=== PATIENT | female | born 1995 | race Caucasian/White ===

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

== ENCOUNTER → 2017-01-07 | Outpatient (CLI) | payer OTHER ==
[~2017-01-07] MED LIST changes: +BCPILLS PO; -ONDA4TAB10 SL
--- NOTE | 2017-01-07 17:21 | DIAGNOSTIC IMAGING REPORT ---
LEFT LOWER EXTREMITY VENOUS DOPPLER CLINICAL HISTORY: Left leg pain. COMPARISON STUDY: No previous studies for comparison. TECHNIQUE: Sonography of the deep venous system of the left lower extremity was performed. Compression and augmentation were evaluated. FINDINGS: The common femoral, superficial femoral and popliteal veins were compressible. Augmentation was normal. Flow was shown within the deep calf vessels. IMPRESSION: No evidence of deep venous thrombus within the left lower extremity. Electronically signed by: Darrian Jacobson M.D. 01/07/2017 5:20 PM Dictated Date/Time: 01/07/2017 5:15 PM
--- NOTE | 2017-01-07 17:36 | DIAGNOSTIC IMAGING REPORT ---
LEFT KNEE 4 VIEWS CLINICAL HISTORY: Left leg pain. FINDINGS: AP, crosstable lateral, tunnel, and sunrise views of left knee are obtained. No prior studies are available for comparison at the time of dictation. The skeletal structures are well mineralized. No fracture is seen. The joint spaces of the knee are well-maintained. There is no evidence of osteochondral defect on the tunnel image. No joint effusion is identified. The overlying soft tissues are within normal limits. IMPRESSION: Unremarkable radiographic assessment of the left knee. Electronically signed by: Werner Elder M.D. 01/07/2017 5:35 PM Dictated Date/Time: 01/07/2017 5:34 PM
== END | disposition home or self-care (01) ==
LOC: C.ULTR 16:47
PROVIDERS: ATTEND Student in an Organized Health Care Education/Training Program
DX: M25.562 Pain in left knee (principal); M79.605 Pain in left leg

== ENCOUNTER 2017-06-26 00:10 | Inpatient (IN) | payer OTHER ==
[~2017-06-26] VITALS: Ht 160 cm; Wt 63.4 kg
--- NOTE | 2017-06-26 01:10 | EMERGENCY ROOM VISIT NOTE ---
History Report prepared by Isaiah: Shree Orlando Under the Supervision of: Dr. Rachna Vernon D.O. First contact with patient: 00:24 Chief Complaint: LEG PAIN,LEG INJURY Stated Complaint: PAIN IN LFT LEG,KNEE CAP DOWN AND BACKSIDE History of Present Illness The patient is a 21 year old female who presents to the Emergency Room with complaints of constant, severe, left leg pain beginning four days ago. She currently rates her discomfort a 10/10 in severity. The patient states her pain starts above the left knee and radiates into her calf. She reports she has tried taking ibuprofen, but it is not helping. The patient notes bending her knee worsens her symptoms. She states she is experiencing numbness that radiates to her toes. The patient reports after showering, the painful area was red. She notes she has experienced six episodes of similar discomfort in the past 2 years. The patient states she was evaluated by her PCP and had an X-ray and US the last episode she had in January. She reports the US and x-ray were negative for clots. The patient notes she is still able to walk. She denies popping or locking of the knee, swelling, recent trauma, fevers, and chills. The patient notes she was hit in the knee with a softball six years ago before the first episode. Source of History: patient Onset: 4 days ago Position: leg (left) Symptom Intensity: severe Timing: constant Modifying Factors (Worsening): movement (bending it) Associated Symptoms: + numbness (radiates to her toes), No fevers, No chills Note: Associated symptoms: red discoloration to the painful area after showering Denies: popping or locking of the knee, swelling, recent trauma Review of Systems See HPI for pertinent positives & negatives. A total of 10 systems reviewed and were otherwise negative. Past Medical & Surgical Medical Problems: (1) Acute URI (2) Left leg swelling (3) Otitis externa of right ear (4) Septic arthritis (5) Swelling of joint of left knee Family History Diabetes mellitus FH: cancer Hypertension Social History Smoking Status: Current Every Day Smoker Alcohol Use: none Drug Use: none Marital Status: single Housing Status: lives with family Occupation Status: unemployed Current/Historical Medications Scheduled Sertraline (Zoloft), 50 MG PO DAILY Allergies Coded Allergies: No Known Allergies (Unverified , 07/28/16) Physical Exam Vital Signs Date Time Temp Pulse Resp B/P (MAP) Pulse Ox O2 Delivery O2 Flow Rate FiO2 06/26/17 03:30 106 15 119/71 100 Room Air 06/26/17 00:14 36.5 108 20 120/79 98 Room Air Physical Exam HEENT: Head - normocephalic and atraumatic Pupils are equal, round, and reactive to light. Extraocular eye muscles are intact, and sclera are anicteric. Nose - moist nasal mucosa without discharge. Mouth - moist buccal mucosa. Oropharynx is nonerythematous and there is no tonsillar exudate or edema noted. Neck: Supple; no JVD, nuchal rigidity, cervical lymphadenopathy. Heart: Regular rate and rhythm. No murmurs appreciated. Lungs: Clear to auscultation bilaterally with no wheezes, rales, or rhonchi. Abdomen: Soft, completely nontender, nondistended, with good bowel sounds. There are no palpable pulsatile masses or hepatosplenomegaly. There is no guarding, rigidity, or rebound noted. Extremities: No evidence of cyanosis or clubbing. There are easily palpable peripheral pulses.There is obvious edema to the left knee And pain with palpation. There is an effusion in the left knee. Tenderness to palpation in the popliteal fossa and the medial aspect of the left knee. Left calf is very edematous, tense, and painful. Skin: warm and dry with good turgor and no rashes. Medical Decision & Procedures ER Provider Diagnostic Interpretation: Radiology results as stated below per my review and the radiologist's interpretation: US VENOUS LEFT LOWER EXTREMITY: Prior 01/07/17 No DVT in the left lower extremity. Prominent nodes in the left groin. Likely within normal limits, with fatty morales. Multiple complex fluid collections. Distal left thigh to the medial knee in the area of pain: 8x2x6 cm. Left popliteal fossa 4x2x3 cm. Intramuscular collection from the distal left popliteal fossa region to the proximal calf 8x1x1 cm. DDX includes abscesses, hematoma, other complex fluid collections. Correlate and consider follow-up. Radiologist: Lexie Vergara MD Study ready at 0240 and initial results transmitted at 0247. Laboratory Results 06/26/17 01:04 Red Blood Count 4.30, Mean Corpuscular Volume 88.4, Mean Corpuscular Hemoglobin 30.9, Mean Corpuscular Hemoglobin Concent 35.0, Mean Platelet Volume 9.8, Neutrophils (%) (Auto) 77.6, Lymphocytes (%) (Auto) 14.1, Monocytes (%) (Auto) 7.2, Eosinophils (%) (Auto) 0.3, Basophils (%) (Auto) 0.5, Neutrophils # (Auto) 9.10, Lymphocytes # (Auto) 1.66, Monocytes # (Auto) 0.85, Eosinophils # (Auto) 0.03, Basophils # (Auto) 0.06 Test 06/26/17 01:04 White Blood Count 11.74 K/uL (4.8-10.8) Red Blood Count 4.30 M/uL (4.2-5.4) Hemoglobin 13.3 g/dL (12.0-16.0) Hematocrit 38.0 % (37-47) Mean Corpuscular Volume 88.4 fL (80-100) Mean Corpuscular Hemoglobin 30.9 pg (25-34) Mean Corpuscular Hemoglobin Concent 35.0 g/dl (32-36) Platelet Count 340 K/uL (130-400) Mean Platelet Volume 9.8 fL (7.4-10.4) Neutrophils (%) (Auto) 77.6 % Lymphocytes (%) (Auto) 14.1 % Monocytes (%) (Auto) 7.2 % Eosinophils (%) (Auto) 0.3 % Basophils (%) (Auto) 0.5 % Neutrophils # (Auto) 9.10 K/uL (1.4-6.5) Lymphocytes # (Auto) 1.66 K/uL (1.2-3.4) Monocytes # (Auto) 0.85 K/uL (0.11-0.59) Eosinophils # (Auto) 0.03 K/uL (0-0.5) Basophils # (Auto) 0.06 K/uL (0-0.2) RDW Standard Deviation 38.4 fL (36.4-46.3) RDW Coefficient of Variation 12.0 % (11.5-14.5) Immature Granulocyte % (Auto) 0.3 % Immature Granulocyte # (Auto) 0.04 K/uL (0.00-0.02) Erythrocyte Sedimentation Rate 24 mm/hr (0-21) C-Reactive Protein 1.06 mg/dl (0-0.29) Lyme Disease IgG Antibody POS (NEG) Laboratory results per my review. Medications Administered Medications (Trade) Dose Ordered Sig/Abelino Route Start Time Stop Time Status Last Admin Dose Admin Ketorolac Tromethamine (Toradol Inj) 30 mg NOW STAT IV 06/26/17 01:13 06/26/17 01:16 DC 06/26/17 01:26 30 MG Oxycodone/ Acetaminophen (Percocet 5-325mg Tab) 1 tab NOW STAT PO 06/26/17 01:13 06/26/17 01:16 DC 06/26/17 01:26 1 TAB Hydromorphone HCl (Dilaudid Inj) 0.5 mg NOW STAT IV 06/26/17 03:31 06/26/17 03:32 DC 06/26/17 03:36 0.5 MG Ceftriaxone Sodium (Rocephin Inj) 1 gm NOW STAT IV 06/26/17 04:05 06/26/17 04:10 DC 06/26/17 05:17 1 GM Vancomycin HCl 1000 mg/Sodium Chloride 270 ml @ 125 mls/hr NOW STAT IV 06/26/17 04:05 06/26/17 06:14 DC 06/26/17 06:08 125 MLS/HR Procedure 0113: Ordered Oxycodone/Acetaminophen 1 tab PO, Toradol Inj 30mg IV 0331: Ordered Hydromorphone HCl 0.5mg IV 0405: Ordered Vancomycin HCl 1000mg/Sodium Chloride 270ml @ 125mls/hr IV, Rocephin Inj 1gm IV ED Course 0034: Past medical records reviewed. The patient was evaluated in room A02 by the medical student under my supervision. 0055: The patient was evaluated in room A02 by me. A complete history and physical examination were performed. Nursing notes and previous electronic medical records were reviewed. IV lock was established and labs were drawn as above. I also completed a bedside ultrasound that showed obvious joint effusion. I was unable to test ligaments or ROM of the left knee secondary to pain. 0113: Ordered Oxycodone/Acetaminophen 1 tab PO, Toradol Inj 30mg IV. The patient went for a DVT study through ultrasound.. 0328: The patient has had increased pain and will be receiving Dilaudid. 0331: Ordered Hydromorphone HCl 0.5mg IV. I reviewed the results of the ultrasound with the patient and her mother. 0351: I discussed the case with Dr. Yuan, Orthopedics. It is recommended that medicine admit the patient and consult orthopedics. He recommended treating the patient with antibiotics presuming this may be infectious. 0402: Upon reevaluation, I discussed findings and results with her. She is much more comfortable. She verbalized agreement of the treatment plan. The patient will be evaluated for further management and care. 0405: Ordered Vancomycin HCl 1000mg/Sodium Chloride 270ml @ 125mls/hr IV, Rocephin Inj 1gm IV 0406: I discussed the patient's case [facility] The patient will be evaluated for further management and care. Medical Decision The patient is a 21 year old female who presents to the ED with constant left leg pain. Differential diagnosis includes septic arthritis, GOUT, Liang's cyst, bursitis, ligamentous injury, meniscus injury, DVT. Lab results show: WBC of 11.7, stable H&H, SED rate of 24, C-reactive protein of 1.06 This is a 21 old female patient presents to the emergency department with significant discomfort in her left knee. She has obvious edema and decreased range of motion secondary to pain. Ultrasound was performed at the bedside which showed an obvious joint effusion. She went for formal ultrasound of the left lower extremity to rule out DVT. This was negative for DVT but showed multiple complex fluid collections. There appeared to be some involvement or fluid collection within muscle. This was concerning for myositis or significant abscess. I discussed the case with orthopedics and they recommended IV antibiotics and admission to the hospital for further care. I [facility] the [facility] and [facility] will evaluate for further management. The patient did finally get relief of her discomfort with the IV analgesia that I administered. Medication Reconcilliation Current Medication List: was personally reviewed by me Blood Pressure Screening Patient's blood pressure: Normal blood pressure Blood pressure disposition: Did not require urgent referral Consults Time Called: [phone] Consulting Physician: Dr. Yuan, Orthopedics Returned Call: [phone] I discussed the case with Dr. Yuan, Orthopedics. It is recommended that medicine be consulted and treat the patient as if it is infectious. Additional Consults: Time Called: 401 Consulted Physician: Jacqueline Chaidez Hospitalist Returned Call: [phone] Additional Comments: I discussed the patient's case with Jacqueline Chaidez Hospitalist. The patient will be evaluated for further management and care. Impression Primary Impression: Swelling of joint of left knee Additional Impression: Knee effusion, left Scribe Attestation The scribe's documentation has been prepared under my direction and personally reviewed by me in its entirety. I confirm that the note above accurately reflects all work, treatment, procedures, and medical decision making performed by me. Departure Information Dispostion Being Evaluated By Hospitalist Referrals No Doctor, Assigned (PCP) Patient Instructions My [facility] Problem Qualifiers
[2017-06-26] MEDS ORDERED: KETOROLAC TROMETHAMINE 30 MG/ML VIAL IV STA (01:13)
[2017-06-26] MEDS ORDERED: OXYCODONE/ACETAMINOPHEN 5-325 TAB PO STA (01:13)
[2017-06-26 01:47] LABS: BASO % 0.5 %; BASO ABS # 0.06 K/uL (0-0.2); EOS % 0.3 %; EOS ABS # 0.03 K/uL (0-0.5); HEMOGLOBIN 13.3 g/dL (12.0-16.0); IG# 0.04 K/uL (0.00-0.02); LYMPH % 14.1 %; LYMPH ABS # 1.66 K/uL (1.2-3.4); MEAN CELL VOLUME 88.4 fL (80-100); MEAN CORPUSCULAR HEMOGLOBIN 30.9 pg (25-34); MEAN PLATELET VOLUME 9.8 fL (7.4-10.4); MONO % 7.2 %; MONO ABS # 0.85 K/uL (0.11-0.59); NEUT % 77.6 %; PLATELET COUNT 340 K/uL (130-400); RED CELL DISTRIBUTION WIDTH SD 38.4 fL (36.4-46.3); WHITE BLOOD COUNT 11.74 K/uL (4.8-10.8)
[2017-06-26] MEDS ORDERED: HYDROmorphone INJ 0.5 MG/0.5 ML SYR IV STA ×2 (03:31→05:05)
[2017-06-26] MEDS ORDERED: SERT50TA PO (04:05)
[2017-06-26] MEDS ORDERED: CEFTRIAXONE SOD INJ 1 GM ADDVIAL IV STA (04:05)
[2017-06-26] MEDS ORDERED: VANCOMYCIN IV 1,000 MG in SODIUM CHLORIDE 0.9% 250ML 250 ML IV STA (04:05)
[2017-06-26] MEDS ORDERED: VANCOMYCIN CONSULT ACTIVE PRN ×2 (04:15→15:11)
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
[2017-06-26] MEDS ORDERED: IV FLUIDS COMPLETED PRN (05:30)
[2017-06-26 05:59] LABS: ALBUMIN 3.4 gm/dl (3.4-5.0); CALCIUM 8.7 mg/dl (8.5-10.1); CREATININE 0.64 mg/dl (0.60-1.20); POTASSIUM 3.2 mmol/L (3.5-5.1)
[2017-06-26 06:00] VITALS: BP 103/62; PULSE 72; TEMP 36.7; O2SAT 98; Ht 160 cm; Wt 63.4 kg
[2017-06-26 06:02] LABS: TOTAL PROTEIN 6.9 gm/dl (6.4-8.2)
[2017-06-26] MEDS: ACETAMINOPHEN 325 MG TAB PO PRN (06:29)
[2017-06-26] MEDS ORDERED: INFLUENZA VIRUS QUAD VACCINE 0.5 ML SYR IM. ONE (07:00)
[2017-06-26] MEDS ORDERED: INFLUENZA ADMINISTRATION CHARGE ONE (07:00)
[2017-06-26 07:06] VITALS: BP 91/52; PULSE 71; TEMP 36.5; O2SAT 99
--- NOTE | 2017-06-26 07:15 | DIAGNOSTIC IMAGING REPORT ---
L VENOUS DOPP LOWER EXT UNILAT CLINICAL HISTORY: 21 years-old Female presenting with eval for dvt, no history of recent injury. TECHNIQUE: Real-time grayscale and color and spectral Doppler ultrasound imaging of the veins of the left lower extremity was performed. Compression and augmentation were also utilized. COMPARISON: 01/07/2017. FINDINGS: Left: Common femoral vein: Patent. Greater saphenous vein: Patent. Deep femoral vein: Patent. Femoral vein: Patent. Popliteal vein: Patent. Calf veins: Patent. Other: Multiple prominent benign-appearing lymph nodes in the left inguinal region and left popliteal fossa. A 2.6 x 4.3 x 1.5 cm hypoechoic complex lesion in the popliteal fossa demonstrates no internal vascularity on color Doppler. A 7.8 x 1.0 x 1.2 cm elongated hypoechoic collection in the left popliteal fossa immediately adjacent to the vascular bundle is avascular on color Doppler and is likely subjacent to the proximal gastrocnemius. Additionally, in the anterior medial left knee at the region of pain, an anechoic collection with internal complexity evidence by polypoid septae measures 8.0 x 1.8 x 6.4 cm. IMPRESSION: 1. No evidence of deep venous thrombosis. 2. Reactive benign-appearing lymph nodes in the left groin and left popliteal fossa. 3. Findings concerning for hematoma in the left popliteal fossa. 4. Additional avascular complex lesion in the popliteal fossa is indeterminate. 5. Primarily anechoic collection in the anterior distal thigh may represent the suprapatellar recess of the knee joint in the presence of a large knee joint effusion and synovitis. Recommend MRI of the knee with and without contrast for further evaluation. The report will be called/faxed according to standard departmental protocol. Electronically signed by: Jorge Graf M.D. 06/26/2017 7:13 AM Dictated Date/Time: 06/26/2017 7:08 AM
[2017-06-26] MEDS ORDERED: GADAVIST IV PRN (09:15)
--- NOTE | 2017-06-26 09:41 | DIAGNOSTIC IMAGING REPORT ---
LOWER EXT JOINT COMBO CLINICAL HISTORY: 21 years-old Female presenting with left leg swelling, left knee pain and swelling started 06/22/2017, no known injury. TECHNIQUE: Multisequence, multiplanar MR imaging of the left knee was performed before and after the administration of intravenous contrast. IV contrast: 6 mL of Gadavist. COMPARISON: Correlation made to ultrasound performed earlier the same day as well as plain radiographs from 01/07/2017. FINDINGS: Localizer images: Unremarkable. Bone marrow: Normal bone marrow signal intensity. No bony edema. Articular cartilage: Articular cartilage preserved. Menisci: Medial and lateral menisci intact. Cruciate ligaments: Anterior and posterior cruciate ligaments intact. Collateral ligament: Medial collateral ligament intact. Lateral collateral ligament complex including the biceps femoris tendon, fibular collateral ligament, popliteal tendon, and iliotibial band intact. Superficial edema noted along the distal aspect of the iliotibial band. Quadriceps and patellar tendons: Quadriceps and patellar tendons intact. Knee joint effusion: Large knee joint effusion. Intense synovial enhancement and mild synovial thickening suggests synovitis. The fluid noted deep to the medial head of the gastrocnemius likely represents extension of synovial fluid as this appears to connect to the knee joint (series 11 image 17). However, this portion of synovial outpouching is irregular with mild surrounding vague enhancement suggesting inflammation. Prominent popliteal cyst. Muscle: Intramuscular edema noted in the medial head of the gastrocnemius extending from the origin at the femur distally involving a large portion of the visualized muscle belly. Extensive surrounding interfascial fluid. The tendon at the origin of the medial gastrocnemius head is intact. The myotendinous junction remains intact though demonstrates the greatest degree of surrounding intramuscular edema. The lateral gastrocnemius is essentially normal. IMPRESSION: 1. Findings consistent with large knee joint effusion with possible synovitis. This is nonspecific. Differential considerations include trauma, inflammatory arthropathy, or infection. Infection is felt to be less likely given the absence of any bone marrow edema. Aspiration could be considered as clinically indicated. 2. Extensive intramuscular edema within the medial gastrocnemius may imply muscle strain in the setting of overuse or trauma. No evidence of myotendinous or tendinous tear. If there is no history of overuse or trauma, muscular edema may be reactive to adjacent inflammatory change at the knee joint. 3. Prominent popliteal cyst with greater extension of a synovial outpouching deep to the medial gastrocnemius than is usually observed. Inflammatory change surrounds this portion. It is uncertain if this represents rupture of a popliteal cyst with secondary inflammatory change, or this outpouching is consequent to the large joint effusion with joint inflammatory change. No solid mass. The report will be called/faxed according to standard departmental protocol. Electronically signed by: Jorge Graf M.D. 06/26/2017 9:40 AM Dictated Date/Time: 06/26/2017 9:24 AM
--- NOTE | 2017-06-26 10:04 | DIAGNOSTIC IMAGING REPORT ---
KNEE 4 OR MORE VIEWS CLINICAL HISTORY: 21 years-old Female presenting with left knee swelling. TECHNIQUE: Frontal, sunrise, tunnel, and lateral views of the left knee were obtained. COMPARISON: MR from earlier the same day. FINDINGS: No acute fracture or malalignment. Large knee joint effusion. Diffuse soft tissue swelling. No patellar subluxation. No degenerative change. IMPRESSION: Large knee joint effusion without acute osseous injury. Electronically signed by: Jorge Graf M.D. 06/26/2017 10:02 AM Dictated Date/Time: 06/26/2017 10:02 AM
[2017-06-26] MEDS ORDERED: NURSING VERBAL MED ORDER ONE ×2 (10:45→11:00)
[2017-06-26] MEDS ORDERED: TRAMADOL HCL 50 MG TAB PO PRN (11:00)
[2017-06-26] MEDS: MoRPHine SULFATE 2 MG/ML CARP IV PRN ×2 (13:22→18:09)
[2017-06-26] MEDS ORDERED: ETHYL CHLORIDE AER SPR 100 ML CAN EXT ONE (13:30)
--- NOTE | 2017-06-26 14:22 | Orthopedic Consultation ---
Orthopedic Consultation Date of Consultation: Jun 26, 2017. Attending Physician: Gerald Hinton MD Reason for Consultation: Left knee pain History of Present Illness The patient is a 21-year-old female who presents for evaluation for chronic atraumatic left knee pain which began in January 2017. Previously seen [facility] x-rays performed which were negative at that time. Initial symptoms lasted for a couple weeks she reports. Pain returned this previous Friday and has progressively gotten worse. She reports swelling of the knee, but denies trauma, fevers, chills, nausea, vomiting, diarrhea. She has pain and difficulty bearing weight. She denies numbness tingling to the left lower extremity. She denies previous surgery. Denies prior rash or tick bite. Past Medical/Surgical History Medical Problems: (1) Closed head injury Status: Acute (2) Concussion Status: Acute (3) Headache Status: Acute (4) Neck pain Status: Acute Family History Diabetes mellitus FH: cancer Hypertension Social History Smoking Status: Current Every Day Smoker Drug Use: none Marital Status: single Housing Status: lives with family Occupation Status: student Allergies Coded Allergies: No Known Allergies (Unverified , 07/28/16) Home Medications Scheduled Sertraline (Zoloft), 50 MG PO DAILY Current Inpatient Medications Current Inpatient Medications Medications (Trade) Dose Ordered Sig/Abelino Route Start Time Stop Time Status Last Admin Dose Admin Acetaminophen (Tylenol Tab) 325 mg Q4H PRN PO 06/26/17 05:15 07/26/17 05:14 Miscellaneous (Iv Fluids Completed) 1 ea PRN PRN N/A 06/26/17 05:30 06/26/18 05:29 Gadobutrol (Gadavist) 6 mmol UD PRN IV 06/26/17 09:15 06/30/17 09:14 Tramadol HCl (Ultram Tab) `1-2 tabs for pain 1 tab ... Q4H PRN PO 06/26/17 11:00 07/26/17 10:59 06/26/17 10:58 100 MG Morphine Sulfate (MoRPHine SULFATE INJ) 2 mg Q4HWA PRN IV 06/26/17 13:00 07/10/17 12:59 06/26/17 13:22 2 MG Review of Systems Review of systems negative with the exception of those mentioned in the HPI above. Physical Exam Date Time Temp Pulse Resp B/P (MAP) Pulse Ox O2 Delivery O2 Flow Rate FiO2 06/26/17 07:52 Room Air 06/26/17 07:06 36.5 71 14 91/52 (65) 99 Room Air 06/26/17 06:00 36.7 72 18 103/62 98 Room Air 06/26/17 05:33 70 15 119/66 95 06/26/17 05:21 71 15 119/66 97 Room Air 06/26/17 03:30 106 15 119/71 100 Room Air 06/26/17 00:14 36.5 108 20 120/79 98 Room Air No apparent distress, alert and oriented 3. Left lower extremity is neurovascularly sensory intact grossly. Positive EHL/ FHL/GS/TA, range of motion limited secondary to pain, 0-45 of flexion. No erythema, large effusion. Skin normal and temperature to touch. Compartments soft nontender. Laboratory Results Last 24 Hours Test 06/26/17 01:04 06/26/17 05:29 06/26/17 13:40 White Blood Count 11.74 K/uL Red Blood Count 4.30 M/uL Hemoglobin 13.3 g/dL Hematocrit 38.0 % Mean Corpuscular Volume 88.4 fL Mean Corpuscular Hemoglobin 30.9 pg Mean Corpuscular Hemoglobin Concent 35.0 g/dl Platelet Count 340 K/uL Mean Platelet Volume 9.8 fL Neutrophils (%) (Auto) 77.6 % Lymphocytes (%) (Auto) 14.1 % Monocytes (%) (Auto) 7.2 % Eosinophils (%) (Auto) 0.3 % Basophils (%) (Auto) 0.5 % Neutrophils # (Auto) 9.10 K/uL Lymphocytes # (Auto) 1.66 K/uL Monocytes # (Auto) 0.85 K/uL Eosinophils # (Auto) 0.03 K/uL Basophils # (Auto) 0.06 K/uL RDW Standard Deviation 38.4 fL RDW Coefficient of Variation 12.0 % Immature Granulocyte % (Auto) 0.3 % Immature Granulocyte # (Auto) 0.04 K/uL Erythrocyte Sedimentation Rate 24 mm/hr C-Reactive Protein 1.06 mg/dl Sodium Level 138 mmol/L Potassium Level 3.2 mmol/L Chloride Level 107 mmol/L Carbon Dioxide Level 25 mmol/L Anion Gap 6.0 mmol/L Blood Urea Nitrogen 12 mg/dl Creatinine 0.64 mg/dl Est Creatinine Clear Calc Drug Dose 127.9 ml/min Estimated GFR () 149.9 Estimated GFR (Non- 129.4 BUN/Creatinine Ratio 17.9 Random Glucose 97 mg/dl Calcium Level 8.7 mg/dl Total Bilirubin 0.7 mg/dl Aspartate Amino Transf (AST/SGOT) 11 U/L Alanine Aminotransferase (ALT/SGPT) 12 U/L Alkaline Phosphatase 73 U/L Total Protein 6.9 gm/dl Albumin 3.4 gm/dl Globulin 3.5 gm/dl Albumin/Globulin Ratio 1.0 Assessment & Plan 21 yo female with chronic atraumatic left knee pain, effusion. I indicated the patient for a arthrocentesis of her left knee, risks/benefits were explained to the patient in detail. Verbal consent was obtained at that time. Under sterile conditions 38 cc of bright yellow cloudy fluid, with obvious precipitate was aspirated from the left knee. The patient tolerated the procedure well and noted relief in her symptoms as well as increase range of motion to 90 of flexion. Synovial fluid sent for cell count, Gram stain culture, fungal, crystals, Lyme. Based on the patient's physical exam and clinical presentation differentials include aseptic synovitis, gout, Lyme and septic arthritis which is less likely. -Pain control -Maintain NPO -Will f/u lab results once available -Trend inflammatory labs I reviewed the patient's imaging and the results are noted below. Thank you for the consultation. Results LOWER EXT JOINT COMBO CLINICAL HISTORY: 21 years-old Female presenting with left leg swelling, left knee pain and swelling started 06/22/2017, no known injury. TECHNIQUE: Multisequence, multiplanar MR imaging of the left knee was performed before and after the administration of intravenous contrast. IV contrast: 6 mL of Gadavist. COMPARISON: Correlation made to ultrasound performed earlier the same day as well as plain radiographs from 01/07/2017. FINDINGS: Localizer images: Unremarkable. Bone marrow: Normal bone marrow signal intensity. No bony edema. Articular cartilage: Articular cartilage preserved. Menisci: Medial and lateral menisci intact. Cruciate ligaments: Anterior and posterior cruciate ligaments intact. Collateral ligament: Medial collateral ligament intact. Lateral collateral ligament complex including the biceps femoris tendon, fibular collateral ligament, popliteal tendon, and iliotibial band intact. Superficial edema noted along the distal aspect of the iliotibial band. Quadriceps and patellar tendons: Quadriceps and patellar tendons intact. Knee joint effusion: Large knee joint effusion. Intense synovial enhancement and mild synovial thickening suggests synovitis. The fluid noted deep to the medial head of the gastrocnemius likely represents extension of synovial fluid as this appears to connect to the knee joint (series 11 image 17). However, this portion of synovial outpouching is irregular with mild surrounding vague enhancement suggesting inflammation. Prominent popliteal cyst. Muscle: Intramuscular edema noted in the medial head of the gastrocnemius extending from the origin at the femur distally involving a large portion of the visualized muscle belly. Extensive surrounding interfascial fluid. The tendon at the origin of the medial gastrocnemius head is intact. The myotendinous junction remains intact though demonstrates the greatest degree of surrounding intramuscular edema. The lateral gastrocnemius is essentially normal. IMPRESSION: 1. Findings consistent with large knee joint effusion with possible synovitis. This is nonspecific. Differential considerations include trauma, inflammatory arthropathy, or infection. Infection is felt to be less likely given the absence of any bone marrow edema. Aspiration could be considered as clinically indicated. 2. Extensive intramuscular edema within the medial gastrocnemius may imply muscle strain in the setting of overuse or trauma. No evidence of myotendinous or tendinous tear. If there is no history of overuse or trauma, muscular edema may be reactive to adjacent inflammatory change at the knee joint. 3. Prominent popliteal cyst with greater extension of a synovial outpouching deep to the medial gastrocnemius than is usually observed. Inflammatory change surrounds this portion. It is uncertain if this represents rupture of a popliteal cyst with secondary inflammatory change, or this outpouching is consequent to the large joint effusion with joint inflammatory change. No solid mass.
[2017-06-26] MEDS ORDERED: POTASSIUM CHLORIDE 10 MEQ TABCR PO ONE (15:00)
[2017-06-26] MEDS ORDERED: PIPERACILL/TAZOBAC CONSULT ACTIVE PRN (15:15)
[2017-06-26] MEDS ORDERED: VANCOMYCIN IV 1,500 MG in SODIUM CHLORIDE 0.9% 500ML 500 ML IV ONE (15:30)
[2017-06-26 15:33] VITALS: BP 100/61; PULSE 73; TEMP 36.6; O2SAT 97
[2017-06-26] MEDS: NSS + 20MEQ KCL 1000ML 1,000 ML IV SCH (15:51)
[2017-06-26] MEDS ORDERED: PIPERACILL/TAZOBAC IV 3.375 GM in DEXTROSE 5% 100ML IV ONE (16:00)
--- NOTE | 2017-06-26 16:20 | Pharmacy Progress Note ---
Pharmacy Abx Dose Short Note Date of Service Jun 26, 2017. Assessment & Plan Assessment 21 year old female receiving Vancomycin and Zosyn for treatment of possible septic arthritis. Day # 1 of antimicrobial therapy. * No prior history of surgery or known tick bite. * Pt is afebrile * WBC=11.7 * Blood and joint fluid cultures pending Plan Vancomycin * Loading dose: 1500mg (25mg/kg) IV x 1 * Maintenance dose: 1 gm IV q 8 hours. * Goal trough for septic arthritis: 15-20mcg/mL * Trough level ordered for 06/27 @2130 Zosyn * 3.375 gm IV x 1 * 3.375 gm IV extended interval infusion q 8 hours Pharmacy will continue to follow and will adjust dose/frequency as necessary. Thank you.
[2017-06-26 19:06] VITALS: TEMP 36.6
[2017-06-26] MEDS ORDERED: DiphenhydrAMINE HCL 50 MG/ML VIAL IV STA (19:23)
[2017-06-26] MEDS ORDERED: CONSULT PHARMACY STA (19:23)
[2017-06-26] MEDS ORDERED: DiphenhydrAMINE HCL 50 MG/ML VIAL IV PRN (19:30)
[2017-06-26] MEDS ORDERED: DiphenhydrAMINE HCL 50 MG/ML VIAL ONE (19:45)
--- NOTE | 2017-06-26 19:47 | Progress Note ---
Medicine Progress Note Date & Time of Visit: Jun 26, 2017 at 19:37. Subjective seen resting in bed, mother and grandmother at bedside s/p arthrocentesis states left knee pain is moderate denies fever/chills denies other symptoms Objective Last 8 Hrs Date Time Temp Pulse Resp B/P (MAP) Pulse Ox O2 Delivery O2 Flow Rate FiO2 06/26/17 19:06 36.6 06/26/17 15:33 36.6 73 18 100/61 (74) 97 Room Air Physical Exam: General- oriented x 3, not in distress, speaks in sentences with no effort Head- atraumatic Eyes- PERRL, EOMI, anicteric ENT- oropharynx clear Neck- supple, no JVD Lungs- clear breath sounds bilaterally, no rales/wheezes Heart- regular rhythm; no murmur, normal rate Abdomen- normal bowel sounds, soft, nontender Extremities- (+) moderate edema, mild warmth, mild tenderness of the left knee no pretibial edema, no calf tenderness; peripheral pulses intact Neuro- alert, oriented x 3;no gross focal deficits Skin- warm & dry Laboratory Results: Last 24 Hours Test 06/26/17 01:04 06/26/17 05:29 06/26/17 13:40 White Blood Count 11.74 K/uL Red Blood Count 4.30 M/uL Hemoglobin 13.3 g/dL Hematocrit 38.0 % Mean Corpuscular Volume 88.4 fL Mean Corpuscular Hemoglobin 30.9 pg Mean Corpuscular Hemoglobin Concent 35.0 g/dl Platelet Count 340 K/uL Mean Platelet Volume 9.8 fL Neutrophils (%) (Auto) 77.6 % Lymphocytes (%) (Auto) 14.1 % Monocytes (%) (Auto) 7.2 % Eosinophils (%) (Auto) 0.3 % Basophils (%) (Auto) 0.5 % Neutrophils # (Auto) 9.10 K/uL Lymphocytes # (Auto) 1.66 K/uL Monocytes # (Auto) 0.85 K/uL Eosinophils # (Auto) 0.03 K/uL Basophils # (Auto) 0.06 K/uL RDW Standard Deviation 38.4 fL RDW Coefficient of Variation 12.0 % Immature Granulocyte % (Auto) 0.3 % Immature Granulocyte # (Auto) 0.04 K/uL Erythrocyte Sedimentation Rate 24 mm/hr C-Reactive Protein 1.06 mg/dl Lyme Disease IgG Antibody POS Lyme Disease IgM Antibody NEG Sodium Level 138 mmol/L Potassium Level 3.2 mmol/L Chloride Level 107 mmol/L Carbon Dioxide Level 25 mmol/L Anion Gap 6.0 mmol/L Blood Urea Nitrogen 12 mg/dl Creatinine 0.64 mg/dl Est Creatinine Clear Calc Drug Dose 127.9 ml/min Estimated GFR () 149.9 Estimated GFR (Non- 129.4 BUN/Creatinine Ratio 17.9 Random Glucose 97 mg/dl Calcium Level 8.7 mg/dl Total Bilirubin 0.7 mg/dl Aspartate Amino Transf (AST/SGOT) 11 U/L Alanine Aminotransferase (ALT/SGPT) 12 U/L Alkaline Phosphatase 73 U/L Total Protein 6.9 gm/dl Albumin 3.4 gm/dl Globulin 3.5 gm/dl Albumin/Globulin Ratio 1.0 Synovial Fluid Source KNEE Synovial Fluid Color YELLOW Synovial Fluid Appearance CLOUDY Synovial Fluid WBC 30549 /uL Synovial Fluid RBC < 3000 /uL Synovial Fluid Polynuclear WBCs % 91.8 % Synovial Fluid Mononuclear WBCs % 8.2 % Synovial Fluid Crystals Date/Time Source Procedure Growth Status 06/26/17 04:59 Blood Blood Culture Pending Received 06/26/17 04:55 Blood Blood Culture Pending Received 06/26/17 13:40 Joint Fluid/Space (Synovial) Knee Left Fungal Smear - Final Resulted 06/26/17 13:40 Joint Fluid/Space (Synovial) Knee Left Fungal Culture Pending Resulted 06/26/17 13:40 Joint Fluid/Space (Synovial) Knee Left Gram Stain - Final Resulted 06/26/17 13:40 Joint Fluid/Space (Synovial) Knee Left Bacterial Culture Pending Resulted Assessment & Plan 21 year old female presenting with progressive left knee swelling... POSSIBLE LEFT KNEE SEPTIC ARTHRITIS s/p Arthrocentesis 06/26/17 synovial fluid studies showing possible septic arthritis Vanco + Zosyn restarted , given at 4pm and 6pm at around 715 pm, patient reported generalized pruritus, also has facial erythema patient examined at bedside after getting [employer] message not in distress, but has generalized pruritus, no rash noted, no sob/tongue swelling/lip swelling - Vanco and Zosyn discontinued Benadryl 12.5mg IV stat ordered Dapto and Aztreonam ordered - patient also received 2nd dose of Morphine at 6pm, possible cause of pruritus ? Morphine discontinued changed to Toradol and Ofirmev IV - ID consulted appreciate Ortho recommendations discussed with patient and her mother plan of care at length they are agreeable and comfortable with plan of care all questions answered Current Inpatient Medications: Current Inpatient Medications Medications (Trade) Dose Ordered Sig/Abelino Route Start Time Stop Time Status Last Admin Dose Admin Acetaminophen (Tylenol Tab) 325 mg Q4H PRN PO 06/26/17 05:15 07/26/17 05:14 Miscellaneous (Iv Fluids Completed) 1 ea PRN PRN N/A 06/26/17 05:30 06/26/18 05:29 Gadobutrol (Gadavist) 6 mmol UD PRN IV 06/26/17 09:15 06/30/17 09:14 Tramadol HCl (Ultram Tab) `1-2 tabs for pain 1 tab ... Q4H PRN PO 06/26/17 11:00 07/26/17 10:59 06/26/17 10:58 100 MG Morphine Sulfate (MoRPHine SULFATE INJ) 2 mg Q4HWA PRN IV 06/26/17 13:00 07/10/17 12:59 06/26/17 18:09 2 MG Potassium Chloride/Sodium Chloride 1,000 ml @ 80 mls/hr [id number] IV 06/26/17 14:30 07/26/17 14:29 06/26/17 15:51 80 MLS/HR Sertraline HCl (Zoloft Tab) 50 mg DAILY PO 06/27/17 09:00 07/27/17 08:59 Diphenhydramine HCl (Benadryl Inj) 12.5 mg NOW STAT IV 06/26/17 19:23 06/26/17 19:24 UNV Diphenhydramine HCl (Benadryl Inj) 12.5 mg Q6H PRN IV 06/26/17 19:30 07/26/17 19:29 UNV Miscellaneous Information (Pharmacy Consult) 1 ea NOW STAT N/A 06/26/17 19:23 06/26/17 19:24 UNV
[2017-06-26] MEDS ORDERED: DAPTOMYCIN CONSULT ACTIVE PRN (20:00)
[2017-06-26] MEDS ORDERED: AZTREONAM CONSULT ACTIVE PRN (20:00)
[2017-06-26] MEDS: AZTREONAM 2000 MG in DEXTROSE 5% 100 ML IV SCH (20:34)
[2017-06-26] MEDS: DAPTOMYCIN IV SCH (20:34)
[2017-06-26] MEDS ORDERED: PIPERACILL/TAZOBAC IV 3.375 GM in DEXTROSE 5% 100ML IV SCH (22:00)
[2017-06-26] MEDS ORDERED: VANCOMYCIN IV 1,000 MG in SODIUM CHLORIDE 0.9% 250ML 250 ML IV SCH (22:00)
[2017-06-26] MEDS ORDERED: METOCLOPRAMIDE HCL INJ 5 MG/ML 2 ML VIAL IV. STA (22:04)
[2017-06-26] MEDS: ACETAMINOPHEN IV 650 MG in EMPTY BAG 0 ML IV PRN (22:08)
[2017-06-26] MEDS: ONDANSETRON INJ 2 MG/ML 2 ML VIAL IV PRN (22:10)
[2017-06-26 23:07] VITALS: BP 97/58; PULSE 107; TEMP 37; O2SAT 98
[2017-06-27] MEDS: ACETAMINOPHEN IV 650 MG in EMPTY BAG 0 ML IV PRN ×2 (04:39→11:13)
[2017-06-27] MEDS: AZTREONAM 2000 MG in DEXTROSE 5% 100 ML IV SCH (04:43)
[2017-06-27] MEDS: ONDANSETRON INJ 2 MG/ML 2 ML VIAL IV PRN ×2 (04:51→10:56)
[2017-06-27] MEDS: NSS + 20MEQ KCL 1000ML 1,000 ML IV SCH ×2 (04:51→18:39)
[2017-06-27 07:30] VITALS: BP 96/58; PULSE 92; TEMP 36.5; O2SAT 99
[2017-06-27 07:46] LABS: CREATININE 0.77 mg/dl (0.60-1.20)
[2017-06-27] MEDS: KETOROLAC TROMETHAMINE 15 MG/ML VIAL IV PRN (08:20)
--- NOTE | 2017-06-27 08:53 | Progress Note ---
Medicine Progress Note Date & Time of Visit: Jun 27, 2017 at 08:49. Subjective sen resting in bed, mother at bedside had nausea overnight pruritus resolved, no rash developed reports mild frontal headache left knee pain is improved compared to yesterday, can move left knee better no chest pain, dyspnea, or other symptoms Objective Last 8 Hrs Date Time Temp Pulse Resp B/P (MAP) Pulse Ox O2 Delivery O2 Flow Rate FiO2 06/27/17 07:30 36.5 92 16 96/58 (71) 99 Room Air Physical Exam: General- oriented x 3, not in distress, speaks in sentences with no effort Head- atraumatic Eyes- anicteric Neck- no JVD Lungs- clear breath sounds bilaterally Heart- regular rhythm; no murmur, normal rate Abdomen- normal bowel sounds, soft, nontender Extremities- (+) mild edema, mild warmth,very mild tenderness of the left knee-- > Improved no pretibial edema, no calf tenderness; peripheral pulses intact Neuro- alert, oriented x 3;no gross focal deficits Skin- warm & dry Laboratory Results: Last 24 Hours Test 06/26/17 13:40 06/27/17 06:46 06/27/17 08:33 Synovial Fluid Source KNEE Synovial Fluid Color YELLOW Synovial Fluid Appearance CLOUDY Synovial Fluid WBC 19620 /uL Synovial Fluid RBC < 3000 /uL Synovial Fluid Polynuclear WBCs % 91.8 % Synovial Fluid Mononuclear WBCs % 8.2 % Synovial Fluid Crystals Creatinine 0.77 mg/dl Est Creatinine Clear Calc Drug Dose 105.4 ml/min Estimated GFR () 129.7 Estimated GFR (Non- 111.9 Date/Time Source Procedure Growth Status 06/26/17 13:40 Joint Fluid/Space (Synovial) Knee Left Fungal Smear - Final Resulted 06/26/17 13:40 Joint Fluid/Space (Synovial) Knee Left Fungal Culture Pending Resulted 06/26/17 13:40 Joint Fluid/Space (Synovial) Knee Left Gram Stain - Final Resulted 06/26/17 13:40 Joint Fluid/Space (Synovial) Knee Left Bacterial Culture Pending Resulted Assessment & Plan 21 year old female presenting with progressive left knee swelling... POSSIBLE LEFT KNEE SEPTIC ARTHRITIS s/p Arthrocentesis 06/26/17 synovial fluid studies showing possible septic arthritis 06/26: Vanco + Zosyn restarted , given at 4pm and 6pm at around 715 pm, patient reported generalized pruritus, also has facial erythema patient examined at bedside after getting [employer] message not in distress, but has generalized pruritus, no rash noted, no sob/tongue swelling/lip swelling - Vanco and Zosyn discontinued Benadryl 12.5mg IV stat ordered Dapto and Aztreonam ordered - patient also received 2nd dose of Morphine at 6pm, possible cause of pruritus ? Morphine discontinued changed to Toradol and Ofirmev IV 06/26: afebrile knee pain and edema improving blood cultures pending synovial fluid cultures pending continue Dapto + Aztreonam IV Day 2 awaiting ID recommendations - ID consulted appreciate Ortho recommendations PRURITUS patient received Vanco, Zosyn, Morphine prior to developing pruritus resolved with Benadryl and discontinuing above medications monitor discussed with patient and her mother plan of care at length they are agreeable and comfortable with plan of care all questions answered Dispo pending anticipate d/c home IV vs. PO antibiotics per ID Current Inpatient Medications: Current Inpatient Medications Medications (Trade) Dose Ordered Sig/Abelino Route Start Time Stop Time Status Last Admin Dose Admin Acetaminophen (Tylenol Tab) 325 mg Q4H PRN PO 06/26/17 05:15 07/26/17 05:14 Miscellaneous (Iv Fluids Completed) 1 ea PRN PRN N/A 06/26/17 05:30 06/26/18 05:29 Gadobutrol (Gadavist) 6 mmol UD PRN IV 06/26/17 09:15 06/30/17 09:14 Potassium Chloride/Sodium Chloride 1,000 ml @ 80 mls/hr [id number] IV 06/26/17 14:30 07/26/17 14:29 06/27/17 04:51 80 MLS/HR Sertraline HCl (Zoloft Tab) 50 mg DAILY PO 06/27/17 09:00 07/27/17 08:59 Diphenhydramine HCl (Benadryl Inj) 12.5 mg Q6H PRN IV 06/26/17 19:30 07/26/17 19:29 Ketorolac Tromethamine (Toradol Inj) 15 mg Q6H PRN IV 06/26/17 19:45 07/01/17 19:44 06/27/17 08:20 15 MG Acetaminophen 650 mg/Empty Bag 65 ml @ 260 mls/hr Q6H PRN IV 06/26/17 19:45 07/26/17 19:44 06/27/17 04:39 260 MLS/HR Daptomycin (Consult) 1 ea UD PRN N/A 06/26/17 20:00 07/26/17 19:59 Aztreonam (Consult) 1 ea UD PRN N/A 06/26/17 20:00 07/26/17 19:59 Daptomycin 380 mg/ Syringe 7.6 ml @ 3.8 mls/min Q24H IV 06/26/17 20:00 08/07/17 19:59 06/26/17 20:34 3.8 MLS/MIN Aztreonam 2000 mg/ Dextrose 110 ml @ 110 mls/hr Q8H IV 06/26/17 21:00 08/07/17 20:59 06/27/17 04:43 110 MLS/HR Ondansetron HCl (Zofran Inj) 4 mg Q4H PRN IV 06/26/17 21:15 07/26/17 21:14 06/27/17 04:51 4 MG
[2017-06-27] MEDS: SERTRALINE HCL 50 MG TAB PO SCH (08:58)
[2017-06-27 09:13] LABS: BASO % 0.1 %; BASO ABS # 0.01 K/uL (0-0.2); EOS % 0.6 %; EOS ABS # 0.06 K/uL (0-0.5); HEMATOCRIT 32.3 % (37-47); HEMOGLOBIN 11.3 g/dL (12.0-16.0); IG# 0.02 K/uL (0.00-0.02); LYMPH % 9.6 %; LYMPH ABS # 1.02 K/uL (1.2-3.4); MEAN CELL VOLUME 90.5 fL (80-100); MEAN CORPUSCULAR HEMOGLOBIN 31.7 pg (25-34); MEAN PLATELET VOLUME 10.2 fL (7.4-10.4); MONO % 6.6 %; NEUT % 82.9 %; NEUT ABS # 8.77 K/uL (1.4-6.5); PLATELET COUNT 263 K/uL (130-400); RED CELL DISTRIBUTION WIDTH CV 11.9 % (11.5-14.5); WHITE BLOOD COUNT 10.58 K/uL (4.8-10.8)
[2017-06-27 09:17] LABS: CALCIUM 8.5 mg/dl (8.5-10.1); CREATININE 0.78 mg/dl (0.60-1.20); POTASSIUM 4.3 mmol/L (3.5-5.1)
--- NOTE | 2017-06-27 11:09 | Progress Note ---
Progress Note Date of Service Jun 27, 2017. Progress Note ID Consult Dictated #[id number] A/P: 1. Left knee effusion -Concerning for lyme, especially with + screen -Change to rocephin and follow culture results -thank you
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
[2017-06-27] MEDS: CEFTRIAXONE SOD INJ 2,000 MG in DEXTROSE 5% 50ML 50 ML IV SCH (12:35)
[2017-06-27 15:09] VITALS: BP 100/58; PULSE 84; TEMP 36.8; O2SAT 98
[2017-06-27] MEDS: DAPTOMYCIN IV SCH (19:41)
[2017-06-27] MEDS ORDERED: VANCOMYCIN TROUGH ONE (21:30)
[2017-06-27 22:58] VITALS: BP 96/57; PULSE 93; TEMP 37.1; O2SAT 98
[2017-06-28] MEDS: ACETAMINOPHEN 325 MG TAB PO PRN ×2 (00:36→07:09)
[2017-06-28] MEDS: NSS + 20MEQ KCL 1000ML 1,000 ML IV SCH ×2 (05:34→18:50)
[2017-06-28 06:15] LABS: BASO % 0.4 %; BASO ABS # 0.03 K/uL (0-0.2); EOS % 0.9 %; EOS ABS # 0.07 K/uL (0-0.5); HEMATOCRIT 31.3 % (37-47); HEMOGLOBIN 10.6 g/dL (12.0-16.0); IG# 0.01 K/uL (0.00-0.02); LYMPH % 19.6 %; MEAN CELL VOLUME 89.4 fL (80-100); MEAN CORPUSCULAR HEMOGLOBIN 30.3 pg (25-34); MEAN CORPUSCULAR HGB CONC 33.9 g/dl (32-36); MEAN PLATELET VOLUME 9.3 fL (7.4-10.4); MONO % 12.9 %; MONO ABS # 0.99 K/uL (0.11-0.59); NEUT % 66.1 %; NEUT ABS # 5.05 K/uL (1.4-6.5); PLATELET COUNT 278 K/uL (130-400); RED CELL DISTRIBUTION WIDTH CV 11.9 % (11.5-14.5); RED CELL DISTRIBUTION WIDTH SD 38.8 fL (36.4-46.3); WHITE BLOOD COUNT 7.65 K/uL (4.8-10.8)
[2017-06-28 07:00] LABS: CALCIUM 8.5 mg/dl (8.5-10.1); CREATININE 0.65 mg/dl (0.60-1.20)
[2017-06-28] MEDS: SERTRALINE HCL 50 MG TAB PO SCH (08:25)
[2017-06-28 08:41] VITALS: BP 109/73; PULSE 80; TEMP 36.7; O2SAT 99
[2017-06-28] MEDS: CEFTRIAXONE SOD INJ 2,000 MG in DEXTROSE 5% 50ML 50 ML IV SCH (11:19)
[2017-06-28 15:32] VITALS: BP 98/63; PULSE 74; TEMP 37; O2SAT 99
[2017-06-28] MEDS: KETOROLAC TROMETHAMINE 15 MG/ML VIAL IV PRN (16:17)
[2017-06-28] MEDS ORDERED: CYCLOBENZAPRINE HCL 5 MG TAB PO PRN (18:30)
[2017-06-28] MEDS ORDERED: CYCLOBENZAPRINE HCL 5 MG TAB PO ONE (18:45)
--- NOTE | 2017-06-28 19:48 | DIAGNOSTIC IMAGING REPORT ---
L VENOUS DOPP LOWER EXT UNILAT CLINICAL HISTORY: r/o dvt pain TECHNIQUE: Ultrasound COMPARISON STUDY: 06/26/2017 FINDINGS: Study remains negative for deep venous fibrosis. There is a complex cystic area posterior to the medial knee measuring 4.5 x 2.0 cm. An intramuscular hematoma is again noted and appears to be similar compared to the prior study. A complex cystic collection anterior to the knee remains similar. IMPRESSION: 1. Study remains negative for deep venous thrombosis. 2. Several scattered hematomas and/or cystic regions generally similar compared to the prior exam. The above report was generated using voice recognition software. It may contain grammatical, syntax or spelling errors. Electronically signed by: Willis Tanner M.D. 06/28/2017 7:46 PM Dictated Date/Time: 06/28/2017 7:44 PM
[2017-06-28] MEDS: DAPTOMYCIN IV SCH (20:01)
[2017-06-28 23:00] VITALS: BP 97/59; PULSE 78; TEMP 37.1; O2SAT 98
[2017-06-29] MEDS: NSS + 20MEQ KCL 1000ML 1,000 ML IV SCH (05:15)
[2017-06-29 05:52] LABS: BASO % 0.1 %; BASO ABS # 0.01 K/uL (0-0.2); EOS % 1.5 %; HEMOGLOBIN 10.2 g/dL (12.0-16.0); IG# 0.01 K/uL (0.00-0.02); LYMPH % 21.2 %; LYMPH ABS # 1.45 K/uL (1.2-3.4); MEAN CELL VOLUME 89.3 fL (80-100); MEAN CORPUSCULAR HEMOGLOBIN 30.4 pg (25-34); MEAN PLATELET VOLUME 9.5 fL (7.4-10.4); MONO % 15.3 %; MONO ABS # 1.05 K/uL (0.11-0.59); NEUT % 61.8 %; NEUT ABS # 4.23 K/uL (1.4-6.5); PLATELET COUNT 267 K/uL (130-400); RED CELL DISTRIBUTION WIDTH CV 11.9 % (11.5-14.5); WHITE BLOOD COUNT 6.85 K/uL (4.8-10.8)
[2017-06-29 06:24] LABS: BLOOD UREA NITROGEN 4 mg/dl (7-18); CALCIUM 8.6 mg/dl (8.5-10.1); CARBON DIOXIDE 24 mmol/L (21-32); CREATININE 0.56 mg/dl (0.60-1.20); GLUCOSE 91 mg/dl (70-99); POTASSIUM 3.8 mmol/L (3.5-5.1); SODIUM 139 mmol/L (136-145)
--- NOTE | 2017-06-29 07:00 | Progress Note ---
Subjective Date of Service: Jun 29, 2017. Subjective afebrile, tolerating abx. wound culture with gpc, final pending, blood cultures negative, lyme pcr/wb pending. Problem List Medical Problems: (1) Closed head injury Status: Acute (2) Concussion Status: Acute (3) Headache Status: Acute (4) Knee effusion, left Status: Acute (5) Neck pain Status: Acute Objective Vital Signs Date Time Temp Pulse Resp B/P (MAP) Pulse Ox O2 Delivery O2 Flow Rate FiO2 06/28/17 23:45 Room Air 06/28/17 23:00 37.1 78 16 97/59 (72) 98 Room Air 06/28/17 15:32 37.0 74 18 98/63 (75) 99 Room Air 06/28/17 15:20 Room Air 06/28/17 08:41 36.7 80 18 109/73 (85) 99 Room Air 06/28/17 07:15 Room Air Laboratory Results Item Value Date Time Gram Stain - Final Resulted 06/26/17 1340 Joint Fluid/Space (Synovial) Knee Left Blood Culture - Preliminary Resulted 06/26/17 0459 Blood NO GROWTH TO DATE. Blood Culture - Preliminary Resulted 06/26/17 0455 Blood NO GROWTH TO DATE. Last 24 Hours Test 06/29/17 05:25 White Blood Count 6.85 K/uL Red Blood Count 3.36 M/uL Hemoglobin 10.2 g/dL Hematocrit 30.0 % Mean Corpuscular Volume 89.3 fL Mean Corpuscular Hemoglobin 30.4 pg Mean Corpuscular Hemoglobin Concent 34.0 g/dl Platelet Count 267 K/uL Mean Platelet Volume 9.5 fL Neutrophils (%) (Auto) 61.8 % Lymphocytes (%) (Auto) 21.2 % Monocytes (%) (Auto) 15.3 % Eosinophils (%) (Auto) 1.5 % Basophils (%) (Auto) 0.1 % Neutrophils # (Auto) 4.23 K/uL Lymphocytes # (Auto) 1.45 K/uL Monocytes # (Auto) 1.05 K/uL Eosinophils # (Auto) 0.10 K/uL Basophils # (Auto) 0.01 K/uL RDW Standard Deviation 39.0 fL RDW Coefficient of Variation 11.9 % Immature Granulocyte % (Auto) 0.1 % Immature Granulocyte # (Auto) 0.01 K/uL Sodium Level 139 mmol/L Potassium Level 3.8 mmol/L Chloride Level 108 mmol/L Carbon Dioxide Level 24 mmol/L Anion Gap 7.0 mmol/L Blood Urea Nitrogen 4 mg/dl Creatinine 0.56 mg/dl Est Creatinine Clear Calc Drug Dose 144.9 ml/min Estimated GFR () > 150.0 Estimated GFR (Non- 135.2 BUN/Creatinine Ratio 7.3 Random Glucose 91 mg/dl Calcium Level 8.6 mg/dl Assessment and Plan (1) Septic arthritis Assessment & Plan: continue abx, await final cultures.
[2017-06-29 07:41] VITALS: BP 97/60; PULSE 60; TEMP 36.9; O2SAT 99
[2017-06-29] MEDS: SERTRALINE HCL 50 MG TAB PO SCH (08:31)
--- NOTE | 2017-06-29 08:56 | Orthopedic Progress Note ---
Orthopedic Progress Note Date of Service Jun 29, 2017. Subjective Reports: feeling well, Denies: chest pain, SOB, nausea / vomiting, light headedness, calf pain Additional Notes: KNEE PAIN IMPROVING. NO PAIN WITH ROM, NO FEVER. GRAM STAIN CAME BACK GRAM + COCCI THIS AM. ALSO SYNOVIAL FLUID LYME PCR DETECTED. Objective calves soft nontender, N/V intact, capillary refill less than 2 sec., A&O x3, toes mobile NO KNEE EFFUSION. NO ERYTHEMA. ROM INTACT WITH MINIMAL PAIN. Date Time Temp Pulse Resp B/P (MAP) Pulse Ox O2 Delivery O2 Flow Rate FiO2 06/29/17 07:41 36.9 60 18 97/60 (72) 99 Room Air 06/28/17 23:45 Room Air 06/28/17 23:00 37.1 78 16 97/59 (72) 98 Room Air 06/28/17 15:32 37.0 74 18 98/63 (75) 99 Room Air 06/28/17 15:20 Room Air Laboratory Results 24 Hours: Test 06/29/17 05:25 White Blood Count 6.85 K/uL Red Blood Count 3.36 M/uL Hemoglobin 10.2 g/dL Hematocrit 30.0 % Mean Corpuscular Volume 89.3 fL Mean Corpuscular Hemoglobin 30.4 pg Mean Corpuscular Hemoglobin Concent 34.0 g/dl Platelet Count 267 K/uL Mean Platelet Volume 9.5 fL Neutrophils (%) (Auto) 61.8 % Lymphocytes (%) (Auto) 21.2 % Monocytes (%) (Auto) 15.3 % Eosinophils (%) (Auto) 1.5 % Basophils (%) (Auto) 0.1 % Neutrophils # (Auto) 4.23 K/uL Lymphocytes # (Auto) 1.45 K/uL Monocytes # (Auto) 1.05 K/uL Eosinophils # (Auto) 0.10 K/uL Basophils # (Auto) 0.01 K/uL Additional Notes: GRAM STAIN Final 06/26/17-1453 RESULT MANY WBCs SEEN NO ORGANISMS SEEN OR AER/HELLEN CULT Preliminary 06/28/17-1432 Organism 1 GRAM POSITIVE COCCI QUANITY RARE SENS SENSITIVITY TO FOLLOW Assessment & Plan Assessment: LEFT KNEE PAIN/EFFUSION- RESOLVING Plan: KNEE PAIN- - GRAM STAIN SHOWING GRAM + COCCI. CONTAMINATE? WILL WAIT ON FINAL CULTURES - NPO FOR TOMORROW PRECAUTION. PATIENT CURRENTLY AFEBRILE AND WITHOUT PAIN - + LYME PCR DETECTED - ID ON BOARD. WILL AWAIT THEIR INPUT. - CONTINUE IV DAPTO AND CEFTRIAXONE FOR NOW
--- NOTE | 2017-06-29 11:06 | Progress Note ---
Medicine Progress Note Date & Time of Visit: Jun 29, 2017 at 11:03. Subjective delayed entry date of service as noted above seen resting in bed, comfortable states pain is improving able to ambulate better no fever/chills denies other symptoms Objective Last 8 Hrs Date Time Temp Pulse Resp B/P (MAP) Pulse Ox O2 Delivery O2 Flow Rate FiO2 06/29/17 08:00 Room Air 06/29/17 07:41 36.9 60 18 97/60 (72) 99 Room Air Physical Exam: General- oriented x 3, not in distress, speaks in sentences with no effort Head- atraumatic Neck- no JVD Lungs- clear breath sounds bilaterally, no rales/wheezes Heart- regular rhythm; no murmur, normal rate Abdomen- normal bowel sounds, soft, nontender Extremities- (+) mild edema, mild warmth,very mild tenderness of the left knee-- > improving no pretibial edema, no calf tenderness; peripheral pulses intact Neuro- alert, oriented x 3;no gross focal deficits Skin- warm & dry Laboratory Results: Last 24 Hours Test 06/29/17 05:25 White Blood Count 6.85 K/uL Red Blood Count 3.36 M/uL Hemoglobin 10.2 g/dL Hematocrit 30.0 % Mean Corpuscular Volume 89.3 fL Mean Corpuscular Hemoglobin 30.4 pg Mean Corpuscular Hemoglobin Concent 34.0 g/dl Platelet Count 267 K/uL Mean Platelet Volume 9.5 fL Neutrophils (%) (Auto) 61.8 % Lymphocytes (%) (Auto) 21.2 % Monocytes (%) (Auto) 15.3 % Eosinophils (%) (Auto) 1.5 % Basophils (%) (Auto) 0.1 % Neutrophils # (Auto) 4.23 K/uL Lymphocytes # (Auto) 1.45 K/uL Monocytes # (Auto) 1.05 K/uL Eosinophils # (Auto) 0.10 K/uL Basophils # (Auto) 0.01 K/uL RDW Standard Deviation 39.0 fL RDW Coefficient of Variation 11.9 % Immature Granulocyte % (Auto) 0.1 % Immature Granulocyte # (Auto) 0.01 K/uL Sodium Level 139 mmol/L Potassium Level 3.8 mmol/L Chloride Level 108 mmol/L Carbon Dioxide Level 24 mmol/L Anion Gap 7.0 mmol/L Blood Urea Nitrogen 4 mg/dl Creatinine 0.56 mg/dl Est Creatinine Clear Calc Drug Dose 144.9 ml/min Estimated GFR () > 150.0 Estimated GFR (Non- 135.2 BUN/Creatinine Ratio 7.3 Random Glucose 91 mg/dl Calcium Level 8.6 mg/dl Assessment & Plan 21 year old female presenting with progressive left knee swelling... POSSIBLE LEFT KNEE SEPTIC ARTHRITIS s/p Arthrocentesis 06/26/17 synovial fluid studies showing possible septic arthritis lyme pending afebrile clinically improving on Dapto + Ceftriaxone IV ff up cultures ID and Ortho on board PRURITUS patient received Vanco, Zosyn, Morphine prior to developing pruritus resolved with Benadryl and discontinuing above medications monitor discussed with patient and her mother plan of care at length they are agreeable and comfortable with plan of care all questions answered Dispo pending anticipate d/c home IV vs. PO antibiotics per ID Current Inpatient Medications: Current Inpatient Medications Medications (Trade) Dose Ordered Sig/Abelino Route Start Time Stop Time Status Last Admin Dose Admin Acetaminophen (Tylenol Tab) 325 mg Q4H PRN PO 06/26/17 05:15 07/26/17 05:14 06/28/17 07:09 325 MG Miscellaneous (Iv Fluids Completed) 1 ea PRN PRN N/A 06/26/17 05:30 06/26/18 05:29 Gadobutrol (Gadavist) 6 mmol UD PRN IV 06/26/17 09:15 06/30/17 09:14 Sertraline HCl (Zoloft Tab) 50 mg DAILY PO 06/27/17 09:00 07/27/17 08:59 06/29/17 08:31 50 MG Diphenhydramine HCl (Benadryl Inj) 12.5 mg Q6H PRN IV 06/26/17 19:30 07/26/17 19:29 Ketorolac Tromethamine (Toradol Inj) 15 mg Q6H PRN IV 06/26/17 19:45 07/01/17 19:44 06/28/17 16:17 15 MG Acetaminophen 650 mg/Empty Bag 65 ml @ 260 mls/hr Q6H PRN IV 06/26/17 19:45 07/26/17 19:44 06/27/17 11:13 260 MLS/HR Daptomycin (Consult) 1 ea UD PRN N/A 06/26/17 20:00 07/26/17 19:59 Daptomycin 380 mg/ Syringe 7.6 ml @ 3.8 mls/min Q24H IV 06/26/17 20:00 08/07/17 19:59 06/28/17 20:01 3.8 MLS/MIN Ondansetron HCl (Zofran Inj) 4 mg Q4H PRN IV 06/26/17 21:15 07/26/17 21:14 06/27/17 10:56 4 MG Ceftriaxone Sodium 2000 mg/ Dextrose 70 ml @ 100 mls/hr Q24H IV 06/27/17 11:30 08/08/17 11:29 06/28/17 11:19 100 MLS/HR Cyclobenzaprine HCl (Flexeril Tab) 5 mg BID PRN PO 06/28/17 18:30 07/28/17 18:29
--- NOTE | 2017-06-29 11:15 | Progress Note ---
Medicine Progress Note Date & Time of Visit: Jun 29, 2017 at 11:06. Subjective seen resting in bed, comfortable her mother was at the bedside was having calf pain yesterday, Doppler US : no DVT today, patient states left knee pain is about the same as yesterday no fever/chills headache resolving no other symptoms Objective Last 8 Hrs Date Time Temp Pulse Resp B/P (MAP) Pulse Ox O2 Delivery O2 Flow Rate FiO2 06/29/17 08:00 Room Air 06/29/17 07:41 36.9 60 18 97/60 (72) 99 Room Air Physical Exam: General- oriented x 3, not in distress, speaks in sentences with no effort Head- atraumatic Neck- no JVD Lungs- clear breath sounds bilaterally, no rales/wheezes Heart- regular rhythm; no murmur, normal rate Abdomen- normal bowel sounds, soft, nontender Extremities- (+) mild edema, mild warmth, no tenderness of the left knee no pretibial edema, no calf tenderness; peripheral pulses intact Neuro- alert, oriented x 3;no gross focal deficits Skin- warm & dry Laboratory Results: Last 24 Hours Test 06/29/17 05:25 White Blood Count 6.85 K/uL Red Blood Count 3.36 M/uL Hemoglobin 10.2 g/dL Hematocrit 30.0 % Mean Corpuscular Volume 89.3 fL Mean Corpuscular Hemoglobin 30.4 pg Mean Corpuscular Hemoglobin Concent 34.0 g/dl Platelet Count 267 K/uL Mean Platelet Volume 9.5 fL Neutrophils (%) (Auto) 61.8 % Lymphocytes (%) (Auto) 21.2 % Monocytes (%) (Auto) 15.3 % Eosinophils (%) (Auto) 1.5 % Basophils (%) (Auto) 0.1 % Neutrophils # (Auto) 4.23 K/uL Lymphocytes # (Auto) 1.45 K/uL Monocytes # (Auto) 1.05 K/uL Eosinophils # (Auto) 0.10 K/uL Basophils # (Auto) 0.01 K/uL RDW Standard Deviation 39.0 fL RDW Coefficient of Variation 11.9 % Immature Granulocyte % (Auto) 0.1 % Immature Granulocyte # (Auto) 0.01 K/uL Sodium Level 139 mmol/L Potassium Level 3.8 mmol/L Chloride Level 108 mmol/L Carbon Dioxide Level 24 mmol/L Anion Gap 7.0 mmol/L Blood Urea Nitrogen 4 mg/dl Creatinine 0.56 mg/dl Est Creatinine Clear Calc Drug Dose 144.9 ml/min Estimated GFR () > 150.0 Estimated GFR (Non- 135.2 BUN/Creatinine Ratio 7.3 Random Glucose 91 mg/dl Calcium Level 8.6 mg/dl Assessment & Plan 21 year old female presenting with progressive left knee swelling... POSSIBLE LEFT KNEE SEPTIC ARTHRITIS VS. LYME ARTHRITIS s/p Arthrocentesis 06/26/17 synovial fluid lyme DNA (+) synovial fluid culture (+) Staph, rare afebrile clinically improving on Dapto + Ceftriaxone IV ff up cultures ID and Ortho on board PRURITUS patient received Vanco, Zosyn, Morphine prior to developing pruritus resolved with Benadryl and discontinuing above medications monitor discussed with patient and her mother plan of care at length they are agreeable and comfortable with plan of care all questions answered Dispo pending anticipate d/c home IV vs. PO antibiotics per ID Current Inpatient Medications: Current Inpatient Medications Medications (Trade) Dose Ordered Sig/Abelino Route Start Time Stop Time Status Last Admin Dose Admin Acetaminophen (Tylenol Tab) 325 mg Q4H PRN PO 06/26/17 05:15 07/26/17 05:14 06/28/17 07:09 325 MG Miscellaneous (Iv Fluids Completed) 1 ea PRN PRN N/A 06/26/17 05:30 06/26/18 05:29 Gadobutrol (Gadavist) 6 mmol UD PRN IV 06/26/17 09:15 06/30/17 09:14 Sertraline HCl (Zoloft Tab) 50 mg DAILY PO 06/27/17 09:00 07/27/17 08:59 06/29/17 08:31 50 MG Diphenhydramine HCl (Benadryl Inj) 12.5 mg Q6H PRN IV 06/26/17 19:30 07/26/17 19:29 Ketorolac Tromethamine (Toradol Inj) 15 mg Q6H PRN IV 06/26/17 19:45 07/01/17 19:44 06/28/17 16:17 15 MG Acetaminophen 650 mg/Empty Bag 65 ml @ 260 mls/hr Q6H PRN IV 06/26/17 19:45 07/26/17 19:44 06/27/17 11:13 260 MLS/HR Daptomycin (Consult) 1 ea UD PRN N/A 06/26/17 20:00 07/26/17 19:59 Daptomycin 380 mg/ Syringe 7.6 ml @ 3.8 mls/min Q24H IV 06/26/17 20:00 08/07/17 19:59 06/28/17 20:01 3.8 MLS/MIN Ondansetron HCl (Zofran Inj) 4 mg Q4H PRN IV 06/26/17 21:15 07/26/17 21:14 06/27/17 10:56 4 MG Ceftriaxone Sodium 2000 mg/ Dextrose 70 ml @ 100 mls/hr Q24H IV 06/27/17 11:30 08/08/17 11:29 06/28/17 11:19 100 MLS/HR Cyclobenzaprine HCl (Flexeril Tab) 5 mg BID PRN PO 06/28/17 18:30 07/28/17 18:29
[2017-06-29] MEDS: CEFTRIAXONE SOD INJ 2,000 MG in DEXTROSE 5% 50ML 50 ML IV SCH (11:32)
[2017-06-29 16:08] VITALS: BP 103/62; PULSE 76; TEMP 36.6; O2SAT 99
[2017-06-29] MEDS: DAPTOMYCIN IV SCH (19:45)
[2017-06-29 23:07] VITALS: BP 100/64; PULSE 78; TEMP 36.6; O2SAT 99
[2017-06-30] VITALS (7 sets, daily range): BP systolic 91–123; BP diastolic 51–81; PULSE 58–98; TEMP 36.3–36.9; O2SAT 98–100
[2017-06-30 06:03] LABS: BASO % 0.6 %; BASO ABS # 0.04 K/uL (0-0.2); EOS % 1.8 %; EOS ABS # 0.13 K/uL (0-0.5); HEMOGLOBIN 10.7 g/dL (12.0-16.0); IG# 0.01 K/uL (0.00-0.02); LYMPH % 20.4 %; LYMPH ABS # 1.47 K/uL (1.2-3.4); MEAN CELL VOLUME 88.8 fL (80-100); MEAN CORPUSCULAR HEMOGLOBIN 30.7 pg (25-34); MEAN CORPUSCULAR HGB CONC 34.5 g/dl (32-36); MEAN PLATELET VOLUME 9.4 fL (7.4-10.4); MONO % 12.3 %; MONO ABS # 0.89 K/uL (0.11-0.59); NEUT % 64.8 %; NEUT ABS # 4.68 K/uL (1.4-6.5); PLATELET COUNT 300 K/uL (130-400); RED CELL DISTRIBUTION WIDTH CV 11.7 % (11.5-14.5); RED CELL DISTRIBUTION WIDTH SD 37.8 fL (36.4-46.3); WHITE BLOOD COUNT 7.22 K/uL (4.8-10.8)
[2017-06-30 06:38] LABS: BLOOD UREA NITROGEN 6 mg/dl (7-18); CALCIUM 8.6 mg/dl (8.5-10.1); CARBON DIOXIDE 23 mmol/L (21-32); CREATININE 0.59 mg/dl (0.60-1.20); GLUCOSE 91 mg/dl (70-99); POTASSIUM 3.6 mmol/L (3.5-5.1); SODIUM 139 mmol/L (136-145)
--- NOTE | 2017-06-30 07:14 | Orthopedic Progress Note ---
Orthopedic Progress Note Date of Service Jun 30, 2017. Subjective Additional Notes: Patient states she is feeling somewhat better still with some pain on the left knee. Objective calves soft nontender, N/V intact Small to moderate effusion still present fairly warm to touch but no erythema and some pain with range of motion of the left knee. No overt gross infection is noted. Date Time Temp Pulse Resp B/P (MAP) Pulse Ox O2 Delivery O2 Flow Rate FiO2 06/29/17 23:30 Room Air 06/29/17 23:07 36.6 78 14 100/64 (76) 99 Room Air 06/29/17 16:08 36.6 76 18 103/62 (76) 99 Room Air 06/29/17 16:00 Room Air 06/29/17 08:00 Room Air 06/29/17 07:41 36.9 60 18 97/60 (72) 99 Room Air Laboratory Results 24 Hours: Test 06/30/17 05:46 White Blood Count 7.22 K/uL Red Blood Count 3.49 M/uL Hemoglobin 10.7 g/dL Hematocrit 31.0 % Mean Corpuscular Volume 88.8 fL Mean Corpuscular Hemoglobin 30.7 pg Mean Corpuscular Hemoglobin Concent 34.5 g/dl Platelet Count 300 K/uL Mean Platelet Volume 9.4 fL Neutrophils (%) (Auto) 64.8 % Lymphocytes (%) (Auto) 20.4 % Monocytes (%) (Auto) 12.3 % Eosinophils (%) (Auto) 1.8 % Basophils (%) (Auto) 0.6 % Neutrophils # (Auto) 4.68 K/uL Lymphocytes # (Auto) 1.47 K/uL Monocytes # (Auto) 0.89 K/uL Eosinophils # (Auto) 0.13 K/uL Basophils # (Auto) 0.04 K/uL Assessment & Plan Assessment: LEFT KNEE PAIN/EFFUSION- RESOLVING Plan: KNEE PAIN- Had a long discussion with the patient regarding her diagnosis and treatment plan. She appears to be diagnosed with Lyme disease which obviously can cause pain in the left knee as well as swelling but unfortunately she did have some staph growing whether or not this is a contaminant or not is difficult to tell therefore the best route of action would be to just perform an arthroscopic I&D because if so infected could be destructive and there is minimal harm or downside to doing arthroscopic irrigation and debridement. She understands that she was very happy with the conversation a willing to proceed with the operation today. I did discuss all the risk of the surgery with the patient in entirety as well as the benefits and she signed a consent this morning with me in the room as well as the nurse who witnessed. We will continue with antibiotics as per infectious disease and I would probably recommend depending on the sensitivities of this Staph, will defer to infectious disease for IV antibiotics and length of them.
[2017-06-30] MEDS: SERTRALINE HCL 50 MG TAB PO SCH (08:50)
--- NOTE | 2017-06-30 11:22 | Progress Note ---
Subjective Date of Service: Jun 30, 2017. Subjective Pt evaluation today including: conversation w/ patient, physical exam, chart review, lab review pt for OR today, staph species found on aspirate culture. lyme pcr + remains on ctx and dapto. blood cultures negative. afebrile. no pain, well controlled. able to walk. still with some swelling. no f/c. no n/v/d/abd pain. all remaining ros reviewed and are negative. Problem List Medical Problems: (1) Closed head injury Status: Acute (2) Concussion Status: Acute (3) Headache Status: Acute (4) Knee effusion, left Status: Acute (5) Neck pain Status: Acute Objective Vital Signs Date Time Temp Pulse Resp B/P (MAP) Pulse Ox O2 Delivery O2 Flow Rate FiO2 06/30/17 08:30 36.9 85 18 110/61 (77) 99 Room Air 06/30/17 08:25 Room Air 06/29/17 23:30 Room Air 06/29/17 23:07 36.6 78 14 100/64 (76) 99 Room Air 06/29/17 16:08 36.6 76 18 103/62 (76) 99 Room Air 06/29/17 16:00 Room Air Physical Exam General Appearance: WD/WN, no apparent distress Eyes: normal inspection, EOMI Neck: supple Respiratory/Chest: lungs clear, normal breath sounds, no respiratory distress Cardiovascular: regular rate, rhythm, no edema Abdomen: soft Extremities: non-tender, no pedal edema Neurologic/Psychiatric: alert, oriented x 3 Skin: normal color Comments: knee with no erythema or warmth, non tender Laboratory Results Item Value Date Time Gram Stain - Final Resulted 06/26/17 1340 Joint Fluid/Space (Synovial) Knee Left Blood Culture - Preliminary Resulted 06/26/17 0459 Blood NO GROWTH TO DATE. Blood Culture - Preliminary Resulted 06/26/17 0455 Blood NO GROWTH TO DATE. Body Fluid Lyme Disease DNA (PCR) Detected A 06/26/17 1340 Last 24 Hours Test 06/30/17 05:46 06/30/17 11:15 White Blood Count 7.22 K/uL Red Blood Count 3.49 M/uL Hemoglobin 10.7 g/dL Hematocrit 31.0 % Mean Corpuscular Volume 88.8 fL Mean Corpuscular Hemoglobin 30.7 pg Mean Corpuscular Hemoglobin Concent 34.5 g/dl Platelet Count 300 K/uL Mean Platelet Volume 9.4 fL Neutrophils (%) (Auto) 64.8 % Lymphocytes (%) (Auto) 20.4 % Monocytes (%) (Auto) 12.3 % Eosinophils (%) (Auto) 1.8 % Basophils (%) (Auto) 0.6 % Neutrophils # (Auto) 4.68 K/uL Lymphocytes # (Auto) 1.47 K/uL Monocytes # (Auto) 0.89 K/uL Eosinophils # (Auto) 0.13 K/uL Basophils # (Auto) 0.04 K/uL RDW Standard Deviation 37.8 fL RDW Coefficient of Variation 11.7 % Immature Granulocyte % (Auto) 0.1 % Immature Granulocyte # (Auto) 0.01 K/uL Sodium Level 139 mmol/L Potassium Level 3.6 mmol/L Chloride Level 106 mmol/L Carbon Dioxide Level 23 mmol/L Anion Gap 10.0 mmol/L Blood Urea Nitrogen 6 mg/dl Creatinine 0.59 mg/dl Est Creatinine Clear Calc Drug Dose 137.5 ml/min Estimated GFR () > 150.0 Estimated GFR (Non- 132.9 BUN/Creatinine Ratio 9.3 Random Glucose 91 mg/dl Calcium Level 8.6 mg/dl Assessment and Plan (1) Septic arthritis Assessment & Plan: continue abx, await final cultures. OR findings.
[2017-06-30] MEDS ORDERED: DEXAMETHASONE SOD INJ 4 MG/ML VIAL ONE (11:37)
[2017-06-30] MEDS ORDERED: PROPOFOL IV EMULSION 10 MG/ML 20 ML VIAL IV ONE (11:37)
[2017-06-30] MEDS ORDERED: FENTANYL CITRATE INJ 50 MCG/1 ML 2 ML VIAL ONE ×3 (11:37→13:28)
[2017-06-30] MEDS ORDERED: MIDAZOLAM HCL 1 MG/ML 2ML VIAL ONE (11:37)
[2017-06-30] MEDS ORDERED: ONDANSETRON INJ 2 MG/ML 2 ML VIAL ONE (11:37)
[2017-06-30] MEDS ORDERED: LIDOCAINE HCL 2% 2 ML VIAL (20MG/ML) ONE (11:37)
[2017-06-30] MEDS: CEFTRIAXONE SOD INJ 2,000 MG in DEXTROSE 5% 50ML 50 ML IV SCH (12:22)
[2017-06-30] MEDS ORDERED: SCOPOLAMINE 1.5 MG TDSY TD ONE (12:30)
[2017-06-30] MEDS ORDERED: BACITRACIN 50000 UNIT VIAL ONE (12:33)
[2017-06-30] MEDS ORDERED: BUPIVACAINE 0.25% 30 ML VIAL ONE (12:38)
[2017-06-30] MEDS ORDERED: KETOROLAC TROMETHAMINE 30 MG/ML VIAL ONE (12:55)
--- NOTE | 2017-06-30 13:10 | [facility] Operative Report ---
Operative Report Operative Date Jun 30, 2017. Pre-Operative Diagnosis Septic arthritis left knee Post-Operative Diagnosis Same Procedure(s) Performed Arthroscopic irrigation and debridement left knee with 6 L of saline solution with bacitracin. Surgeon Dale Fowler D.O. Estimated Blood Loss 5 cc Findings Gross purulence left knee Drains None Anesthesia Type General Complication(s) none Disposition no Recovery Room / PACU Description of Procedure pleasant female who has been having left knee pain swelling for a few days now. Came the emergency room had an aspiration of her left knee performed and found to have Lyme's disease as well as staph growing in her left knee. We were not sure whether or not she actually had a staph infection patient really had no fevers or chills no redness and a small to moderate effusion but regardless because there was some type of staph growing we went ahead and did the most prudent thing which is a do a prompt irrigation and debridement arthroscopically of the left knee. Patient was in complete agreement with the diagnosis and treatment plan and very happy to proceed with the operation. Patient brought to the operating room probably identified by myself anesthesia and nursing staff she was given a general anesthetic and intubated without difficulty. Placed on the operating room table in a supine position internal was applied left upper thigh the left legs were prepped and draped in standard orthopedic fashion. The main standard arthroscopic portals the camera was inserted and upon visual inspection I could easily see the cloudy fluid which appeared to be purulent in nature. Then placed an outflow portal and then with use of a multiple rose I performed debridement of the entire knee medial lateral gutters as well as suprapatellar pouch and debrided and irrigated with approximately 6 L of saline solution with bacitracin. 2 pictures were taken throughout the procedure scope was then removed closed the portals with nylon sutures, sterile dressings were applied and patient taken recovery room in stable condition. I attest to the content of the Intraoperative Record and any orders documented therein. Any exceptions are noted below.
[2017-06-30] MEDS ORDERED: ATROPINE SULFATE 0.1 MG/ML 5ML SYR IV PRN (13:45)
[2017-06-30] MEDS ORDERED: EpHEDrine SULFATE INJ 50 MG/ML AMP IV PRN (13:45)
[2017-06-30] MEDS ORDERED: ONDANSETRON INJ 2 MG/ML 2 ML VIAL IV PRN (13:45)
[2017-06-30] MEDS ORDERED: FENTANYL CITRATE INJ 50 MCG/1 ML 2 ML VIAL IV PRN (13:45)
--- NOTE | 2017-06-30 14:04 | Anesthesiology Progress Note ---
Anesthesia Post Op Note Date & Time Jun 30, 2017 at 13:44 Vital Signs Pain Intensity: 4 Vital Signs Past 12 Hours Date Time Temp Pulse Resp B/P (MAP) Pulse Ox O2 Delivery O2 Flow Rate FiO2 06/30/17 13:37 68 13 06/30/17 13:37 67 13 99/60 100 06/30/17 13:32 78 10 98/56 100 06/30/17 13:32 70 10 06/30/17 13:27 63 21 06/30/17 13:27 59 21 100 06/30/17 13:26 106/58 06/30/17 13:22 76 15 06/30/17 13:22 81 15 100 06/30/17 13:21 101/57 06/30/17 13:17 68 14 06/30/17 13:17 65 14 100 06/30/17 13:16 99/55 06/30/17 13:14 102/56 06/30/17 12:13 36.3 70 16 102/56 (73) 100 10 06/30/17 08:30 36.9 85 18 110/61 (77) 99 Room Air 06/30/17 08:25 Room Air Notes Mental Status: alert / awake / arousable, participated in evaluation Pt Amnestic to Procedure: Yes Nausea / Vomiting: adequately controlled Pain: adequately controlled Airway Patency, RR, SpO2: stable & adequate BP & HR: stable & adequate Hydration State: stable & adequate Anesthetic Complications: no major complications apparent
[2017-06-30] MEDS: KETOROLAC TROMETHAMINE 15 MG/ML VIAL IV PRN (15:10)
[2017-06-30] MEDS ORDERED: NURSING VERBAL MED ORDER ONE (15:45)
--- NOTE | 2017-06-30 15:55 | Progress Note ---
Medicine Progress Note Date & Time of Visit: Jun 30, 2017 at 15:47. Subjective s/p I&D Left knee resting in bed, mother at bedside patient is tearful, flat affect inquired what is her main symptom, patient refused to answer states left knee pain is about 9/10 no headache, chest pain, dyspnea no other symptoms Objective Last 8 Hrs Date Time Temp Pulse Resp B/P (MAP) Pulse Ox O2 Delivery O2 Flow Rate FiO2 06/30/17 15:20 36.3 66 17 105/65 (78) 99 Room Air 06/30/17 15:06 36.6 98 18 123/81 (95) 99 Room Air 06/30/17 14:50 Nasal Cannula 2.0 06/30/17 14:20 36.3 58 16 100/58 (72) 100 Nasal Cannula 2.0 06/30/17 14:20 100 Nasal Cannula 2.0 06/30/17 14:11 54 14 110/63 100 06/30/17 14:11 54 14 06/30/17 14:06 67 16 06/30/17 14:06 73 16 112/60 100 06/30/17 14:05 54 15 100 06/30/17 14:05 56 15 06/30/17 14:01 114/73 06/30/17 14:00 63 16 06/30/17 14:00 77 16 100 06/30/17 13:57 93/67 06/30/17 13:55 70 14 98 06/30/17 13:55 75 14 06/30/17 13:51 104/68 06/30/17 13:50 58 10 100 06/30/17 13:50 54 10 06/30/17 13:49 53 15 06/30/17 13:49 53 15 100 06/30/17 13:46 113/57 06/30/17 13:45 36.7 59 16 113/57 100 Nasal Cannula 10 06/30/17 13:44 60 21 06/30/17 13:44 55 21 100 06/30/17 13:43 68 10 06/30/17 13:43 78 10 99 06/30/17 13:41 118/67 06/30/17 13:38 72 16 06/30/17 13:38 79 16 100 06/30/17 13:37 68 13 06/30/17 13:37 67 13 99/60 100 06/30/17 13:32 78 10 98/56 100 06/30/17 13:32 70 10 06/30/17 13:27 63 21 06/30/17 13:27 59 21 100 06/30/17 13:26 106/58 06/30/17 13:22 76 15 06/30/17 13:22 81 15 100 06/30/17 13:21 101/57 06/30/17 13:17 68 14 06/30/17 13:17 65 14 100 06/30/17 13:16 99/55 06/30/17 13:14 102/56 06/30/17 12:13 36.3 70 16 102/56 (73) 100 10 06/30/17 08:30 36.9 85 18 110/61 (77) 99 Room Air 06/30/17 08:25 Room Air Physical Exam: General- oriented x 3, not in distress, speaks in sentences with no effort Head- atraumatic Neck- no JVD Lungs- clear breath sounds bilaterally, no rales/wheezes Heart- regular rhythm; no murmur, normal rate Abdomen- normal bowel sounds, soft, nontender Extremities- left leg with heavy dressing in place Neuro- alert, oriented x 3;no gross focal deficits Skin- warm & dry Laboratory Results: Last 24 Hours Test 06/30/17 05:46 06/30/17 11:27 White Blood Count 7.22 K/uL Red Blood Count 3.49 M/uL Hemoglobin 10.7 g/dL Hematocrit 31.0 % Mean Corpuscular Volume 88.8 fL Mean Corpuscular Hemoglobin 30.7 pg Mean Corpuscular Hemoglobin Concent 34.5 g/dl Platelet Count 300 K/uL Mean Platelet Volume 9.4 fL Neutrophils (%) (Auto) 64.8 % Lymphocytes (%) (Auto) 20.4 % Monocytes (%) (Auto) 12.3 % Eosinophils (%) (Auto) 1.8 % Basophils (%) (Auto) 0.6 % Neutrophils # (Auto) 4.68 K/uL Lymphocytes # (Auto) 1.47 K/uL Monocytes # (Auto) 0.89 K/uL Eosinophils # (Auto) 0.13 K/uL Basophils # (Auto) 0.04 K/uL RDW Standard Deviation 37.8 fL RDW Coefficient of Variation 11.7 % Immature Granulocyte % (Auto) 0.1 % Immature Granulocyte # (Auto) 0.01 K/uL Sodium Level 139 mmol/L Potassium Level 3.6 mmol/L Chloride Level 106 mmol/L Carbon Dioxide Level 23 mmol/L Anion Gap 10.0 mmol/L Blood Urea Nitrogen 6 mg/dl Creatinine 0.59 mg/dl Est Creatinine Clear Calc Drug Dose 137.5 ml/min Estimated GFR () > 150.0 Estimated GFR (Non- 132.9 BUN/Creatinine Ratio 9.3 Random Glucose 91 mg/dl Calcium Level 8.6 mg/dl Human Chorionic Gonadotropin, Qual NEG Assessment & Plan 21 year old female presenting with progressive left knee swelling... POSSIBLE LEFT KNEE SEPTIC ARTHRITIS VS. LYME ARTHRITIS s/p Arthrocentesis 06/26/17 synovial fluid (+) lyme DNA synovial fluid culture (+) Staph, rare s/p I&D of the Left Knee Joint 06/30/17 afebrile clinically improving on Dapto + Ceftriaxone IV ff up cultures ID and Ortho on board awaiting further recommendations by ID re: antibiotic regimen may need IV Ceftri via a pICC line x 28 days vs. PO Doxy PRURITUS patient received Vanco, Zosyn, Morphine prior to developing pruritus resolved with Benadryl and discontinuing above medications monitor discussed with patient and her mother plan of care at length they are agreeable and comfortable with plan of care all questions answered Dispo pending anticipate d/c home when cleared by Ortho and ID IV vs. PO antibiotics per ID Current Inpatient Medications: Current Inpatient Medications Medications (Trade) Dose Ordered Sig/Abelino Route Start Time Stop Time Status Last Admin Dose Admin Acetaminophen (Tylenol Tab) 325 mg Q4H PRN PO 06/26/17 05:15 07/26/17 05:14 06/28/17 07:09 325 MG Miscellaneous (Iv Fluids Completed) 1 ea PRN PRN N/A 06/26/17 05:30 06/26/18 05:29 Sertraline HCl (Zoloft Tab) 50 mg DAILY PO 06/27/17 09:00 07/27/17 08:59 06/29/17 08:31 50 MG Diphenhydramine HCl (Benadryl Inj) 12.5 mg Q6H PRN IV 06/26/17 19:30 07/26/17 19:29 Ketorolac Tromethamine (Toradol Inj) 15 mg Q6H PRN IV 06/26/17 19:45 07/01/17 19:44 06/30/17 15:10 15 MG Acetaminophen 650 mg/Empty Bag 65 ml @ 260 mls/hr Q6H PRN IV 06/26/17 19:45 07/26/17 19:44 06/27/17 11:13 260 MLS/HR Daptomycin (Consult) 1 ea UD PRN N/A 06/26/17 20:00 07/26/17 19:59 Daptomycin 380 mg/ Syringe 7.6 ml @ 3.8 mls/min Q24H IV 06/26/17 20:00 08/07/17 19:59 06/29/17 19:45 3.8 MLS/MIN Ondansetron HCl (Zofran Inj) 4 mg Q4H PRN IV 06/26/17 21:15 07/26/17 21:14 06/27/17 10:56 4 MG Ceftriaxone Sodium 2000 mg/ Dextrose 70 ml @ 100 mls/hr Q24H IV 06/27/17 11:30 08/08/17 11:29 06/30/17 12:22 100 MLS/HR Cyclobenzaprine HCl (Flexeril Tab) 5 mg BID PRN PO 06/28/17 18:30 07/28/17 18:29 Fentanyl Citrate (Fentanyl Inj) 25 mcg Q5M PRN IV 06/30/17 13:45 06/30/17 19:00 Ondansetron HCl (Zofran Inj) 4 mg ONE PRN IV 06/30/17 13:45 06/30/17 19:00 Ephedrine Sulfate (EpHEDrine SULFATE INJ) 5 mg Q5M PRN IV 06/30/17 13:45 06/30/17 19:00 Atropine Sulfate (Atropine Sulfate 0.1mg/ml Inj) 0.5 mg Q1M PRN IV 06/30/17 13:45 06/30/17 19:00 Miscellaneous Information (Nursing Verbal Med Order) 1 ea ONE ONCE N/A 06/30/17 15:45 06/30/17 15:46 UNV
[2017-06-30] MEDS ORDERED: OXYCODONE HCL IR 5 MG TAB (IMMEDIATE RELEASE) PO PRN (16:00)
[2017-06-30] MEDS: ACETAMINOPHEN IV 650 MG in EMPTY BAG 0 ML IV SCH (16:43)
[2017-06-30] MEDS ORDERED: ACETAMINOPHEN IV 650 MG in EMPTY BAG 0 ML IV SCH (19:00)
[2017-06-30] MEDS: DAPTOMYCIN IV SCH (19:50)
[2017-07-01 03:05] VITALS: BP 100/56; PULSE 56; TEMP 36.8; O2SAT 99
[2017-07-01 06:05] LABS: BASO % 0.1 %; BASO ABS # 0.01 K/uL (0-0.2); HEMATOCRIT 31.4 % (37-47); HEMOGLOBIN 10.8 g/dL (12.0-16.0); IG# 0.03 K/uL (0.00-0.02); LYMPH % 8.7 %; LYMPH ABS # 1.06 K/uL (1.2-3.4); MEAN CELL VOLUME 88.7 fL (80-100); MEAN CORPUSCULAR HEMOGLOBIN 30.5 pg (25-34); MEAN CORPUSCULAR HGB CONC 34.4 g/dl (32-36); MEAN PLATELET VOLUME 9.6 fL (7.4-10.4); MONO % 8.7 %; MONO ABS # 1.06 K/uL (0.11-0.59); NEUT % 82.3 %; NEUT ABS # 10.01 K/uL (1.4-6.5); PLATELET COUNT 361 K/uL (130-400); RED CELL DISTRIBUTION WIDTH CV 11.7 % (11.5-14.5); RED CELL DISTRIBUTION WIDTH SD 37.8 fL (36.4-46.3); WHITE BLOOD COUNT 12.17 K/uL (4.8-10.8)
[2017-07-01 07:00] LABS: CREATININE 0.67 mg/dl (0.60-1.20); POTASSIUM 4.3 mmol/L (3.5-5.1)
[2017-07-01 07:35] VITALS: BP 103/63; PULSE 61; TEMP 36.6; O2SAT 100
[2017-07-01] MEDS: SERTRALINE HCL 50 MG TAB PO SCH (08:18)
[2017-07-01] MEDS: ACETAMINOPHEN IV 650 MG in EMPTY BAG 0 ML IV SCH ×3 (08:18→15:35)
[2017-07-01] MEDS: CEFTRIAXONE SOD INJ 2,000 MG in DEXTROSE 5% 50ML 50 ML IV SCH (11:29)
--- NOTE | 2017-07-01 11:41 | Progress Note ---
Subjective Date of Service: Jul 01, 2017. Subjective Pt evaluation today including: conversation w/ patient, physical exam, chart review, lab review pt seen in followup, she had washout yesterday, no routine cultures but initial aspirate culture with [facility]wright supervisor. lyme pcr also + remains on ctx and dapto. tolerating well. afebrile. pain controlled. no f/c. no abd pain. remaining ros reviewed and are negative. Problem List Medical Problems: (1) Closed head injury Status: Acute (2) Concussion Status: Acute (3) Headache Status: Acute (4) Knee effusion, left Status: Acute (5) Neck pain Status: Acute Objective Vital Signs Date Time Temp Pulse Resp B/P (MAP) Pulse Ox O2 Delivery O2 Flow Rate FiO2 07/01/17 09:22 Room Air 07/01/17 07:35 36.6 61 16 103/63 (76) 100 Room Air 07/01/17 03:05 36.8 56 16 100/56 (71) 99 Room Air 07/01/17 00:00 Room Air 06/30/17 22:45 36.6 77 16 102/58 (73) 98 Room Air 06/30/17 19:45 Room Air 06/30/17 19:19 36.4 90 16 91/51 (64) 98 Room Air 06/30/17 16:24 36.7 83 17 104/67 (79) 98 Room Air 06/30/17 15:20 36.3 66 17 105/65 (78) 99 Room Air 06/30/17 15:06 36.6 98 18 123/81 (95) 99 Room Air 06/30/17 14:50 Nasal Cannula 2.0 06/30/17 14:20 36.3 58 16 100/58 (72) 100 Nasal Cannula 2.0 06/30/17 14:20 100 Nasal Cannula 2.0 06/30/17 14:11 54 14 110/63 100 06/30/17 14:11 54 14 06/30/17 14:06 67 16 06/30/17 14:06 73 16 112/60 100 06/30/17 14:05 54 15 100 06/30/17 14:05 56 15 06/30/17 14:01 114/73 06/30/17 14:00 63 16 06/30/17 14:00 77 16 100 06/30/17 13:57 93/67 06/30/17 13:55 70 14 98 06/30/17 13:55 75 14 06/30/17 13:51 104/68 06/30/17 13:50 58 10 100 06/30/17 13:50 54 10 06/30/17 13:49 53 15 06/30/17 13:49 53 15 100 06/30/17 13:46 113/57 06/30/17 13:45 36.7 59 16 113/57 100 Nasal Cannula 10 06/30/17 13:44 60 21 06/30/17 13:44 55 21 100 06/30/17 13:43 68 10 06/30/17 13:43 78 10 99 06/30/17 13:41 118/67 06/30/17 13:38 72 16 06/30/17 13:38 79 16 100 06/30/17 13:37 68 13 06/30/17 13:37 67 13 99/60 100 06/30/17 13:32 78 10 98/56 100 06/30/17 13:32 70 10 06/30/17 13:27 63 21 06/30/17 13:27 59 21 100 06/30/17 13:26 106/58 06/30/17 13:22 76 15 06/30/17 13:22 81 15 100 06/30/17 13:21 101/57 06/30/17 13:17 68 14 06/30/17 13:17 65 14 100 06/30/17 13:16 99/55 06/30/17 13:14 102/56 06/30/17 12:13 36.3 70 16 102/56 (73) 100 10 Physical Exam General Appearance: WD/WN, no apparent distress Eyes: normal inspection, EOMI Neck: supple Respiratory/Chest: lungs clear, normal breath sounds, no respiratory distress Cardiovascular: regular rate, rhythm, no edema Abdomen: non tender, soft Extremities: non-tender, no pedal edema Neurologic/Psychiatric: alert, oriented x 3 Skin: normal color Comments: knee dressing c/d/i Laboratory Results Item Value Date Time Gram Stain - Final Complete 06/26/17 1340 Joint Fluid/Space (Synovial) Knee Left Blood Culture - Final Complete 06/26/17 0459 Blood NO GROWTH Blood Culture - Final Complete 06/26/17 0455 Blood NO GROWTH Body Fluid Lyme Disease DNA (PCR) Detected A 06/26/17 1340 Last 24 Hours Test 07/01/17 05:49 White Blood Count 12.17 K/uL Red Blood Count 3.54 M/uL Hemoglobin 10.8 g/dL Hematocrit 31.4 % Mean Corpuscular Volume 88.7 fL Mean Corpuscular Hemoglobin 30.5 pg Mean Corpuscular Hemoglobin Concent 34.4 g/dl Platelet Count 361 K/uL Mean Platelet Volume 9.6 fL Neutrophils (%) (Auto) 82.3 % Lymphocytes (%) (Auto) 8.7 % Monocytes (%) (Auto) 8.7 % Eosinophils (%) (Auto) 0.0 % Basophils (%) (Auto) 0.1 % Neutrophils # (Auto) 10.01 K/uL Lymphocytes # (Auto) 1.06 K/uL Monocytes # (Auto) 1.06 K/uL Eosinophils # (Auto) 0.00 K/uL Basophils # (Auto) 0.01 K/uL RDW Standard Deviation 37.8 fL RDW Coefficient of Variation 11.7 % Immature Granulocyte % (Auto) 0.2 % Immature Granulocyte # (Auto) 0.03 K/uL Sodium Level 138 mmol/L Potassium Level 4.3 mmol/L Chloride Level 105 mmol/L Carbon Dioxide Level 27 mmol/L Anion Gap 5.0 mmol/L Blood Urea Nitrogen 12 mg/dl Creatinine 0.67 mg/dl Est Creatinine Clear Calc Drug Dose 121.1 ml/min Estimated GFR () 147.7 Estimated GFR (Non- 127.4 BUN/Creatinine Ratio 17.1 Random Glucose 113 mg/dl Calcium Level 9.0 mg/dl Assessment and Plan (1) Septic arthritis Assessment & Plan: will change to rocephin only 2 g daily x 6 weeks from OR. will need weekly cbc cmp, esr while on abx. can follow with ID post d/c. ok for d/c from ID standpoint when otherwise stable.
[2017-07-01 12:23] VITALS: BP 109/53; PULSE 74; TEMP 36.7; O2SAT 99
[2017-07-01 12:43] VITALS: BP 109/53; PULSE 74; TEMP 36.7; O2SAT 99
--- NOTE | 2017-07-01 14:06 | Orthopedic Progress Note ---
Orthopedic Progress Note Date of Service Jul 01, 2017. Subjective Post OP Day: 1 Reports: feeling well, Denies: chest pain, SOB, nausea / vomiting, light headedness, calf pain Additional Notes: STATES PAIN IMPROVED. Objective calves soft nontender, N/V intact, capillary refill less than 2 sec., dressing C /D/I, A&O x3, toes mobile Date Time Temp Pulse Resp B/P (MAP) Pulse Ox O2 Delivery O2 Flow Rate FiO2 07/01/17 12:43 36.7 74 16 99 Room Air 07/01/17 12:23 36.7 74 16 109/53 (71) 99 Room Air 07/01/17 09:22 Room Air 07/01/17 07:35 36.6 61 16 103/63 (76) 100 Room Air 07/01/17 03:05 36.8 56 16 100/56 (71) 99 Room Air 07/01/17 00:00 Room Air 06/30/17 22:45 36.6 77 16 102/58 (73) 98 Room Air 06/30/17 19:45 Room Air 06/30/17 19:19 36.4 90 16 91/51 (64) 98 Room Air 06/30/17 16:24 36.7 83 17 104/67 (79) 98 Room Air 06/30/17 15:20 36.3 66 17 105/65 (78) 99 Room Air 06/30/17 15:06 36.6 98 18 123/81 (95) 99 Room Air 06/30/17 14:50 Nasal Cannula 2.0 06/30/17 14:20 36.3 58 16 100/58 (72) 100 Nasal Cannula 2.0 06/30/17 14:20 100 Nasal Cannula 2.0 06/30/17 14:11 54 14 110/63 100 06/30/17 14:11 54 14 06/30/17 14:06 67 16 06/30/17 14:06 73 16 112/60 100 06/30/17 14:05 54 15 100 06/30/17 14:05 56 15 Laboratory Results 24 Hours: Test 07/01/17 05:49 White Blood Count 12.17 K/uL Red Blood Count 3.54 M/uL Hemoglobin 10.8 g/dL Hematocrit 31.4 % Mean Corpuscular Volume 88.7 fL Mean Corpuscular Hemoglobin 30.5 pg Mean Corpuscular Hemoglobin Concent 34.4 g/dl Platelet Count 361 K/uL Mean Platelet Volume 9.6 fL Neutrophils (%) (Auto) 82.3 % Lymphocytes (%) (Auto) 8.7 % Monocytes (%) (Auto) 8.7 % Eosinophils (%) (Auto) 0.0 % Basophils (%) (Auto) 0.1 % Neutrophils # (Auto) 10.01 K/uL Lymphocytes # (Auto) 1.06 K/uL Monocytes # (Auto) 1.06 K/uL Eosinophils # (Auto) 0.00 K/uL Basophils # (Auto) 0.01 K/uL Assessment & Plan Assessment: POD#1 SP ARTHROSCOPIC I&D LEFT KNEE Plan: KNEE PAIN- Had a long discussion with the patient regarding her diagnosis and treatment plan. She appears to be diagnosed with Lyme disease which obviously can cause pain in the left knee as well as swelling but unfortunately she did have some staph growing whether or not this is a contaminant or not is difficult to tell therefore the best route of action would be to just perform an arthroscopic I&D because if so infected could be destructive and there is minimal harm or downside to doing arthroscopic irrigation and debridement. She understands that she was very happy with the conversation a willing to proceed with the operation today. I did discuss all the risk of the surgery with the patient in entirety as well as the benefits and she signed a consent this morning with me in the room as well as the nurse who witnessed. We will continue with antibiotics as per infectious disease and I would probably recommend depending on the sensitivities of this Staph, will defer to infectious disease for IV antibiotics and length of them. DC DRESSING/DRAIN IN AM COAG NEG STAPH- ID ON BOARD, RECOMMENDS IV ROCEPHIN X 6 WEEKS -PICC LINE ORDERED BUT NOT DONE YET ORTHOPEDICALLY STABLE. WILL SIGN OFF -FOLLOW UP WITH DR. ROTHMAN IN 2 WEEKS [phone] -ANTIBIOTICS PER DR. GORDON, FOLLOW UP WITH THEM
--- NOTE | 2017-07-01 14:07 | Discharge Instructions ---
Discharge Instructions Date of Service Jul 01, 2017. Admission Reason for Admission: Left Leg Swelling, Swelling Of Joint Of Left Knee Discharge Discharge Diagnosis / Problem: SP I&D LEFT KNEE Discharge Goals Goal(s): Decrease discomfort, Improve function, Increase independence Activity Recommendations Activity Limitations: per Instructions/Follow-up section Lifting Limitations: no more than 10 pounds Exercise/Sports Limitations: until after follow-up appointment Shower/Bathe: tomorrow Weightbearing Status: Left weightbearing (as tolerated) . Instructions / Follow-Up Instructions / Follow-Up Follow up appointment with your Primary care provider Dr. Rome on 07/03 @ 1 PM Continue IV Rocephin daily for 6 weeks. (case management arranged for the outpatient infusion) ACTIVITY RECOMMENDATIONS: * You may walk on the leg with or without crutches as comfort permits. * Bending of the knee should start at once. * Do not shower for 48 hours following surgery. SPECIAL CARE INSTRUCTIONS: * You may cleanse the skin adjacent to the small wounds with soap and water at the time of the first dressing change. * The application of an ice bag to the front and sides of the knee will decrease swelling and discomfort for the first 48 hours. * The small incisions may be sore and develop bruising. This bruising does not require any special care. SPECIAL PRECAUTIONS: * If you experience unusual pain unrelieved by prescriptions, temperature elevation (100 degrees F. or above) or progressive swelling or bleeding, you should contact our office at for further evaluation. * You may have been prescribed pain medication. If you experience nausea and/or fine skin rash, discontinue this medication and contact our office at for an alternate medication. DRESSING: * Dressing should be comfortable and absorb any leakage of fluid and/or blood. * The dressing may become moist or bloodstained. * Dressing may be removed __ after surgery and bandaids placed over the small surgical incisions. If can be removed sooner if it becomes very soiled or loose. * Bandaids may be used over next several days as needed and can be discontinued when there is not further drainage from the wounds. FOLLOW UP VISIT: If appointment is not already scheduled: Please call [facility] to make a follow-up appointment for your surgery at . DR. ROTHMAN ([place] LOCATION) PICC LINE CARE AND IV ANTIBIOTICS INSTRUCTIONS PER DR. GORDON. Current Hospital Diet Patient's current hospital diet: Regular Diet Discharge Diet Recommended Diet: Regular Diet Procedures Procedures Performed: Left Knee Arthroscopic Incision and Drainage Pending Studies Studies pending at discharge: no Medical Emergencies . Who to Call and When: Medical Emergencies: If at any time you feel your situation is an emergency, please call 911 immediately. . Non-Emergent Contact Non-Emergency issues call your: Surgeon . "Provider Documentation" section prepared by Soledad Evans. .
--- NOTE | 2017-07-01 15:46 | Progress Note ---
Medicine Progress Note Date & Time of Visit: Jul 01, 2017 at 15:31. Subjective Pt was seen and examined Lying in bed with no distress Pt said that her pain is better Pt would like to go home today She ambulated with no significant discomfort Denies any chest pain, palpitation, dizziness and SOB Objective Last 8 Hrs Date Time Temp Pulse Resp B/P (MAP) Pulse Ox O2 Delivery O2 Flow Rate FiO2 07/01/17 12:43 36.7 74 16 99 Room Air 07/01/17 12:23 36.7 74 16 109/53 (71) 99 Room Air 07/01/17 09:22 Room Air 07/01/17 07:35 36.6 61 16 103/63 (76) 100 Room Air Physical Exam: General- no acute distress Head- atraumatic Eyes- PERRL, EOMI ENT- oropharynx clear Neck- supple, no JVD Lungs- clear to auscultation Heart- regular rhythm Abdomen- normal bowel sounds, soft Extremities- no calf tenderness, left knee wrap Neuro- alert, oriented x 3; PERRL, EOMI; no facial palsy Skin- warm & dry Laboratory Results: Last 24 Hours Test 07/01/17 05:49 White Blood Count 12.17 K/uL Red Blood Count 3.54 M/uL Hemoglobin 10.8 g/dL Hematocrit 31.4 % Mean Corpuscular Volume 88.7 fL Mean Corpuscular Hemoglobin 30.5 pg Mean Corpuscular Hemoglobin Concent 34.4 g/dl Platelet Count 361 K/uL Mean Platelet Volume 9.6 fL Neutrophils (%) (Auto) 82.3 % Lymphocytes (%) (Auto) 8.7 % Monocytes (%) (Auto) 8.7 % Eosinophils (%) (Auto) 0.0 % Basophils (%) (Auto) 0.1 % Neutrophils # (Auto) 10.01 K/uL Lymphocytes # (Auto) 1.06 K/uL Monocytes # (Auto) 1.06 K/uL Eosinophils # (Auto) 0.00 K/uL Basophils # (Auto) 0.01 K/uL RDW Standard Deviation 37.8 fL RDW Coefficient of Variation 11.7 % Immature Granulocyte % (Auto) 0.2 % Immature Granulocyte # (Auto) 0.03 K/uL Sodium Level 138 mmol/L Potassium Level 4.3 mmol/L Chloride Level 105 mmol/L Carbon Dioxide Level 27 mmol/L Anion Gap 5.0 mmol/L Blood Urea Nitrogen 12 mg/dl Creatinine 0.67 mg/dl Est Creatinine Clear Calc Drug Dose 121.1 ml/min Estimated GFR () 147.7 Estimated GFR (Non- 127.4 BUN/Creatinine Ratio 17.1 Random Glucose 113 mg/dl Calcium Level 9.0 mg/dl Assessment & Plan 21 year old female presenting with progressive left knee swelling... POSSIBLE LEFT KNEE SEPTIC ARTHRITIS VS. LYME ARTHRITIS s/p Arthrocentesis 06/26/17 synovial fluid (+) lyme DNA synovial fluid culture (+) Staph, rare 07/01 s/p I&D day1 of the Left Knee Joint on Dapto + Ceftriaxone IV ID on board recommended IV Rocephin 2g for 6 weeks Picc line placed Follow up with ortho Pain improved PRURITUS Received Vanco, Zosyn, Morphine prior to developing pruritus Resolved Dispo PICC line planed Will need IV rocephin 2 gm for 6 weeks. Follow up with Ortho as outpatient. Consultants: Ortho ID Current Inpatient Medications: Current Inpatient Medications Medications (Trade) Dose Ordered Sig/Abelino Route Start Time Stop Time Status Last Admin Dose Admin Acetaminophen (Tylenol Tab) 325 mg Q4H PRN PO 06/26/17 05:15 07/26/17 05:14 06/28/17 07:09 325 MG Miscellaneous (Iv Fluids Completed) 1 ea PRN PRN N/A 06/26/17 05:30 06/26/18 05:29 Sertraline HCl (Zoloft Tab) 50 mg DAILY PO 06/27/17 09:00 07/27/17 08:59 07/01/17 08:18 50 MG Diphenhydramine HCl (Benadryl Inj) 12.5 mg Q6H PRN IV 06/26/17 19:30 07/26/17 19:29 Ketorolac Tromethamine (Toradol Inj) 15 mg Q6H PRN IV 06/26/17 19:45 07/01/17 19:44 06/30/17 15:10 15 MG Acetaminophen 650 mg/Empty Bag 65 ml @ 260 mls/hr Q6H PRN IV 06/26/17 19:45 07/26/17 19:44 06/27/17 11:13 260 MLS/HR Daptomycin (Consult) 1 ea UD PRN N/A 06/26/17 20:00 07/26/17 19:59 Daptomycin 380 mg/ Syringe 7.6 ml @ 3.8 mls/min Q24H IV 06/26/17 20:00 08/07/17 19:59 06/30/17 19:50 3.8 MLS/MIN Ondansetron HCl (Zofran Inj) 4 mg Q4H PRN IV 06/26/17 21:15 07/26/17 21:14 06/27/17 10:56 4 MG Ceftriaxone Sodium 2000 mg/ Dextrose 70 ml @ 100 mls/hr Q24H IV 06/27/17 11:30 08/08/17 11:29 07/01/17 11:29 100 MLS/HR Cyclobenzaprine HCl (Flexeril Tab) 5 mg BID PRN PO 06/28/17 18:30 07/28/17 18:29 Oxycodone HCl (Roxicodone Immediate Rel Tab) 5-10 MG Q4H PRN PAIN `... Q4H PRN PO 06/30/17 16:00 07/14/17 15:59 06/30/17 16:24 10 MG Acetaminophen 650 mg/Empty Bag 65 ml @ 260 mls/hr Q8H IV 06/30/17 16:00 07/30/17 15:59 07/01/17 08:18 260 MLS/HR Heparin Sodium (Porcine) (Heparin 10 Unit/ ml 5 ml Flush) 5 ml PRN PRN FLUSH 07/01/17 15:30 07/31/17 15:29
[2017-07-01 15:54] VITALS: BP 104/62; PULSE 65; TEMP 36.6; O2SAT 97
[2017-07-01] MEDS ORDERED: RCPAV1 IV (18:04)
[2017-07-01] MEDS ORDERED: ACET-1047 PO (18:11)
--- NOTE | 2017-07-03 09:01 | Discharge Summary ---
Discharge Summary Date of Service Jul 03, 2017. Discharge Summary Admission Date: Jun 26, 2017 at 15:30 Discharge Date: Jul 01, 2017 Principal Diagnosis: LEFT KNEE SEPTIC ARTHRITIS Secondary Diagnoses/Problems: PRURITUS Procedures: Arthroscopic irrigation and debridement left knee with 6 L of saline solution with bacitracin. Consultations: Ortho ID Medication Reconciliation New Medications: Ceftriaxone Sod (Rocephin) 1 Gm Inj 2 GM IV DAILY for 40 Days, VIAL Acetaminophen (Mapap) 325 Mg Tab 650 MG PO Q8 PRN for Pain or Fever for 5 Days, #30 TAB Continued Medications: Sertraline (Zoloft) 50 Mg Tab 50 MG PO DAILY, TAB Admission Information HPI (per Admitting provider): 21 year old F patient with past medical history of Zoloft 50 mg daily for depression who has had recurrent left lower extremity swelling which started around January 2017 and more recently has been having lower extremity swelling 4 days ago on Friday which started as swelling of the knee. However on presentation to the Emergency room patient with constant, severe, left leg pain which starts from above the left knee and radiates into the calf and appears to have swelling above the left patella and left calf tenderness. Patient having difficulty with bending the knee. Patient also reported to the ED physician that she has had numbness that radiates to her toes however did not have concerns for numbness of the toes when examined by hospitalist physician. Patient denies recent history of trauma and reports that she was hit in the left knee by a softball but that was several years ago. Patient denies heavy lifting activities. In the ED patient had ultrasound of lower extremity that did not show evidence for deep vein thrombosis however there are presence of multiple fluid collections which include differentials for abscess vs hematoma. Patient denies history of fever. She was started on Vancomycin and Ceftriaxone for broad antibiotic coverage and given pain medications. Patient awaiting orthopedic evaluation and placed under observation if hospitalist medicine care. Physical Exam (per Admitting): General Appearance: WD/WN, no apparent distress Head: normocephalic, atraumatic Eyes: normal inspection, EOMI, sclerae normal ENT: normal ENT inspection, TMs normal, pharynx normal Neck: supple, no JVD, trachea midline Respiratory/Chest: chest non-tender, lungs clear, normal breath sounds, no respiratory distress, no accessory muscle use Cardiovascular: regular rate, rhythm, no murmur, normal peripheral pulses Abdomen/GI: normal bowel sounds, non tender, soft, no organomegaly, no pulsatile mass Back: normal inspection, no muscle spasm, normal range of motion Extremities/Musculoskelatal: + pertinent finding (swelling above left patella down the leg with some swelling/tightness of the left calf) Neurologic/Psych: alert, oriented x 3 Skin: normal color, warm/dry, no rash Hospital Course 21 year old female presenting with progressive left knee swelling... POSSIBLE LEFT KNEE SEPTIC ARTHRITIS VS. LYME ARTHRITIS s/p Arthrocentesis 06/26/17 synovial fluid (+) lyme DNA synovial fluid culture (+) Staph, rare 07/01 s/p I&D day1 of the Left Knee Joint on Dapto + Ceftriaxone IV ID on board recommended IV Rocephin 2g for 6 weeks Picc line placed Follow up with ortho Pain improved PRURITUS Received Vanco, Zosyn, Morphine prior to developing pruritus Resolved Dispo PICC line planed Will need IV rocephin 2 gm for 6 weeks. Follow up with Ortho as outpatient. Total time spent on discharge = 35 minutes This includes examination of the patient, discharge planning, medication reconciliation, and communication with other providers. Discharge Instructions Discharge Instructions Date of Service Jul 01, 2017. Admission Reason for Admission: Left Leg Swelling, Swelling Of Joint Of Left Knee Discharge Discharge Diagnosis / Problem: SP I&D LEFT KNEE Discharge Goals Goal(s): Decrease discomfort, Improve function, Increase independence Activity Recommendations Activity Limitations: per Instructions/Follow-up section Lifting Limitations: no more than 10 pounds Exercise/Sports Limitations: until after follow-up appointment Shower/Bathe: tomorrow Weightbearing Status: Left weightbearing (as tolerated) . Instructions / Follow-Up Instructions / Follow-Up Follow up appointment with your Primary care provider Dr. Rome on 07/03 @ 1 PM Continue IV Rocephin daily for 6 weeks. (case management arranged for the outpatient infusion) ACTIVITY RECOMMENDATIONS: * You may walk on the leg with or without crutches as comfort permits. * Bending of the knee should start at once. * Do not shower for 48 hours following surgery. SPECIAL CARE INSTRUCTIONS: * You may cleanse the skin adjacent to the small wounds with soap and water at the time of the first dressing change. * The application of an ice bag to the front and sides of the knee will decrease swelling and discomfort for the first 48 hours. * The small incisions may be sore and develop bruising. This bruising does not require any special care. SPECIAL PRECAUTIONS: * If you experience unusual pain unrelieved by prescriptions, temperature elevation (100 degrees F. or above) or progressive swelling or bleeding, you should contact our office at for further evaluation. * You may have been prescribed pain medication. If you experience nausea and/or fine skin rash, discontinue this medication and contact our office at for an alternate medication. DRESSING: * Dressing should be comfortable and absorb any leakage of fluid and/or blood. * The dressing may become moist or bloodstained. * Dressing may be removed __ after surgery and bandaids placed over the small surgical incisions. If can be removed sooner if it becomes very soiled or loose. * Bandaids may be used over next several days as needed and can be discontinued when there is not further drainage from the wounds. FOLLOW UP VISIT: If appointment is not already scheduled: Please call [facility] to make a follow-up appointment for your surgery at . DR. ROTHMAN ([facility]) PICC LINE CARE AND IV ANTIBIOTICS INSTRUCTIONS PER DR. GORDON. Current Hospital Diet Patient's current hospital diet: Regular Diet Discharge Diet Recommended Diet: Regular Diet Procedures Procedures Performed: Left Knee Arthroscopic Incision and Drainage Pending Studies Studies pending at discharge: no Medical Emergencies . Who to Call and When: Medical Emergencies: If at any time you feel your situation is an emergency, please call 911 immediately. . Non-Emergent Contact Non-Emergency issues call your: Surgeon . "Provider Documentation" section prepared by Soledad Evans. . Additional Copies To Irvin Rome M.D.
== END 2017-07-01 19:20 | disposition home health service (06) | DRG 502 ==
LOC: C.EDB 00:12 → C.3E 04:59 → ENRESERV 05:21 → OBSVTOIN 15:30
PROVIDERS: ADMIT Hospitalist; ATTEND Internal Medicine
PROC: 0S9D3ZX Drainage of Left Knee Joint, Percutaneous Approach, Diagnostic (ICD-10-PCS; 2017-06-30)
PROC: 0MDP0ZZ Extraction of Left Knee Bursa and Ligament, Open Approach (ICD-10-PCS; principal; 2017-06-30 07:15)
PROC: 02HV33Z Insertion of Infusion Device into Superior Vena Cava, Percutaneous Approach (ICD-10-PCS; 2017-07-01)
DX: M00.862 Arthritis due to other bacteria, left knee (principal); F17.200 Nicotine dependence, unspecified, uncomplicated; L29.9 Pruritus, unspecified

== ENCOUNTER → 2017-07-09 | Outpatient (CLI) | payer OTHER ==
[~2017-07-09] MED LIST changes: +ACET-1047 PO; -BCPILLS PO; -FLUO10CA48 PO; +RCPAV1 IV; +SERT50TA PO
[2017-07-09 09:58] LABS: HEMATOCRIT 34.9 % (37-47); HEMOGLOBIN 11.9 g/dL (12.0-16.0); MEAN CELL VOLUME 88.8 fL (80-100); MEAN CORPUSCULAR HEMOGLOBIN 30.3 pg (25-34); MEAN CORPUSCULAR HGB CONC 34.1 g/dl (32-36); MEAN PLATELET VOLUME 8.9 fL (7.4-10.4); PLATELET COUNT 362 K/uL (130-400); RED CELL DISTRIBUTION WIDTH CV 11.6 % (11.5-14.5); RED CELL DISTRIBUTION WIDTH SD 37.7 fL (36.4-46.3)
[2017-07-09 10:08] LABS: ALBUMIN 3.4 gm/dl (3.4-5.0); ALKALINE PHOSPHATASE 78 U/L (45-117); ALT/SGPT 21 U/L (12-78); AST/SGOT 10 U/L (15-37); TOTAL PROTEIN 7.5 gm/dl (6.4-8.2)
== END | disposition home or self-care (01) ==
LOC: C.LABSPEC 09:41
PROVIDERS: ATTEND Internal Medicine Infectious Disease
DX: M00.869 Arthritis due to other bacteria, unspecified knee (principal); B95.7 Other staphylococcus as the cause of diseases classified elsewhere

== ENCOUNTER → 2017-07-16 | Outpatient (CLI) | payer OTHER ==
[2017-07-16 10:08] LABS: HEMOGLOBIN 11.7 g/dL (12.0-16.0); MEAN CELL VOLUME 89.7 fL (80-100); MEAN CORPUSCULAR HEMOGLOBIN 30.9 pg (25-34); MEAN CORPUSCULAR HGB CONC 34.4 g/dl (32-36); MEAN PLATELET VOLUME 9.5 fL (7.4-10.4); PLATELET COUNT 282 K/uL (130-400); RED CELL DISTRIBUTION WIDTH CV 12.1 % (11.5-14.5); RED CELL DISTRIBUTION WIDTH SD 38.7 fL (36.4-46.3); WHITE BLOOD COUNT 5.68 K/uL (4.8-10.8)
[2017-07-16 10:19] LABS: ALBUMIN 3.4 gm/dl (3.4-5.0); ALT/SGPT 22 U/L (12-78); AST/SGOT 12 U/L (15-37); BLOOD UREA NITROGEN 12 mg/dl (7-18); CARBON DIOXIDE 27 mmol/L (21-32); CREATININE 0.64 mg/dl (0.60-1.20); GLUCOSE 86 mg/dl (70-99); POTASSIUM 3.8 mmol/L (3.5-5.1); SODIUM 139 mmol/L (136-145)
[2017-07-16 10:22] LABS: ALKALINE PHOSPHATASE 87 U/L (45-117); TOTAL PROTEIN 7.3 gm/dl (6.4-8.2)
== END | disposition home or self-care (01) ==
LOC: C.LABSPEC 09:47
PROVIDERS: ATTEND Internal Medicine Infectious Disease
DX: M00.869 Arthritis due to other bacteria, unspecified knee (principal); B95.7 Other staphylococcus as the cause of diseases classified elsewhere

== ENCOUNTER → 2017-07-23 | Outpatient (CLI) | payer OTHER ==
[2017-07-23 09:37] LABS: HEMATOCRIT 36.4 % (37-47); HEMOGLOBIN 12.2 g/dL (12.0-16.0); MEAN CELL VOLUME 89.4 fL (80-100); MEAN CORPUSCULAR HGB CONC 33.5 g/dl (32-36); MEAN PLATELET VOLUME 9.4 fL (7.4-10.4); PLATELET COUNT 279 K/uL (130-400); RED CELL DISTRIBUTION WIDTH CV 12.5 % (11.5-14.5); RED CELL DISTRIBUTION WIDTH SD 40.1 fL (36.4-46.3); WHITE BLOOD COUNT 5.86 K/uL (4.8-10.8)
[2017-07-23 09:51] LABS: ALBUMIN 3.7 gm/dl (3.4-5.0); BLOOD UREA NITROGEN 12 mg/dl (7-18); CARBON DIOXIDE 26 mmol/L (21-32); CREATININE 0.59 mg/dl (0.60-1.20); GLUCOSE 89 mg/dl (70-99); POTASSIUM 3.6 mmol/L (3.5-5.1); SODIUM 139 mmol/L (136-145)
[2017-07-23 09:54] LABS: ALKALINE PHOSPHATASE 89 U/L (45-117); ALT/SGPT 30 U/L (12-78); AST/SGOT 21 U/L (15-37); TOTAL PROTEIN 7.3 gm/dl (6.4-8.2)
== END | disposition home or self-care (01) ==
LOC: C.LABSPEC 09:18
PROVIDERS: ATTEND Internal Medicine Infectious Disease
DX: B95.7 Other staphylococcus as the cause of diseases classified elsewhere (principal); M00.869 Arthritis due to other bacteria, unspecified knee

== ENCOUNTER 2017-11-10 03:06 | Emergency (ER) | payer OTHER ==
[~2017-11-10] VITALS: Ht 160 cm; Wt 70.2 kg
[~2017-11-10 03:06] MED LIST changes: -RCPAV1 IV
[2017-11-10 03:08] VITALS: TEMP 37.2; Ht 160 cm; Wt 70.2 kg
--- NOTE | 2017-11-10 03:27 | EMERGENCY ROOM VISIT NOTE ---
History Report prepared by Isaiah: Sim Botello Under the Supervision of: Dr. Beck Duggan M.D. First contact with patient: 03:15 Chief Complaint: MENTAL HEALTH EVALUATION Stated Complaint: MENTAL HEALTH EVALUATION History of Present Illness The patient is a 21 year old female who presents to the Emergency Room with complaints of wanting a medication refill and psych evaluation. The patient has a history of Autism and Depression. The patient states tonight her and her mother were fighting this evening due to her wanting to go to her fiance's house , and her mother refusing to allow her to go. She states she does live with her mother at this time. She states she personally called the police because she wanted out of the house and her mother wouldn't let her, and they brought her here. The patient states she used to be on 50mg of Zoloft, and she discontinued them last month because "she doesn't like medication." She states she last saw her mastic sprayer x1 month ago. The patient states she hasn't been sleeping well the past few nights, and also occasionally feels hopeless. She states she does play her Nintendo and with her bunnies to keep herself busy. The patient denies suicidal/homicidal ideations or hallucinations. The patient denies taking any medications for anxiety. The patient state she just finished her menstrual cycle x2 days ago. I also spoke with mother of patient in the waiting area. She noted that her daughter has been increasingly distant, stopped her Zoloft because she wanted to become , and is afraid her daughter is at risk of harming herself. Review of Systems See HPI for pertinent positives & negatives. A total of 10 systems reviewed and were otherwise negative. Constitutional: No fever, No chills Respiratory: No cough, No shortness of breath Cardiovascular: No chest pain Abdomen: No pain, No nausea, No vomiting, No diarrhea Psychiatric: + problem reported (fight with mother- wants psych eval) Integumentary: No rash Past Medical & Surgical Medical Problems: (1) Acute URI (2) Left leg swelling (3) Otitis externa of right ear (4) Septic arthritis (5) Swelling of joint of left knee Family History Diabetes mellitus FH: cancer Hypertension Social History Smoking Status: Current Some Day Smoker Alcohol Use: none Drug Use: none Marital Status: single Housing Status: lives with family Occupation Status: unemployed Current/Historical Medications Scheduled Sertraline (Zoloft), 50 MG PO DAILY Allergies Coded Allergies: Morphine (Verified Allergy, Mild, other, 11/10/17) pruritus Physical Exam Vital Signs Date Time Temp Pulse Resp B/P (MAP) Pulse Ox O2 Delivery O2 Flow Rate FiO2 11/10/17 06:30 97 18 121/65 99 11/10/17 03:44 94 22 106/64 99 Room Air 11/10/17 03:08 37.2 113 20 130/77 98 Room Air Physical Exam GENERAL: Patient is well appearing and in no acute distress. EYES: No scleral icterus, unremarkable pupils. ENT: Mucous membranes moist, no nasal congestion. NECK: No masses appreciated, no meningismus, trachea is midline. RESPIRATORY: No dyspnea. Clear to auscultation and equal bilaterally. No wheeze , no rhonchi. CARDIOVASCULAR: Regular rate and rhythm. No murmurs, rubs, gallops appreciated. GASTROINTESTINAL: Abdomen soft, nontender, no peritonitis. Bowel sounds positive. No masses appreciated. BACK: No midline tenderness, no CVA tenderness EXTREMITIES: Normal motion all extremities, no cyanosis, no edema. NEUROLOGIC: Alert and oriented, no acute motor or sensory deficits, no focal weakness, cranial nerves grossly intact. SKIN: No rash, no jaundice, no diaphoresis. PSYCH: Sad and crying Medical Decision & Procedures Laboratory Results 11/10/17 03:50 Red Blood Count 4.19, Mean Corpuscular Volume 89.3, Mean Corpuscular Hemoglobin 30.3, Mean Corpuscular Hemoglobin Concent 34.0, Mean Platelet Volume 10.0, Neutrophils (%) (Auto) 73.8, Lymphocytes (%) (Auto) 17.4, Monocytes (%) (Auto) 7.8, Eosinophils (%) (Auto) 0.4, Basophils (%) (Auto) 0.4, Neutrophils # (Auto) 7.09, Lymphocytes # (Auto) 1.67, Monocytes # (Auto) 0.75, Eosinophils # (Auto) 0.04, Basophils # (Auto) 0.04 11/10/17 03:50 Test 11/10/17 03:15 11/10/17 03:50 Urine Color YELLOW Urine Appearance CLOUDY (CLEAR) Urine pH 6.5 (4.5-7.5) Urine Specific [place] 1.034 (1.000-1.030) Urine Protein NEG (NEG) Urine Glucose (UA) NEG (NEG) Urine Ketones TRACE (NEG) Urine Occult Blood 3+ (NEG) Urine Nitrite NEG (NEG) Urine Bilirubin NEG (NEG) Urine Urobilinogen NEG (NEG) Urine Leukocyte Esterase TRACE (NEG) Urine WBC (Auto) 1-5 /hpf (0-5) Urine RBC (Auto) 0-4 /hpf (0-4) Urine Hyaline Casts (Auto) 1-5 /lpf (0-5) Urine Epithelial Cells (Auto) >30 /lpf (0-5) Urine Bacteria (Auto) 2+ (NEG) Urine Yeast (Auto) (NONE PRSENT) Urine Test NEG (NEG) Urine Opiates Screen NEG (NEG) Urine Methadone, Qualitative NEG (NEG) Urine Barbiturates NEG (NEG) Urine Phencyclidine (PCP) Level NEG (NEG) Ur Amphetamine/Methamphetamine NEG (NEG) MDMA (Ecstasy) Screen NEG (NEG) Urine Benzodiazepines Screen NEG (NEG) Urine Cocaine Metabolite NEG (NEG) Urine Marijuana (THC) NEG (NEG) White Blood Count 9.61 K/uL (4.8-10.8) Red Blood Count 4.19 M/uL (4.2-5.4) Hemoglobin 12.7 g/dL (12.0-16.0) Hematocrit 37.4 % (37-47) Mean Corpuscular Volume 89.3 fL (80-100) Mean Corpuscular Hemoglobin 30.3 pg (25-34) Mean Corpuscular Hemoglobin Concent 34.0 g/dl (32-36) Platelet Count 314 K/uL (130-400) Mean Platelet Volume 10.0 fL (7.4-10.4) Neutrophils (%) (Auto) 73.8 % Lymphocytes (%) (Auto) 17.4 % Monocytes (%) (Auto) 7.8 % Eosinophils (%) (Auto) 0.4 % Basophils (%) (Auto) 0.4 % Neutrophils # (Auto) 7.09 K/uL (1.4-6.5) Lymphocytes # (Auto) 1.67 K/uL (1.2-3.4) Monocytes # (Auto) 0.75 K/uL (0.11-0.59) Eosinophils # (Auto) 0.04 K/uL (0-0.5) Basophils # (Auto) 0.04 K/uL (0-0.2) RDW Standard Deviation 39.6 fL (36.4-46.3) RDW Coefficient of Variation 12.5 % (11.5-14.5) Immature Granulocyte % (Auto) 0.2 % Immature Granulocyte # (Auto) 0.02 K/uL (0.00-0.02) Anion Gap 7.0 mmol/L (3-11) Est Creatinine Clear Calc Drug Dose 110.4 ml/min Estimated GFR () 129.7 Estimated GFR (Non- 111.9 BUN/Creatinine Ratio 15.4 (10-20) Calcium Level 8.7 mg/dl (8.5-10.1) Total Bilirubin 0.3 mg/dl (0.2-1) Aspartate Amino Transf (AST/SGOT) 21 U/L (15-37) Alanine Aminotransferase (ALT/SGPT) 26 U/L (12-78) Alkaline Phosphatase 97 U/L (45-117) Total Protein 7.4 gm/dl (6.4-8.2) Albumin 4.0 gm/dl (3.4-5.0) Globulin 3.4 gm/dl (2.5-4.0) Albumin/Globulin Ratio 1.2 (0.9-2) Thyroid Stimulating Hormone (TSH) 1.280 uIu/ml (0.300-4.500) Salicylates Level < 1.7 mg/dl (2.8-20) Acetaminophen Level < 2 ug/ml (10-30) Ethyl Alcohol mg/dL < 3.0 mg/dl (0-3) Medications Administered Medications (Trade) Dose Ordered Sig/Abelino Route Start Time Stop Time Status Last Admin Dose Admin Lorazepam (Ativan Tab) 0.5 mg NOW STAT SL 11/10/17 03:32 11/10/17 03:33 DC 11/10/17 03:44 0.5 MG Medical Decision Ms. Ross is a pleasant 21 year old female who reports for a metal health evaluation. She has a history of depression and has Autism. She notes having a fight with her mother this evening due to wanting to go to her fiance's house and mother refused to let her go so she called the police to come here instead. Differential Diagnosis: Mood Disorder, Overdose, Infectious, Electrolyte Abnormality, Cardiac, Hepatic, Endocrine, Toxicologic, Neurologic, amongst other pathologies entertained. Rechecks: [id number]: Patient is feeling much better and wishes to talk with mental health liaison. 0620: Patient is feeling better. She wants to go home and is fine going home with mother. She states she feels safe. She again denies suicidal/homicidal ideations. After some time patient much calmer. She was seen by [facility] and felt low risk for harm to self or others. She has no statements of harm, no act of furtherance, no 302, and mother feels that she is unlikely to harm herself. She will go home with mother. She is aware that we are always here to help if worsening or other concerns. Medication Reconcilliation Current Medication List: was personally reviewed by me Impression Primary Impression: Depression Scribe Attestation The scribe's documentation has been prepared under my direction and personally reviewed by me in its entirety. I confirm that the note above accurately reflects all work, treatment, procedures, and medical decision making performed by me. Departure Information Dispostion Home / Self-Care Referrals No Doctor, Assigned (PCP) Forms HOME CARE DOCUMENTATION FORM, IMPORTANT VISIT INFORMATION Patient Instructions My [facility] Additional Instructions We are always here to help. Return if worsening depression or if thoughts of harm to yourself or others develop. Follow up with your Primary Care Provider and psychologist as soon as possible.
[2017-11-10] MEDS ORDERED: LORAZEPAM 0.5 MG TAB SL STA (03:32)
[2017-11-10 04:10] LABS: BASO % 0.4 %; BASO ABS # 0.04 K/uL (0-0.2); EOS % 0.4 %; EOS ABS # 0.04 K/uL (0-0.5); HEMATOCRIT 37.4 % (37-47); HEMOGLOBIN 12.7 g/dL (12.0-16.0); IG# 0.02 K/uL (0.00-0.02); LYMPH % 17.4 %; LYMPH ABS # 1.67 K/uL (1.2-3.4); MEAN CELL VOLUME 89.3 fL (80-100); MEAN CORPUSCULAR HEMOGLOBIN 30.3 pg (25-34); MONO % 7.8 %; MONO ABS # 0.75 K/uL (0.11-0.59); NEUT % 73.8 %; NEUT ABS # 7.09 K/uL (1.4-6.5); PLATELET COUNT 314 K/uL (130-400); RED CELL DISTRIBUTION WIDTH CV 12.5 % (11.5-14.5); RED CELL DISTRIBUTION WIDTH SD 39.6 fL (36.4-46.3); WHITE BLOOD COUNT 9.61 K/uL (4.8-10.8)
[2017-11-10 04:38] LABS: CALCIUM 8.7 mg/dl (8.5-10.1); CREATININE 0.77 mg/dl (0.60-1.20); POTASSIUM 3.4 mmol/L (3.5-5.1); TOTAL PROTEIN 7.4 gm/dl (6.4-8.2)
[2017-11-10 06:30] VITALS: BP 121/65; PULSE 97; O2SAT 99
== END 2017-11-10 06:30 | disposition home or self-care (01) ==
LOC: C.EDB 03:07 → C.EDA 06:30
DX: F32.9 Major depressive disorder, single episode, unspecified (principal); F17.200 Nicotine dependence, unspecified, uncomplicated; Z86.59 Personal history of other mental and behavioral disorders; Z88.6 Allergy status to analgesic agent

== ENCOUNTER 2019-04-17 02:49 | Observation (INO) ==
[2019-04-17] MEDS: LACTATED RINGER'S 1,000 ML IV PRN ×2 (03:53→04:52)
[2019-04-17] MEDS ORDERED: ACETAMINOPHEN 1,000 MG/100 ML VIAL IV STA (04:59)
[2019-04-17] MEDS ORDERED: TERBUTALINE SULFATE 1 MG/ML VIAL SQ ONE (06:02)
[2019-04-17] MEDS ORDERED: BUTORPHANOL TARTRATE 1 MG/ML VIAL IV PRN (06:40)
[2019-04-17 07:01] LABS: Appearance Urine Clear (Clear); Bilirubin Urine Negative (Negative); Blood Urine Negative (Negative); Color Urine Yellow; Glucose Urine UA Negative (Negative); Ketones Urine 2+ (Negative); Leukocyte Esterase Urine Negative (Negative); Nitrite Urine Negative (Negative); Protein Urine Negative (Negative); Specific Gravity Urine 1.017 (1.000-1.030); Urobilinogen Urine Negative (Negative)
--- NOTE | 2019-04-17 08:32 | History & Physical Report ---
Date of Service April 17, 2019 Assessment & Plan (1) Abdominal pain affecting : 23 yo at 29.6 wks with recurrent abdominal pain episodes, no cervical change Normal abd US and MRI Responded to IV Pepcid one time This time food intake related VSS Afebrile FHR reassuring Plan IVF bolus, labs, IV Pepcid and medicine consultation and reevaluate History of Present Illness Chief Complaint: Abdominal pain Primary Care Provider: Irvin Rome MD Patient is a 23 yo at 29.6 wks who is presenting with recurrent abdominal pain This is 5th time since 26 weeks She was initially started on Procardia and her cx was closed I checked her on 03/29 and cervix changed to 1-2 cm and [place] [facility] cervix did not change and she was discharged She came another time and labor was ruled out and sent to ER She had abdominal US/ MRI in ER and those were negative She was given IV Pepcid and Oxy R and sent home She was better and did not continue with PO Pepcid She came back on 04/14 am when she c/o severe abdominal pain I gave her IV Pepcid and Tylenol but it did not help Then Dr Buckner gave her Terbutaline it did not help She was transferred [place] [facility] [place] She stated there for overnight and was sent home in the morning 04/15 when pain was resolved Susy had Sex on Started to have abdominal pain again after lunch ( pizza) and then got worse after dinner ( Alexys Pablo) at 8 pm last night It got worse after 2 am No LOF/VB +FM She is moaning with pain No fever/ chills/ N&V/ Dysuria/ Constipation and diarrhea She likes to eat sausage and eggs now She denies any medical problems, smoking/ alcohol or drug use She denies any h/o and changes of STD She denies domestic violence She denies depression/ anxiety or being mad Allergies Allergy/AdvReac Type Severity Reaction Status Date / Time morphine Allergy Mild Rash Verified 04/14/19 05:26 Home Medications Home Medications Medication Instructions Recorded Confirmed Type [id number] fumarate-FA 1 tab PO DAILY 02/04/19 04/14/19 History [] famotidine [Pepcid] 40 mg PO HS #30 tab 03/29/19 04/14/19 Rx oxycodone 5 mg PO Q6H PRN #14 tab 03/29/19 04/14/19 Rx sucralfate [Carafate] 1 gm PO Q6H 28 Days #112 tab 03/29/19 04/14/19 Rx Patient History Social History Preferred Language: Swazi marital status: Single Feels Safe at Home: Yes Safety Concerns: Feels Safe At This Time Smoking Status: Never smoker Second Hand Exposure: No ; Hx Alcohol Use: No Hx Substance Use: No Review of Systems All systems reviewed & are unremarkable except as noted in HPI & below Physical Exam Constitutional: WD/WN, vitals as above well developed, well nourished and + acute distress (moaning and crying in pain) Gastrointestinal (Abdomen): normal bowel sounds, soft, nontender, no hepatosplenomegaly Abd: soft, no rebound, no rigidity, no defense Uterus soft Genitourinary: Cervix: 1/ 30%/ -3, unchanged Results & Data Vital Signs (Past 12 Hours) Vital Signs Temp Pulse Resp BP Pulse Ox 04/17/19 08:30 105 H 98 04/17/19 08:25 106 H 98 04/17/19 08:20 109 H 99 04/17/19 08:15 114 H 99 04/17/19 08:10 113 H 98 04/17/19 08:05 103 H 98 04/17/19 08:00 103 H 98 04/17/19 07:55 108 H 98 04/17/19 07:50 145 H 99 04/17/19 07:45 124 H 98 04/17/19 07:40 113 H 98 04/17/19 07:35 131 H 98 04/17/19 07:30 111 H 98 04/17/19 07:25 115 H 98 04/17/19 07:20 98 H 98 04/17/19 07:17 96 H 94 04/17/19 07:15 108 H 95 04/17/19 07:10 106 H 100 04/17/19 07:05 106 H 100 04/17/19 07:04 97 H 109/52 L 04/17/19 07:00 118 H 100 04/17/19 06:55 116 H 99 04/17/19 06:50 120 H 100 04/17/19 06:38 100 H 100 04/17/19 06:33 109 H 100 04/17/19 06:28 111 H 99 04/17/19 06:23 102 H 99 04/17/19 06:20 85 117/56 L 04/17/19 06:18 106 H 100 04/17/19 06:15 109 H 123/55 L 04/17/19 06:13 111 H 99 04/17/19 06:09 18 04/17/19 06:08 93 H 123/70 100 04/17/19 03:03 36.6 C 68 20 118/64 04/17/19 03:02 68 118/64 Monitoring External Monitor HR had been reactive with good variability no decels Tocodynamometer No ctxs
[2019-04-17] MEDS ORDERED: FAMOTIDINE 20 MG in SYRINGE 3 ML IV SCH ×2 (08:45→21:00)
[2019-04-17 08:48] LABS: Basophils # (auto) 0.02 K/uL (0-0.2); Basophils % (auto) 0.2 %; Eosinophils # (auto) 0.09 K/uL (0-0.5); Eosinophils % (auto) 0.7 %; Hematocrit (blood only) 28.8 % (37-47); Hemoglobin 9.9 g/dL (12.0-16.0); Immature Granulocytes # (auto) 0.08 K/uL (0.00-0.02); Immature Granulocytes % (auto) 0.6 %; Lymphocytes # (auto) 2.24 K/uL (1.2-3.4); Lymphocytes % (auto) 17.7 %; Mean Corpuscular Hgb Conc 34.4 g/dL (32-36); Mean Corpuscular Volume 90.3 fL (80-100); Mean Platelet Volume 9.6 fL (7.4-10.4); Monocytes # (auto) 0.87 K/uL (0.11-0.59); Monocytes % (auto) 6.9 %; Neutrophils # (auto) 9.34 K/uL (1.4-6.5); Neutrophils % (auto) 73.9 %; Platelet Count 283 K/uL (130-400); RDW Coefficient of Variation 12.6 % (11.5-14.5); RDW Standard Deviation 40.6 fL (36.4-46.3); Red Blood Count 3.19 M/uL (4.2-5.4); White Blood Count 12.64 K/uL (4.8-10.8)
[2019-04-17 09:15] LABS: Alanine Aminotransferase 17 U/L (12-78); Albumin Level 2.6 gm/dl (3.4-5.0); Aspartate Aminotransferase 11 U/L (15-37); BUN Creatinine Ratio 9.5 (10-20); Blood Urea Nitrogen 6 mg/dl (7-18); Calcium 9.2 mg/dl (8.5-10.1); Carbon Dioxide 22 mmol/L (21-32); Chloride 109 mmol/L (98-107); Creatinine Clr Calc Pharmacy 150.7 ml/min; Est GFR (African American) > 150.0; Glucose 85 mg/dl (70-99); Potassium 3.4 mmol/L (3.5-5.1); Sodium 139 mmol/L (136-145)
[2019-04-17 09:17] LABS: Albumin Globulin Ratio 0.7 (0.9-2); Alkaline Phosphatase 107 U/L (45-117); Bilirubin,Total 0.2 mg/dl (0.2-1); Globulin 3.9 gm/dl (2.5-4.0); Total Protein 6.5 gm/dl (6.4-8.2)
--- NOTE | 2019-04-17 12:26 | Consultation ---
Date of Consultation April 17, 2019 Assessment & Plan (1) Abdominal pain affecting : 23 yr old F at 29.6wks who presents to ED with recurrent abdominal pain. So far work up is unrevealing including MRI abd/pelvis on 03/29, numerous repeat lab work including LFT, platelets WNL. Does not appear to be gallbladder pathology, no signs of pancreatitis. Bowel and urinary habits are unremarkable. UA negative for infection. (previously had been treated for UTI with macrobid and vaginitis with flagyl) Boyfriend is at bedside who answers majority of questions - this is concerning to me from a social standpoint Per history pt has poor diet with high saturated fats/fast food continue monitoring on OB clear liquid diet, ADAT to low fat diet nutrition consult to assist with diet in Pepcid bid prn pain control per OB (2) : , 29.6 weeks Per REGISTERED PUBLIC SURVEYOR (3) Hypokalemia: replace with IVF repeat in a.m. (4) Anemia: H&H stable at 9.9 and 28.8 Likely normal dilutional effect No signs or symptoms of bleeding Monitor (5) Leukocytosis: Leukocytosis 12.64 Normal physiological variant of No signs or symptoms of infection, afebrile (6) DVT prophylaxis: SCDS Disposition: per primary Follow up: PCP Dr. Rome and appropriate OB follow up Pt was seen and examined in collaboration with Dr. Hays, please see addendum Starting 04/18/2019 pt will be under the care of Dr. Ortega Thank you for this consultation. We will follow the patient with you during their hospital stay. You can reach a member of the [facility] Hospitalist Team 28/10 via pager @ [phone]. Supervising Physician Co-Signing Physician Notes HISTORY: Record reviewed. Patient interviewed and examined. Care coordinated with Marisa Velázquez PA-C. Please refer to her documentation for complete history. Briefly, 23 YO F ~ 30 wk IUP with abdominal pain. Has been experiencing intermittent symptoms for several weeks. No fever, nausea, vomiting, diarrhea. No urinary symptoms. Recent US and MR evaluation of abdomen unrevealing. EXAM: General- no distress Lungs- clear to auscultation; no respiratory distress Cardiovascular- RRR; IIVI flow murmur at base; no gallop; no JVD; no pretibial edema Abdomen- gravid uterus; + bowel sounds, soft, nontender Extremities- no cyanosis; no calf tenderness Neuro- alert, oriented Skin- warm & dry DATA: Hemoglobin 9.9, white count 12,640, platelet count 283,000. Chemistry showed sodium 139, potassium 3.4, chloride 109, CO2 22, BUN 6, creatinine 0.59, glucose 85, normal LFTs. UA showed 2+ ketones, otherwise negative. Other lab studies as noted. ASSESSMENT AND PLAN: 23-year-old female with intrauterine experiencing intermittent abdominal pain. Symptoms do not suggest upper GI pathology. No significant findings on recent ultrasound and MRI of abdomen. Mild leukocytosis not unexpected during . No evidence of urinary tract infection. May has some dietary intolerance; seems that her symptoms are sometimes aggravated by eating fatty food like cheeseburgers. Dietary consult recommended. Increase diet as tolerated. Further evaluation as necessary if patient experiences any specific worrisome symptoms. Please refer to HENRY Velázquez's documentation for discussion of other issues. Thank you for this consultation. We will follow the patient with you during their hospital stay. My cell # is [phone]. You can reach a member of the [facility] Medicine Team 28/10 via pager @ [phone]. History of Present Illness Requesting Physician: Dr. Tavares Reason for Consultation: Abdominal pain during Attending Physician: Eloy Buckner MD History of Present Illness This is a 23-year-old female at 29.6 weeks who presents to ED secondary to recurrent abdominal pain that started again yesterday. This is her fifth hospital evaluation in 26 weeks. She was admitted to [facility] x2 on 03/27 and again on 04/14-04/15 in which labor was ruled out. Boyfriend and 2 children are at bedside. Boyfriend does a lot of the talking. Elicits her recurrent abdominal pain started approximately on 03/29. Abdominal pain comes and goes but has been occurring daily. Per patient abdominal pain is located periumbilically and radiates to suprapubic region and into low back. Pain waxes and wanes currently 6/10, made worse with sitting forward, not imp roved with anything. Boyfriend felt symptoms were improved with the medication they gave her through IV to prevent labor. After further questioning she also elicits to mild improvement with IV Pepcid. She is unable to locate pattern to pain or trigger. Yesterday her pain began in the morning, was mild and wax and wane all day until approximately 9 PM and it became very severe. Describes it as sharp and stabbing. At approximately 7 PM she did eat a double cheeseburger from [employer]. Boyfriend states he works at [employer] and brings her home food frequently. Her diet mostly consist of high fat and transfats and fast food. She denies any acid reflux or regurg. Denies any recent illness, fever, chills, sweats, lightheadedness, dizziness, syncope, chest pain, shortness breath, cough, hemoptysis, palpitations, nausea, vomiting, diarrhea, melena, hematochezia, pain with bowel movement, dysuria, increased urgency or frequency with urination, hematuria. Last actual intercourse was 04/15. Denies any vaginal bleeding or discharge. She feels somewhat improved since admission. She has not had any thing to eat or drink since last evening and is requesting to try food. She currently lives with a boyfriend. Denies any smoking, alcohol use, illicit drug use. She denies any underlying depression. Her mother and father are alive and well, no known medical issues. Has 1 brother alive and well. Prior surgeries were a right bunionectomy and surgery on her left foot. Due to her recurrent abdominal pain multiple ER visits, hospitalizations she did have numerous imaging studies done. On 03/29 she did undergo MRI of abdomen pelvis which was relatively unremarkable. Liver, gallbladder, pancreas, spleen were all unremarkable. He did reveal mild right hydro-nephrosis secondary to mass-effect from gravid uterus. She had gallbladder ultrasound 03/21 which was unremarkable. Lab work has all been relatively unremarkable including LFTs, amylase, lipase. She has been mildly hypokalemic and hyperchloremic. 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 Hx of Lyme disease Surgical History (Updated 04/17/19 @ 12:22 by Marisa Velázquez PA-C) History of bunionectomy Right Family History Mother Alive and well Father Alive and well Brother Alive and well Social History Preferred Language: [place] marital status: Single Feels Safe at Home: Yes Safety Concerns: Feels Safe At This Time Smoking Status: Never smoker Second Hand Exposure: No ; Hx Alcohol Use: No Hx Substance Use: No Review of Systems Review of Systems: All systems reviewed & are unremarkable except as noted in HPI & below Physical Exam Physical Exam: Constitutional: WD/WN, pale, ill appearing F, vitals as above, NAD, sitting up in bed, pleasant, answers questions appropriately Head: Normocephalic, Atraumatic Eyes: PERRL, conjunctivae normal, anicteric sclerae ENMT: external ear and nose normal, oropharynx normal but dry mucous membrane Neck: trachea midline, no thyromegaly normal visual inspection Respiratory: normal respiratory effort, lungs clear to auscultation, no wheeze, rales, rhonchi. Normal insp/exp effort, no accessory muscle use Cardiovascular: RRR, no murmur, no edema Vessels: no JVD or carotid bruit Chest: normal inspection of chest Abdomen: normal bowel sounds, soft, distended secondary to , mild periumbilical tenderness, no rebound or guarding no rigidity, multiple striae present Musculoskeletal: no cyanosis or clubbing, extremities motor strength 5/5 Skin: no rashes, warm and dry normal turgor Neurologic: PERRL, EOMI, accommodation nl, no face palsy, no dysarthria CN's II-XI intact bilaterally and moves all extremities Psychiatric: A+Ox3, euthymic affect Lymphatic: no cervical or axillary lymphadenopathy : deferred Results & Data Vital Signs (Past 12 Hours) Vital Signs Temp Pulse Resp BP Pulse Ox 04/17/19 12:20 81 97 04/17/19 12:15 80 98 04/17/19 12:10 91 H 99 04/17/19 12:05 79 98 04/17/19 12:00 85 99 04/17/19 11:57 80 107/53 L 04/17/19 11:55 90 98 04/17/19 11:50 97 H 98 04/17/19 11:45 91 H 97 04/17/19 11:40 82 97 04/17/19 11:35 81 97 04/17/19 11:30 79 97 04/17/19 11:25 78 98 04/17/19 11:20 87 98 04/17/19 11:15 78 98 04/17/19 11:10 76 98 04/17/19 11:05 92 H 98 04/17/19 11:00 81 97 04/17/19 10:55 81 97 04/17/19 10:50 81 98 04/17/19 10:45 86 97 04/17/19 10:40 82 97 04/17/19 10:35 88 97 04/17/19 10:30 82 97 04/17/19 10:25 83 97 04/17/19 10:20 115 H 98 04/17/19 10:15 94 H 97 04/17/19 10:10 92 H 96 04/17/19 10:05 89 96 04/17/19 10:00 86 97 04/17/19 09:55 93 H 96 04/17/19 09:50 88 97 04/17/19 09:45 89 97 04/17/19 09:40 97 H 97 04/17/19 09:35 101 H 97 04/17/19 09:30 99 H 97 04/17/19 09:25 96 H 97 04/17/19 09:20 91 H 97 04/17/19 09:15 98 H 97 04/17/19 09:10 106 H 95 04/17/19 09:07 96 H 91 04/17/19 09:05 100 H 99 04/17/19 08:55 97 H 98 04/17/19 08:54 94 H 92 04/17/19 08:50 106 H 98 04/17/19 08:45 110 H 98 04/17/19 08:42 109 H 94 04/17/19 08:40 101 H 95 04/17/19 08:35 99 H 98 04/17/19 08:30 105 H 98 04/17/19 08:25 106 H 98 04/17/19 08:20 109 H 99 04/17/19 08:15 114 H 99 04/17/19 08:10 113 H 98 04/17/19 08:05 103 H 98 04/17/19 08:00 103 H 98 04/17/19 07:55 108 H 98 04/17/19 07:50 145 H 99 04/17/19 07:45 124 H 98 04/17/19 07:40 113 H 98 04/17/19 07:35 131 H 98 04/17/19 07:30 111 H 98 04/17/19 07:25 115 H 98 04/17/19 07:20 98 H 98 04/17/19 07:17 96 H 94 04/17/19 07:15 108 H 95 04/17/19 07:10 106 H 100 04/17/19 07:05 106 H 100 04/17/19 07:04 97 H 109/52 L 04/17/19 07:00 118 H 100 04/17/19 06:55 116 H 99 04/17/19 06:50 120 H 100 04/17/19 06:38 100 H 100 04/17/19 06:33 109 H 100 04/17/19 06:28 111 H 99 04/17/19 06:23 102 H 99 04/17/19 06:20 85 117/56 L 04/17/19 06:18 106 H 100 04/17/19 06:15 109 H 123/55 L 04/17/19 06:13 111 H 99 04/17/19 06:09 18 04/17/19 06:08 93 H 123/70 100 04/17/19 03:03 36.6 C 68 20 118/64 04/17/19 03:02 68 118/64 Laboratory Results Short CBC 04/17/19 Range/Units 08:20 WBC 12.64 H (4.8-10.8) K/uL Hgb 9.9 L (12.0-16.0) g/dL Hct 28.8 L (37-47) % Plt Count 283 (130-400) K/uL BMP 04/17/19 08:20 Sodium 139 Potassium 3.4 L Chloride 109 H Carbon Dioxide 22 BUN 6 L Creatinine 0.59 L Glucose 85 Calcium 9.2 Liver Function 04/17/19 Range/Units 08:20 Total Bilirubin 0.2 (0.2-1) mg/dl AST 11 L (15-37) U/L ALT 17 (12-78) U/L Alkaline Phosphatase 107 (45-117) U/L Albumin 2.6 L (3.4-5.0) gm/dl Urine 04/17/19 Range/Units 06:50 Urine Color Yellow Urine Appearance Clear (Clear) Urine pH 7.0 (4.5-7.5) Ur Specific [place] 1.017 (1.000-1.030) Urine Protein Negative (Negative) Urine Glucose (UA) Negative (Negative) Diagnostic Findings Previous diagnostic imaging reviewed: MRI Abd/Pelvis: 03/29/19 IMPRESSION: 1. There is mild right-sided hydronephrosis, likely secondary to mass effect from the gravid uterus. 2. There is a single intrauterine gestation. Note that this does not constitute a dedicated scan. 3. Trace pleural effusions. 03/21/19 Transvaginal US: IMPRESSION: 1. Single live second trimester intrauterine with composite estimated gestational age of 25 weeks 4 days and estimated date of delivery 06/30/2019. This is concordant with the prior ultrasound evaluation in January indicating expected growth. 2. Cervix closed. 3. No placenta previa. GB U/S: IMPRESSION: 1. No cholelithiasis or biliary ductal dilatation. 2. Suspected mild right "hydronephrosis of ". Medications Administered Butorphanol Tartrate (Stadol) 1 mg IV ONCE PRN PRN Reason: Pain Stop: 05/17/19 06:39 Last Admin: 04/17/19 07:10 Dose: 1 mg Documented by: [id number] Cosigned by: [id number] Lactated Ringer's (Lr) 1,000 mls @ 125 mls/hr IV .Q8H PRN; Protocol PRN Reason: L&D Protocol Stop: 05/17/19 03:42 Last Infusion: 04/17/19 11:05 Dose: 125 mls/hr Documented by: [id number] Admin: 04/17/19 04:52 Dose: 125 mls/hr Documented by: [id number] Infusion: 04/17/19 04:52 Dose: 0 mls/hr Documented by: [id number] Admin: 04/17/19 03:53 Dose: 999 mls/hr Documented by: [id number] Discontinued Medications Diphenhydramine HCl (Benadryl Capsule) 50 mg PO NOW ONE Stop: 04/17/19 06:41 Last Admin: 04/17/19 07:09 Dose: 50 mg Documented by: [id number] Acetaminophen (Ofirmev) 1,000 mg in 100 mls @ 400 mls/hr IV NOW STA Stop: 04/17/19 05:13 Last Infusion: 04/17/19 05:45 Dose: 0 mls/hr Documented by: [id number] Admin: 04/17/19 05:12 Dose: 400 mls/hr Documented by: [id number] Famotidine 20 mg/ Syringe 5 mls @ 2.5 mls/min IV TODAY@0845 [facility] Stop: 04/17/19 08:46 Last Admin: 04/17/19 08:45 Dose: 2.5 mls/min Documented by: [id number] Terbutaline Sulfate (Brethine) 0.25 mg SQ NOW ONE Stop: 04/17/19 06:03 Last Admin: 04/17/19 06:09 Dose: 0.25 mg Documented by: [id number]
--- NOTE | 2019-04-17 13:25 | Obstetrical Progress Note ---
Date of Service April 17, 2019 Subjective Patient is reevaluated She feels much better, pain is minimal now Tolerating clears Medicine saw her and likes to keep her on clear diet and low fat for dinner and see how she does She agrees to stay FHR reactive No ctxs on monitor Results & Data Vital Signs (Past 12 Hours) Vital Signs Temp Pulse Resp BP Pulse Ox 04/17/19 12:55 102 H 98 04/17/19 12:50 98 H 98 04/17/19 12:45 109 H 97 04/17/19 12:40 84 97 04/17/19 12:35 78 98 04/17/19 12:30 80 97 04/17/19 12:25 83 97 04/17/19 12:20 81 97 04/17/19 12:15 80 98 04/17/19 12:10 91 H 99 04/17/19 12:05 79 98 04/17/19 12:00 85 99 04/17/19 11:57 80 107/53 L 04/17/19 11:55 90 98 04/17/19 11:50 97 H 98 04/17/19 11:45 91 H 97 04/17/19 11:40 82 97 04/17/19 11:35 81 97 04/17/19 11:30 79 97 04/17/19 11:25 78 98 04/17/19 11:20 87 98 04/17/19 11:15 78 98 04/17/19 11:10 76 98 04/17/19 11:05 92 H 98 04/17/19 11:00 81 97 04/17/19 10:55 81 97 04/17/19 10:50 81 98 04/17/19 10:45 86 97 04/17/19 10:40 82 97 04/17/19 10:35 88 97 04/17/19 10:30 82 97 04/17/19 10:25 83 97 04/17/19 10:20 115 H 98 04/17/19 10:15 94 H 97 04/17/19 10:10 92 H 96 04/17/19 10:05 89 96 04/17/19 10:00 86 97 04/17/19 09:55 93 H 96 04/17/19 09:50 88 97 04/17/19 09:45 89 97 04/17/19 09:40 97 H 97 04/17/19 09:35 101 H 97 04/17/19 09:30 99 H 97 04/17/19 09:25 96 H 97 04/17/19 09:20 91 H 97 04/17/19 09:15 98 H 97 04/17/19 09:10 106 H 95 04/17/19 09:07 96 H 91 04/17/19 09:05 100 H 99 04/17/19 08:55 97 H 98 04/17/19 08:54 94 H 92 04/17/19 08:50 106 H 98 04/17/19 08:45 110 H 98 04/17/19 08:42 109 H 94 04/17/19 08:40 101 H 95 04/17/19 08:35 99 H 98 04/17/19 08:30 105 H 98 04/17/19 08:25 106 H 98 04/17/19 08:20 109 H 99 04/17/19 08:15 114 H 99 04/17/19 08:10 113 H 98 04/17/19 08:05 103 H 98 04/17/19 08:00 103 H 98 04/17/19 07:55 108 H 98 04/17/19 07:50 145 H 99 04/17/19 07:45 124 H 98 04/17/19 07:40 113 H 98 04/17/19 07:35 131 H 98 04/17/19 07:30 111 H 98 04/17/19 07:25 115 H 98 04/17/19 07:20 98 H 98 04/17/19 07:17 96 H 94 04/17/19 07:15 108 H 95 04/17/19 07:10 106 H 100 04/17/19 07:05 106 H 100 04/17/19 07:04 97 H 109/52 L 04/17/19 07:00 118 H 100 04/17/19 06:55 116 H 99 04/17/19 06:50 120 H 100 04/17/19 06:38 100 H 100 04/17/19 06:33 109 H 100 04/17/19 06:28 111 H 99 04/17/19 06:23 102 H 99 04/17/19 06:20 85 117/56 L 04/17/19 06:18 106 H 100 04/17/19 06:15 109 H 123/55 L 04/17/19 06:13 111 H 99 04/17/19 06:09 18 04/17/19 06:08 93 H 123/70 100 04/17/19 03:03 36.6 C 68 20 118/64 04/17/19 03:02 68 118/64
[2019-04-17] MEDS ORDERED: POTASSIUM CHLORIDE 20 MEQ in LACTATED RINGER'S 1,000 ML IV SCH (14:00)
[2019-04-17] MEDS ORDERED: FAMOTIDINE 20 MG TAB PO SCH (21:00)
[2019-04-17] MEDS ORDERED: FAMOTIDINE 20 MG in SYRINGE 3 ML IV PRN (21:00)
--- NOTE | 2019-04-17 22:13 | Obstetrical Progress Note ---
Date of Service April 17, 2019 Subjective Patient is reevaluated She feels much better and likes to be discharged home No ctxs/ LOF/VB +FM FHR reactive Sells no ctxs Discussed healthy diet Discussed signs of labor and when to call Plan to d/c home with Pepcid and f/u in office All questions were answered Results & Data Vital Signs (Past 12 Hours) Vital Signs Temp Pulse Resp BP Pulse Ox 04/17/19 15:11 36.6 C 80 16 106/51 L 04/17/19 12:55 102 H 98 04/17/19 12:50 98 H 98 04/17/19 12:45 109 H 97 04/17/19 12:40 84 97 04/17/19 12:35 78 98 04/17/19 12:30 80 97 04/17/19 12:25 83 97 04/17/19 12:20 81 97 04/17/19 12:15 80 98 04/17/19 12:10 91 H 99 04/17/19 12:05 79 98 04/17/19 12:00 85 99 04/17/19 11:57 80 107/53 L 04/17/19 11:55 90 98 04/17/19 11:50 97 H 98 04/17/19 11:45 91 H 97 04/17/19 11:40 82 97 04/17/19 11:35 81 97 04/17/19 11:30 79 97 04/17/19 11:25 78 98 04/17/19 11:20 87 98 04/17/19 11:15 78 98 04/17/19 11:10 76 98 04/17/19 11:05 92 H 98 04/17/19 11:00 81 97 04/17/19 10:55 81 97 04/17/19 10:50 81 98 04/17/19 10:45 86 97 04/17/19 10:40 82 97 04/17/19 10:35 88 97 04/17/19 10:30 82 97 04/17/19 10:25 83 97 04/17/19 10:20 115 H 98 04/17/19 10:15 94 H 97
--- NOTE | 2019-04-24 02:23 | Discharge Summary ---
DETAILS OF ADMISSION: The patient is a 23-year-old G1, P0 at 29 weeks and 6 days of gestation, who presented to labor and delivery on the morning of 04/17/2019 with recurrent abdominal pain. This was the 5th visit since 26 weeks with the same complaint. She was initially started on Procardia to relax her uterus and stop her contractions and then sent home. She came a few more times after that. On 04/17/2019, she was given IV Stadol, IV Pepcid and she did not respond. She denied fever, chills, nausea, vomiting, any problem with urination or constipation. She reported that she has been eating [employer] fried food consistently due to her working at [employer]. I called medicine consultation on 04/17/2019 and they came and they saw her, they could not find any specific reason for her pain. Her workup with abdominal MRI, pelvic ultrasound was normal within prior visits. During this visit, her vital signs were stable, afebrile. heart rate was reassuring. She did not have any contractions on the monitor. Her cervix has not changed. She was put on low fat diet, started on IV Pepcid and IV Tylenol and IV Stadol as needed for pain. She improved in the afternoon and she wanted to go home after dinner in the evening of 04/17/2019. Discharge instructions were given. Prescriptions were written for Pepcid and she is to be seen in the office for followup.
== END 2019-04-17 22:30 | disposition home or self-care (01) ==
LOC: OPB 02:49 → 4S1 02:49

== ENCOUNTER 2019-05-27 03:28 | Inpatient (IN) ==
[2019-05-27 04:08] LABS: Appearance Urine Clear (Clear); Bilirubin Urine Negative (Negative); Blood Urine Negative (Negative); Color Urine Yellow; Glucose Urine UA Negative (Negative); Ketones Urine Negative (Negative); Leukocyte Esterase Urine Negative (Negative); Nitrite Urine Negative (Negative); Protein Urine Negative (Negative); Specific Gravity Urine 1.023 (1.000-1.030); Urobilinogen Urine Negative (Negative)
[2019-05-27] MEDS ORDERED: LACTATED RINGER'S 1,000 ML IV ONE ×2 (04:53→07:48)
[2019-05-27] MEDS ORDERED: OXYTOCIN 30 UNITS/500 ML BAG IV PRN (05:31)
[2019-05-27] MEDS ORDERED: PENICILLIN G POTASSIUM 6 MU in DEXTROSE 5% 250 ML IV STA (05:31)
[2019-05-27] MEDS: LACTATED RINGER'S 1,000 ML IV PRN ×2 (06:04→08:45)
[2019-05-27 06:10] LABS: Hematocrit (blood only) 30.2 % (37-47); Hemoglobin 10.1 g/dL (12.0-16.0); Mean Corpuscular Hemoglobin 29.4 pg (25-34); Mean Platelet Volume 10.2 fL (7.4-10.4); Platelet Count 261 K/uL (130-400); RDW Coefficient of Variation 12.8 % (11.5-14.5); RDW Standard Deviation 41.3 fL (36.4-46.3); Red Blood Count 3.43 M/uL (4.2-5.4); White Blood Count 12.09 K/uL (4.8-10.8)
[2019-05-27 06:18] LABS: Mean Corpuscular Hgb Conc 33.4 g/dL (32-36)
[2019-05-27] MEDS ORDERED: ePHEDrine sulfate 50 MG/ML AMP ONE (06:27)
[2019-05-27] MEDS ORDERED: BUPIVACAINE 0.25% 30 ML VIAL ONE (06:27)
[2019-05-27] MEDS ORDERED: fentaNYL citrate 100 MCG/2 ML VIAL ONE (06:27)
[2019-05-27] MEDS ORDERED: fentaNYL 2MCG/ML ROPIV 1.25MG/ML 100 ML BAG EPI ONE (06:28)
[2019-05-27] MEDS ORDERED: BUTORPHANOL TARTRATE 1 MG/ML VIAL IV ONE (07:48)
[2019-05-27] MEDS ORDERED: TERBUTALINE SULFATE 1 MG/ML VIAL SQ ONE (07:48)
--- NOTE | 2019-05-27 07:53 | Obstetrical Progress Note ---
Date of Service May 27, 2019 Assessment & Plan Admission and Anticipated Discharge Date Admission Date: May 27, 2019 Subjective Patient is seen and examined She was admitted by Dr Buckner for labor She is known to me from before Started to have ctxs at 10 pm last night, got closer and more painful after 3 am Her cervix was 4/70%/-2 by her nurse GBS in urine, receiving PCN No change her medical history VE; 3-4cm/ 50%/ -2, vertex FHR categ I [place]: ctxs q4-6 min AP: 23 yo at 35.4 wks with ctxs and some cervical change from before but none since admission here Does not seem like active labor but uncomfortable with ctxs Plan to observe, IVF, Stadol for and and one dose of Terbutaline and reevaluate All questions were answered Results & Data ([facility]) Vital Signs (Past 12 Hours) Vital Signs Temp Pulse Resp BP 05/27/19 07:28 36.6 C 18 05/27/19 07:25 77 124/68 05/27/19 03:35 36.6 C 63 18 115/69
--- NOTE | 2019-05-27 09:51 | Obstetrical Progress Note ---
Date of Service May 27, 2019 Assessment & Plan Admission and Anticipated Discharge Date Admission Date: May 27, 2019 Subjective Patient is reevaluated She fellt well for a while and slpet and then ctxs started back again and painful She saw wet spot on her sheets this am no LOF since then SEE; mucus, no pooling, Nitrazine negative Ferning absent Cervix unchanged, higher than before and more posterior Symptomatic ctxs with no cervical change s/p Steroid series Plan to start Procardia and reevaluate Results & Data ([facility]) Vital Signs (Past 12 Hours) Vital Signs Temp Pulse Resp BP Pulse Ox 05/27/19 09:42 102 H 98 05/27/19 09:37 107 H 97 05/27/19 09:32 96 H 96 05/27/19 09:27 102 H 97 05/27/19 09:22 99 H 96 05/27/19 09:17 106 H 126/59 L 96 05/27/19 09:12 120 H 97 05/27/19 09:07 115 H 95 05/27/19 09:02 108 H 96 05/27/19 08:57 122 H 96 05/27/19 08:52 107 H 95 05/27/19 08:47 113 H 97 05/27/19 08:44 125 H 18 118/71 05/27/19 08:42 106 H 96 05/27/19 08:37 116 H 97 05/27/19 08:32 125 H 95 05/27/19 08:27 116 H 96 05/27/19 08:22 101 H 96 05/27/19 08:18 103 H 94 05/27/19 08:17 98 H 95 05/27/19 08:13 85 115/66 05/27/19 08:12 77 18 95 05/27/19 08:11 87 93 05/27/19 08:07 96 05/27/19 08:03 76 110/56 L 05/27/19 08:02 77 96 05/27/19 07:28 36.6 C 18 05/27/19 07:25 77 124/68 05/27/19 03:35 36.6 C 63 18 115/69
[2019-05-27] MEDS ORDERED: BUTORPHANOL TARTRATE 1 MG/ML VIAL IV PRN ×2 (09:52→10:20)
[2019-05-27] MEDS ORDERED: NIFEdipine 10 MG CAP PO ONE (10:00)
[2019-05-27] MEDS: PENICILLIN G POTASSIUM 3 MU in DEXTROSE 5% 100 ML IV PRN ×2 (10:14→14:36)
[2019-05-27] MEDS ORDERED: BUTORPHANOL TARTRATE 1 MG/ML VIAL ONE (10:43)
[2019-05-27] MEDS ORDERED: ACETAMINOPHEN 1,000 MG/100 ML VIAL IV PRN (12:51)
[2019-05-27] MEDS ORDERED: ACETAMINOPHEN 1000 MG/100 ML IV IV ONE (13:00)
[2019-05-27] MEDS: NIFEdipine 10 MG CAP PO SCH ×2 (13:48→17:41)
--- NOTE | 2019-05-27 17:24 | Obstetrical Progress Note ---
Date of Service May 27, 2019 Assessment & Plan Admission and Anticipated Discharge Date Admission Date: May 27, 2019 Subjective Patient is reevaluated SH ehas irregular ctxs No LOF/VB +FM Cervix: 3-4 CM/ 50%/ -3, posterior, unchanged since admission Patient is hungry and asking for food Discussed findings, Symptomatic ctxs with no cervical change, not in labor Discussed growth and maturation till 39 weeks Discussed comfort measures during They decided to go home and rest and call back with more regular ctxs Plan to d/c home with Procardia and f/u in office Results & Data ([place]) Vital Signs (Past 12 Hours) Vital Signs Temp Pulse Resp BP Pulse Ox 05/27/19 15:49 36.8 C 20 05/27/19 15:48 77 118/68 05/27/19 14:38 36.7 C 96 H 18 119/58 L 05/27/19 12:38 36.7 C 18 05/27/19 11:47 95 H 130/59 L 05/27/19 10:12 18 05/27/19 09:42 102 H 98 05/27/19 09:37 107 H 97 05/27/19 09:32 96 H 96 05/27/19 09:27 102 H 97 05/27/19 09:22 99 H 96 05/27/19 09:17 106 H 126/59 L 96 05/27/19 09:12 120 H 97 05/27/19 09:07 115 H 95 05/27/19 09:02 108 H 96 05/27/19 08:57 122 H 96 05/27/19 08:52 107 H 95 05/27/19 08:47 113 H 97 05/27/19 08:44 125 H 18 118/71 05/27/19 08:42 106 H 96 05/27/19 08:37 116 H 97 05/27/19 08:32 125 H 95 05/27/19 08:27 116 H 96 05/27/19 08:22 101 H 96 05/27/19 08:18 103 H 94 05/27/19 08:17 98 H 95 05/27/19 08:13 85 115/66 05/27/19 08:12 77 18 95 05/27/19 08:11 87 93 05/27/19 08:07 96 05/27/19 08:03 76 110/56 L 02/20/20 08:02 77 96 05/27/19 07:28 36.6 C 18 05/27/19 07:25 77 124/68
== END 2019-05-27 17:45 | disposition home or self-care (01) | DRG 833 ==
LOC: OPB 03:28 → 4S1 03:29

== ENCOUNTER 2019-06-26 08:27 | Inpatient (IN) ==
[2019-06-26] MEDS ORDERED: OXYTOCIN 30 UNITS/500 ML BAG IV PRN ×2 (09:04→21:43)
[2019-06-26] MEDS: LACTATED RINGER'S 1,000 ML IV PRN ×3 (09:09→17:13)
[2019-06-26] MEDS ORDERED: PENICILLIN G POTASSIUM 6 MU in DEXTROSE 5% 250 ML IV ONE (09:10)
[2019-06-26] MEDS ORDERED: ePHEDrine sulfate 50 MG/ML AMP ONE (09:20)
[2019-06-26] MEDS ORDERED: BUPIVACAINE 0.25% 30 ML VIAL ONE (09:20)
[2019-06-26] MEDS ORDERED: fentaNYL citrate 100 MCG/2 ML VIAL ONE ×2 (09:21→14:08)
[2019-06-26] MEDS ORDERED: fentaNYL 2MCG/ML ROPIV 1.25MG/ML 100 ML BAG EPI ONE ×2 (09:22→15:57)
[2019-06-26 09:29] LABS: Hematocrit (blood only) 29.9 % (37-47); Hemoglobin 9.7 g/dL (12.0-16.0); Mean Corpuscular Hemoglobin 28.2 pg (25-34); Mean Corpuscular Volume 86.9 fL (80-100); Mean Platelet Volume 10.6 fL (7.4-10.4); Platelet Count 281 K/uL (130-400); RDW Coefficient of Variation 13.6 % (11.5-14.5); RDW Standard Deviation 42.7 fL (36.4-46.3); Red Blood Count 3.44 M/uL (4.2-5.4); White Blood Count 18.48 K/uL (4.8-10.8)
[2019-06-26] MEDS ORDERED: DiphenhydrAMINE HCL 50 MG/ML VIAL IV PRN (09:49)
[2019-06-26] MEDS ORDERED: NALBUPHINE HCL INJ 10 MG/ML AMP IV PRN (09:49)
[2019-06-26] MEDS ORDERED: NALOXONE HCL 1 MG in SODIUM CHLORIDE 0.9% 1000ML 1,000 ML IV PRN (09:49)
[2019-06-26] MEDS ORDERED: NALOXONE HCL 0.4 MG/1 ML VIAL/CARP IV PRN (09:49)
[2019-06-26] MEDS ORDERED: ePHEDrine sulfate 50 MG/ML AMP IV PRN (09:49)
--- NOTE | 2019-06-26 09:51 | Anesthesiology Consultation ---
Date of Service June 26, 2019 Assessment & Plan Chart Review Chart Review: Acceptable Risk for Labor Epidural Consults Requested none History Height/Weight Height: 5 ft 4 in Weight: 82.1 kg Allergies Allergy/AdvReac Type Severity Reaction Status Date / Time morphine Allergy Mild Rash Verified 06/26/19 08:49 Medications Home Medications Medication Instructions Recorded Confirmed Last Taken Vitamin 1 tab PO HS 04/20/19 06/26/19 06/25/19 20:30 valacyclovir [Valtrex] 500 mg PO QAM 06/04/19 06/26/19 06/25/19 20:30 Active Medications Generic Name Dose Route Start Last Admin Trade Name Freq PRN Reason Stop Dose Admin Lactated Ringer's 1,000 mls @ 125 mls/hr 06/26/19 09:04 06/26/19 09:09 Lr IV 06/28/19 09:03 999 mls/hr .Q8H PRN Administration L&D Protocol Protocol Penicillin G Potassium 6 mu/ 262 mls @ 262 mls/hr 06/26/19 09:10 06/26/19 09:35 Dextrose IV 06/26/19 10:09 262 mls/hr NOW ONE Administration Past Medical History Medical History Depression No meds 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
[2019-06-26 09:53] LABS: Mean Corpuscular Hgb Conc 32.4 g/dL (32-36)
--- NOTE | 2019-06-26 11:40 | Obstetrical Progress Note ---
Date of Service June 26, 2019 Assessment & Plan Admission and Anticipated Discharge Date Admission Date: June 26, 2019 Subjective Pt doing well Epidural analgesia in place FHR: CAT! ctx 2-3mins VE; 5/100/-2 AROM- clear anticipate VD Results & Data ([facility]) Vital Signs (Past 12 Hours) Vital Signs Temp Pulse Resp BP Pulse Ox 06/26/19 11:35 73 97 06/26/19 11:30 73 98 06/26/19 11:27 77 123/68 06/26/19 11:25 74 20 96 06/26/19 11:20 68 97 06/26/19 11:15 68 98 06/26/19 11:12 74 118/62 06/26/19 11:10 36.9 C 79 20 98 06/26/19 11:05 67 97 06/26/19 11:00 69 98 06/26/19 10:56 68 111/56 L 06/26/19 10:55 70 20 98 06/26/19 10:50 74 98 06/26/19 10:45 76 97 06/26/19 10:40 75 20 97 06/26/19 10:37 72 113/55 L 06/26/19 10:35 84 98 06/26/19 10:32 90 120/55 L 06/26/19 10:30 85 98 06/26/19 10:28 86 110/61 06/26/19 10:25 36.9 C 96 H 20 98 06/26/19 10:20 79 116/65 98 06/26/19 10:19 80 121/69 06/26/19 10:16 76 118/65 06/26/19 10:15 80 98 06/26/19 10:14 81 135/55 L 06/26/19 10:12 81 119/58 L 06/26/19 10:10 87 128/74 99 06/26/19 10:08 90 140/80 06/26/19 10:05 92 H 140/84 99 06/26/19 10:00 98 H 100 06/26/19 09:55 76 100 06/26/19 09:50 81 141/91 H 100 06/26/19 08:35 36.5 C 83 20 133/67
[2019-06-26] MEDS: PENICILLIN G POTASSIUM 3 MU in DEXTROSE 5% 100 ML IV PRN ×2 (13:29→17:33)
[2019-06-26] MEDS: fentaNYL 2MCG/ML ROPIV 1.25MG/ML 100 ML BAG EPI PRN ×2 (13:37→20:41)
[2019-06-26] MEDS ORDERED: LIDOCAINE HCL 2% MPF (LOCAL) 5 ML VIAL INFIL ONE (14:09)
[2019-06-26] MEDS ORDERED: TERBUTALINE SULFATE 1 MG/ML VIAL ONE (17:00)
--- NOTE | 2019-06-26 17:04 | Obstetrical Progress Note ---
Date of Service June 26, 2019 Assessment & Plan Admission and Anticipated Discharge Date Admission Date: June 26, 2019 Subjective Called to evaluate pt with deceleration On arrival to the room pt was on her left side FHR 80;s VE ;9/100/-1 Fetus responded to scalp stimulation 'Oxygen given IVF given Terbutaline given SQ scalp electrode placed FR returned to baseline Results & Data ([facility]) Vital Signs (Past 12 Hours) Vital Signs Temp Pulse Resp BP Pulse Ox 06/26/19 16:55 76 100 06/26/19 16:50 85 99 06/26/19 16:45 76 155/83 H 100 06/26/19 16:40 89 98 06/26/19 16:35 73 99 06/26/19 16:30 72 20 99 06/26/19 16:29 78 137/89 06/26/19 16:25 94 H 99 06/26/19 16:20 84 99 06/26/19 16:15 80 142/76 H 100 06/26/19 16:10 73 100 06/26/19 16:05 69 100 06/26/19 16:00 70 20 134/62 99 06/26/19 15:55 82 99 06/26/19 15:52 78 93 06/26/19 15:50 93 H 98 06/26/19 15:45 87 133/81 88 L 06/26/19 15:44 89 94 06/26/19 15:40 99 H 99 06/26/19 15:35 80 98 06/26/19 15:30 86 20 112/66 99 06/26/19 15:25 68 97 06/26/19 15:20 71 98 06/26/19 15:17 36.7 C 20 06/26/19 15:15 90 98 06/26/19 15:11 82 130/83 06/26/19 15:10 83 98 06/26/19 15:07 79 138/88 06/26/19 15:05 83 98 06/26/19 15:01 80 138/82 06/26/19 15:00 84 20 97 06/26/19 14:56 87 133/88 06/26/19 14:55 82 98 06/26/19 14:52 76 130/78 06/26/19 14:50 89 98 06/26/19 14:47 91 H 127/75 06/26/19 14:45 83 98 06/26/19 14:41 95 H 126/76 06/26/19 14:40 92 H 98 06/26/19 14:37 87 128/80 06/26/19 14:35 91 H 98 06/26/19 14:32 88 132/71 06/26/19 14:30 86 20 97 06/26/19 14:28 80 137/75 06/26/19 14:25 78 97 06/26/19 14:21 74 129/80 06/26/19 14:20 99 H 98 06/26/19 14:17 72 135/83 06/26/19 14:15 74 98 06/26/19 14:11 79 135/94 06/26/19 14:10 78 99 06/26/19 14:05 88 91 06/26/19 14:04 85 89 L 06/26/19 14:00 72 20 99 06/26/19 13:57 93 H 131/97 06/26/19 13:55 80 99 06/26/19 13:50 95 H 99 06/26/19 13:45 74 98 06/26/19 13:42 79 138/86 06/26/19 13:40 83 98 06/26/19 13:35 74 99 06/26/19 13:30 90 99 06/26/19 13:27 36.6 C 77 22 125/67 06/26/19 13:25 80 98 06/26/19 13:20 74 98 06/26/19 13:15 78 99 06/26/19 13:11 69 116/58 L 06/26/19 13:10 74 98 06/26/19 13:05 76 98 06/26/19 13:00 79 20 99 06/26/19 12:57 78 124/60 06/26/19 12:55 80 98 06/26/19 12:50 73 98 06/26/19 12:45 66 98 06/26/19 12:41 72 130/75 06/26/19 12:40 91 H 99 06/26/19 12:35 85 98 06/26/19 12:30 91 H 99 06/26/19 12:29 20 06/26/19 12:28 75 132/82 06/26/19 12:25 85 98 06/26/19 12:20 71 98 03/21/20 12:15 79 98 06/26/19 12:11 83 20 125/80 06/26/19 12:10 74 99 06/26/19 12:05 95 H 99 06/26/19 12:00 101 H 99 06/26/19 11:56 75 132/80 06/26/19 11:55 84 98 06/26/19 11:50 97 H 98 06/26/19 11:45 87 98 06/26/19 11:41 93 H 129/77 06/26/19 11:40 36.5 C 83 20 98 06/26/19 11:35 73 97 06/26/19 11:30 73 98 06/26/19 11:27 77 123/68 06/26/19 11:25 74 20 96 06/26/19 11:20 68 97 06/26/19 11:15 68 98 06/26/19 11:12 74 118/62 06/26/19 11:10 36.9 C 79 20 98 06/26/19 11:05 67 97 06/26/19 11:00 69 98 06/26/19 10:56 68 111/56 L 06/26/19 10:55 70 20 98 06/26/19 10:50 74 98 06/26/19 10:45 76 97 06/26/19 10:40 75 20 97 06/26/19 10:37 72 113/55 L 06/26/19 10:35 84 98 06/26/19 10:32 90 120/55 L 06/26/19 10:30 85 98 06/26/19 10:28 86 110/61 06/26/19 10:25 36.9 C 96 H 20 98 06/26/19 10:20 79 116/65 98 06/26/19 10:19 80 121/69 06/26/19 10:16 76 118/65 06/26/19 10:15 80 98 06/26/19 10:14 81 135/55 L 06/26/19 10:12 81 119/58 L 06/26/19 10:10 87 128/74 99 06/26/19 10:08 90 140/80 06/26/19 10:05 92 H 140/84 99 06/26/19 10:00 98 H 100 06/26/19 09:55 76 100 06/26/19 09:50 81 141/91 H 100 06/26/19 08:35 36.5 C 83 20 133/67
[2019-06-26] MEDS ORDERED: ONDANSETRON INJ 2 MG/ML 2 ML VIAL IV PRN (17:36)
[2019-06-26] MEDS: OXYTOCIN 30 UNITS/500 ML BAG IV PRN ×2 (19:12→22:05)
[2019-06-26] MEDS ORDERED: METHYLERGONOVINE MALEATE 0.2 MG/ML AMP ONE (21:30)
[2019-06-26] MEDS ORDERED: miSOPROStoL 200 MCG TAB ONE (21:35)
[2019-06-26] MEDS ORDERED: METHYLERGONOVINE MALEATE 0.2 MG/ML AMP IM ONE (21:43)
[2019-06-26] MEDS ORDERED: miSOPROStoL 200 MCG TAB PR ONE (21:43)
[2019-06-26] MEDS ORDERED: DIPHTHERIA/TETANUS/PERTUSSIS 0.5 ML SYR/VIAL IM ONE (21:43)
[2019-06-26] MEDS ORDERED: SUPERCREAM 0.870% 15 GM JAR EXT PRN (21:43)
[2019-06-26] MEDS ORDERED: bisacodyL 10 MG SUPP PR PRN (21:43)
[2019-06-26] MEDS ORDERED: BENZOCAINE 20% AER SPR 82.5 GM CAN EXT PRN (21:43)
[2019-06-26] MEDS ORDERED: HYDROCORTISONE ACETATE 25 MG SUPP PR PRN (21:43)
[2019-06-26] MEDS ORDERED: ACETAMINOPHEN 325 MG TAB PO PRN (21:43)
[2019-06-26] MEDS ORDERED: OXYTOCIN 20 UNITS in LACTATED RINGER'S 1,000 ML IV SCH (21:45)
[2019-06-26] MEDS ORDERED: GENTAMICIN CONSULT ACTIVE PRN (23:50)
[2019-06-26] MEDS ORDERED: ACETAMINOPHEN 500 MG TAB PO ONE (23:54)
[2019-06-26] MEDS ORDERED: ACETAMINOPHEN 500 MG TAB ONE (23:57)
[2019-06-27] MEDS ORDERED: AMPICILLIN 2,000 MG in SODIUM CHLOR 0.9% AD-VAN 100 ML IV ONE
[2019-06-27] MEDS: LACTATED RINGER'S 1,000 ML IV PRN (00:49)
[2019-06-27] MEDS ORDERED: GENTAMICIN SULFATE 320 MG in DEXTROSE 5% 100 ML IV ONE (01:00)
[2019-06-27 01:29] LABS: Appearance Urine Clear (Clear); Bacteria Urine Automated Negative (Negative); Bilirubin Urine Negative (Negative); Blood Urine 3+ (Negative); Color Urine Orange; Epithelial Cell Urine Auto >30 /lpf (0-5); Glucose Urine UA Negative (Negative); Ketones Urine Negative (Negative); Leukocyte Esterase Urine 1+ (Negative); Nitrite Urine Negative (Negative); Protein Urine Negative (Negative); RBC Urine Automated >30 /hpf (0-4); Specific Gravity Urine 1.011 (1.000-1.030); Urobilinogen Urine Negative (Negative); pH Urine 7.5 (4.5-7.5)
[2019-06-27 05:48] LABS: Hematocrit (blood only) 24.3 % (37-47); Mean Corpuscular Hemoglobin 28.6 pg (25-34); Mean Corpuscular Hgb Conc 32.9 g/dL (32-36); Mean Corpuscular Volume 86.8 fL (80-100); Mean Platelet Volume 10.5 fL (7.4-10.4); Platelet Count 237 K/uL (130-400); RDW Coefficient of Variation 13.7 % (11.5-14.5); White Blood Count 18.95 K/uL (4.8-10.8)
[2019-06-27] MEDS: AMPICILLIN 1,000 MG in SODIUM CHLOR 0.9% AD-VAN 50 ML IV SCH ×3 (06:30→18:39)
[2019-06-27] MEDS: DOCUSATE SODIUM 100 MG CAP PO SCH ×2 (08:14→20:54)
[2019-06-27] MEDS: PRENATAL VITAMIN 1 TAB PO SCH (08:14)
--- NOTE | 2019-06-27 10:30 | Anesthesia Procedure Note ---
Date of Service June 27, 2019 Anesthesia Post Epidural Note Vital Signs Vital Signs: Temp Pulse Resp BP Pulse Ox 37 C 106 H 16 126/82 98 06/27/19 04:55 06/27/19 04:55 06/27/19 04:55 06/27/19 04:55 06/26/19 21:40 Pain Intensity Bilateral Abdomen: Pain Intensity: 6 Lower Back: Pain Intensity: 6 Bilateral Episiotomy/Laceration: Pain Intensity: 1 Notes Mental Status: alert / awake / arousable Nausea / Vomiting: adequately controlled Pain: adequately controlled Airway Patency, RR, SpO2: stable & adequate BP & HR: stable & adequate Hydration State: stable & adequate Neuraxial Anesthesia: was administered and sensory block is resolving Anesthetic Complications: no major complications apparent and Pt Satisfied with anesthetic care Epidural: Removed without complications and With tip intact
--- NOTE | 2019-06-27 11:00 | Obstetrical Progress Note ---
Date of Service June 27, 2019 Assessment & Plan Admission and Anticipated Discharge Date Admission Date: June 26, 2019 Review of Systems Review of Systems: PPD #1 doing well tolerating diet passing gas Physical Exam Constitutional: WD/WN, vitals as above comfortable abdomen soft and non- tender no edema neg Dwayne's tent d/c in AM Results & Data ([facility]) Vital Signs (Past 12 Hours) Vital Signs Temp Pulse Pulse Resp BP BP 06/27/19 04:55 37 C 106 H 16 126/82 06/27/19 01:35 37.9 C H 06/27/19 00:55 39.4 C H 108 H 16 127/81 06/26/19 23:54 39.0 C H 06/26/19 23:27 38.5 C H 130 H 20 142/85 H 06/26/19 23:12 116 H 140/92 Laboratory Results Laboratory Results - last 72 hr 06/26/19 06/27/19 06/27/19 09:17 01:10 05:30 WBC 18.48 H 18.95 H RBC 3.44 L 2.80 L Hgb 9.7 L 8.0 L Hct 29.9 L 24.3 L MCV 86.9 86.8 MCH 28.2 28.6 MCHC 32.4 32.9 RDW Std Deviation 42.7 43.0 RDW Coeff of Griselda 13.6 13.7 Plt Count 281 237 MPV 10.6 H 10.5 H Urine Color [place] Urine Appearance Clear Urine pH 7.5 Ur Specific [place] 1.011 Urine Protein Negative Urine Glucose (UA) Negative Urine Ketones Negative Urine Blood 3+ H Urine Nitrite Negative Urine Bilirubin Negative Urine Urobilinogen Negative Ur Leukocyte Esterase 1+ H Urine WBC (Auto) 10-30 H Urine RBC (Auto) >30 H U Hyaline Cast (Auto) 1-5 U Epithel Cells (Auto) >30 H Urine Bacteria (Auto) Negative Random Gentamicin 06/27/19 07:45 WBC RBC Hgb Hct MCV MCH MCHC RDW Std Deviation RDW Coeff of Griselda Plt Count MPV Urine Color Urine Appearance Urine pH Ur Specific [place] Urine Protein Urine Glucose (UA) Urine Ketones Urine Blood Urine Nitrite Urine Bilirubin Urine Urobilinogen Ur Leukocyte Esterase Urine WBC (Auto) Urine RBC (Auto) U Hyaline Cast (Auto) U Epithel Cells (Auto) Urine Bacteria (Auto) Random Gentamicin 2.60
--- NOTE | 2019-06-27 11:24 | Pharmacy Report ---
Pharmacy Abx Initial Consult - Date of Service June 27, 2019 - Pharmacy Dosing Scope Date of Consult: 06/27/19 Consultation requested by: Dr. Skinner Pharmacy is consulted to initiate Gentamicin dosing therapy, order appropriate labs and adjust drug dose/frequency. - Subjective The patient is a 23 year old F admitted on 06/26/19 09:04. - Objective Height: 5 ft 4 in Weight: 82.1 kg Vital Signs (Past 12hrs): Vital Signs Temp Pulse Pulse Resp BP BP 06/27/19 04:55 37 C 106 H 16 126/82 06/27/19 01:35 37.9 C H 06/27/19 00:55 39.4 C H 108 H 16 127/81 06/26/19 23:54 39.0 C H 06/26/19 23:27 38.5 C H 130 H 20 142/85 H Lab Results (24hrs): Laboratory Tests (24 Hours) 06/27/19 06/27/19 07:45 05:30 WBC 18.95 H Random Gentamicin 2.60 Micro Results: 06/27/19 01:10 Urine Culture - Pending Urine,Clean Catch 06/27/19 00:27 Aerobic Blood Culture - Pending Blood Anaerobic Blood Culture - Pending 06/27/19 00:41 Aerobic Blood Culture - Pending Blood Anaerobic Blood Culture - Pending - Assessment & Plan Assessment 23 year old F admitted for labor and delivery. She is currently post . Elevated WBC and temperature, suspect bacteremia. Blood and urine cultures pending. Patient is empirically started on Ampicillin and Gentamicin. Plan Gentamicin for possible bacteremia * Patient meets criteria for extended-interval aminoglycoside dosing in the post setting. * Dose: 410 mg (5 mg/kg) IV q24h per Gentamicin dosing protocol. * Scr and Crcl from 06/04/19 = 0.5 and 169ml/min respectively. Ordered serum creat tomorrow with AM labs to confirm appropriate renal function. * Random Gent level drawn 6 hrs after 1st dose of Gent given early this morning confirms patient can continue with Q24h dosing frequency. * Will order another random level if therapy continues beyond 72 hrs. Pharmacy will continue to follow and will adjust dose/frequency as necessary. Thank you.
[2019-06-27] MEDS: IBUPROFEN 600 MG TAB PO PRN ×2 (13:25→17:24)
[2019-06-27] MEDS: FERROUS SULFATE 325 MG TAB PO SCH (17:24)
[2019-06-27] MEDS ORDERED: bisacodyL 5 MG TABEC PO SCH (20:00)
[2019-06-27] MEDS ORDERED: GENTAMICIN SULFATE IV SCH (23:00)
[2019-06-27] MEDS ORDERED: DEXTROSE 5% IV SCH (23:00)
[2019-06-28] MEDS: AMPICILLIN 1,000 MG in SODIUM CHLOR 0.9% AD-VAN 50 ML IV SCH ×2 (00:07→06:19)
[2019-06-28] MEDS: IBUPROFEN 600 MG TAB PO PRN (05:51)
[2019-06-28 06:21] LABS: Basophils # (auto) 0.03 K/uL (0-0.2); Basophils % (auto) 0.3 %; Eosinophils # (auto) 0.12 K/uL (0-0.5); Hematocrit (blood only) 23.6 % (37-47); Hemoglobin 7.6 g/dL (12.0-16.0); Immature Granulocytes # (auto) 0.11 K/uL (0.00-0.02); Lymphocytes # (auto) 2.54 K/uL (1.2-3.4); Lymphocytes % (auto) 22.2 %; Mean Corpuscular Hemoglobin 28.6 pg (25-34); Mean Corpuscular Hgb Conc 32.2 g/dL (32-36); Mean Corpuscular Volume 88.7 fL (80-100); Mean Platelet Volume 9.9 fL (7.4-10.4); Monocytes # (auto) 0.82 K/uL (0.11-0.59); Monocytes % (auto) 7.2 %; Neutrophils # (auto) 7.82 K/uL (1.4-6.5); Neutrophils % (auto) 68.3 %; Platelet Count 259 K/uL (130-400); RDW Coefficient of Variation 14.3 % (11.5-14.5); RDW Standard Deviation 45.4 fL (36.4-46.3); Red Blood Count 2.66 M/uL (4.2-5.4); White Blood Count 11.44 K/uL (4.8-10.8)
[2019-06-28 06:49] LABS: Polychromasia 1+
[2019-06-28 07:15] LABS: Creatinine Clr Calc Pharmacy 156.3 ml/min; Est GFR (African American) > 150.0
--- NOTE | 2019-06-28 07:58 | Delivery Summary ---
DATE OF OPERATION: 06/26/2019 The patient delivered a live infant in occiput anterior presentation with nuchal cord which was easily reduced. The was delivered, placed on mother's abdomen. Cord was clamped and cut, handed over to the pediatric team. The patient's weight is pending. Apgars 7 and 9. Cord blood was obtained. Placenta spontaneously delivered. Inspection of the placenta shows a normal grossly looking placenta with 3-vessel cord. Estimated blood loss is 450 mL. Inspection of the perineum shows left labial laceration. No other lacerations are seen in the vagina. There is good hemostasis. The patient is in recovery. All instruments were removed from the vagina and accounted for x2 including sponges, needles, and retractors. The laceration in the labia was repaired with 3-0 Vicryl and there is good hemostasis post repair. I attest to the content of the Intraoperative Record and any orders documented therein. Any exception s are noted below.
[2019-06-28] MEDS: DOCUSATE SODIUM 100 MG CAP PO SCH (08:17)
[2019-06-28] MEDS: PRENATAL VITAMIN 1 TAB PO SCH (08:17)
[2019-06-28] MEDS: FERROUS SULFATE 325 MG TAB PO SCH (08:17)
--- NOTE | 2019-06-28 10:23 | Obstetrical Progress Note ---
Date of Service June 28, 2019 Assessment & Plan (1) Normal course: PPD #2 pt doing well s/c home with instructions Results & Data Vital Signs (Past 12 Hours) Vital Signs Temp Pulse Resp BP Pulse Ox 06/28/19 07:45 36.4 C L 83 16 117/69 98 06/28/19 02:50 36.8 C 96 H 18 143/82 H 97 06/28/19 00:15 36.6 C 89 14 114/69 99
== END 2019-06-28 11:55 | disposition home or self-care (01) | DRG 807 ==
LOC: OPB 08:27 → 4S1 08:29 → 4S2 23:55